=== PATIENT | male | born 1950 | race Caucasian/White ===

== ENCOUNTER → 2020-08-24 13:10 | Outpatient (BNVA) | payer MEDICARE, SELFPAY | PROVIDERS: PCP Internal Medicine; Visit Provider Urology | DX: N40.1 Benign prostatic hyperplasia with lower urinary tract symptoms (principal); R35.1 Nocturia; N13.8 Other obstructive and reflux uropathy | CPT/HCPCS: 51798; 81002; 99212 ==

== ENCOUNTER → 2021-02-22 10:41 | Outpatient (BNVA) | payer MEDICARE, SELFPAY | PROVIDERS: PCP Internal Medicine; Referring Provider Internal Medicine; Visit Provider Urology | DX: N40.1 Benign prostatic hyperplasia with lower urinary tract symptoms (principal); N13.8 Other obstructive and reflux uropathy | CPT/HCPCS: 51798; 99212 ==

== ENCOUNTER → 2021-08-23 09:28 | Outpatient (BNVA) | payer MEDICARE, SELFPAY | PROVIDERS: PCP Internal Medicine; Visit Provider Urology | DX: R35.1 Nocturia (principal); N40.1 Benign prostatic hyperplasia with lower urinary tract symptoms; N13.8 Other obstructive and reflux uropathy | CPT/HCPCS: 51798; 99212 ==

== ENCOUNTER → 2022-08-22 10:26 | Outpatient (BNVA) | payer MEDICARE, SELFPAY | PROVIDERS: PCP Internal Medicine; Visit Provider Urology | DX: N40.1 Benign prostatic hyperplasia with lower urinary tract symptoms (principal); N13.8 Other obstructive and reflux uropathy; R35.1 Nocturia | CPT/HCPCS: 51798; 99212 ==

== ENCOUNTER 2023-08-20 09:09 | Outpatient (AMB) | payer MEDICARE, SELFPAY ==
--- NOTE | 2023-08-20 09:40 | MHC.OFFVIS ---
Intake Intake Visit Reasons: 1Y pvr Intake Note: Patient is Present for Follow Up Urology Medication: Finasteride, Terazosin, Antibiotic Allergies: None Blood Thinners: Xarelto PVR: 257 Allergies No Known Allergies Allergy (Verified 08/20/23 09:41) HPI HPI Comments History of Present Illness Details Ken is a pleasant male. He is a patient of . Seen for the following urologic conditions - lower urinary tract symptoms PVR 250 Progressive weakness of stream Maximum medical therapy Recommend GreenLight laser prostatectomy Risks and benefits discussed Would like to proceed to late October early November Prior conversation about cycling in [place] through the [employer] Lower Urinary Tract Symptoms: Current visit is for further evaluation of, lower urinary tract symptoms, predominate obstructive symptoms. Current treatment includes 07/07 , alpha elaine, terazosin 10/08 , alpha elaine, terazosin, 5-AR, finasteride. Prostate Symptom Score Moderate (9-19), Bother 2. Symptoms include 06/07 , incomplete emptying, weak stream, nocturia (>2), and are progressing 10/08 , incomplete emptying 400cc, weak stream, and are stable. Results from testing include cystoscopy Trilobar hypertrophy 07/07 Prior Prostate Score moderate. PSA 10/08 5.8 01/06 5.1, 04/07 4.0, 06/09 2.1, 02/08 1.8, 08/11 1.9 Prostate volume 30-50gm. Testing at next visit will include bladder scan [facility] Medical History Pyuria H/O urinary retention Incomplete emptying of bladder Surgical History History of surgery Social History Patient Tobacco Use Status: Never used Tobacco Review of Systems Const Denies chills and Denies fever(s) Card Reports no additional complaints and Denies syncope Resp Denies cough GI Denies abdominal pain and Denies heartburn Reports as per HPI and Denies change in libido Neuro Denies syncope Psych Denies change in libido Endo Denies change in libido Physical Exam Const General: cooperative, healthy appearing, comfortable and no acute distress Orientation/consciousness: patient oriented x3 HEENT Face and sinus: Yes normal facial exam Mouth: moist mucous membranes Neck Neck: Yes normal visual inspection, Yes full ROM and Yes trachea midline Chest Chest palpation & inspection: normal inspection of the chest Resp Effort & Inspection: normal respiratory effort, able to speak in complete sentences and no respiratory distress GI Inspection: Yes normal to inspection Back/Spine/Pelvis Cervical Spine: normal cervical lordosis Thoracic/Lumbar Spine: thoracic and lumbar spine normal to inspection Skin General skin exam: no rashes or lesions noted Neuro General: patient oriented x3, gait normal, tone normal and moves all extremities Extrem General: Yes normal to inspection and Yes capillary refill normal Office Procedures Post Void Residual Post Residual Void Post Void Residual (PVR): 257 [id number] Void Residual by ultrasound Results AMB Urinalysis, Automated UA Leukoctes 500 Sai/uL Last Edit by Magnolia Cunningham [facility] on 08/20/23 09:51 UA Nitrite Negative Last Edit by Magnolia Cunningham [facility] on 08/20/23 09:51 UA Urobilinogen 0.2 mg/dL Last Edit by Magnolia Cunningham [facility] on 08/20/23 09:51 UA Protein 15 mg/dL Last Edit by Magnolia Cunningham [facility] on 08/20/23 09:51 UA pH 6.5 Last Edit by Magnolia Cunningham [facility] on 08/20/23 09:51 UA Blood 25 Kumar/uL Last Edit by Magnolia Cunningham [facility] on 08/20/23 09:51 UA Specific [place] 1.015 Last Edit by Magnolia Cunningham [facility] on 08/20/23 09:51 UA Ketone Negative Last Edit by Magnolia Cunningham [facility] on 08/20/23 09:51 UA Bilirubin 0 mg/dL Last Edit by Magnolia Cunningham [facility] on 08/20/23 09:51 UA Glucose 0 mg/dL Last Edit by Magnolia Cunningham [facility] on 08/20/23 09:51 Results Reviewed Results Reviewed: Laboratory Last Values Urine pH (Auto) 6.5 08/20/23 09:43 Specific [place] (Auto) 1.015 08/20/23 09:43 Urine Protein (Auto) 15 mg/dL 08/20/23 09:43 Glucose (UA)(Auto) 0 mg/dL 08/20/23 09:43 Urine Ketones (Auto) Negative 08/20/23 09:43 Urine Blood (Auto) 25 Kumar/uL 08/20/23 09:43 Urine Nitrite (Auto) Negative 08/20/23 09:43 Urine Bilirubin (Auto) 0 mg/dL 08/20/23 09:43 Urine Urobilinogen (Auto) 0.2 mg/dL 08/20/23 09:43 Leukocyte Esterase (Auto) 500 Sai/uL 08/20/23 09:43 Assessment & Plan Assessment & Plan (1) Nocturia more than twice per night: Code(s): R35.1 - Nocturia (2) BPH w urinary obs/LUTS: Code(s): N40.1 - Benign prostatic hyperplasia with lower urinary tract symptoms; N13.8 - Other obstructive and reflux uropathy Plan We discussed the nature of the decision and reasonable options for performing a prostate intervention. Interventions include TURP, GreenLight laser enucleation of the prostate, GreenLight laser ablation of the prostate, transurethral incision of the prostate, and I-Tend prostate procedure. Options such as medical therapy were discussed. The relative uncertainties and benefits related to each alternate procedure were adequately discussed. General surgical risks including, but not limited to, pain, bleeding, infection, myocardial infarction, pulmonary embolus, deep vein thrombosis and cerebrovascular accident which may result in further hospitalization were discussed. Full disclosure of the procedure as well as all major risks, benefits and complications were discussed including but not limited to damage to the urethra or bladder neck, recurrent BPH, retrograde ejaculation, bladder infection, urge, de goldy frequency, incomplete emptying, dysuria, remote chance of erectile dysfunction, epididymitis, and meatal stenosis. The success rate of the procedure was discussed. Success of the procedure in the short-term does not necessarily guarantee that long-term success will be maintained. Suitable follow up will need to be maintained. The patient showed understanding of discussion. An opportunity was provided for questions to be answered and wishes to proceed with the following procedure. - GreenLight laser prostatectomy Orders: Orders AMB Post Void Residual by ultrasound Today N13.8 - Other obstructive and reflux uropathy, N40.1 - Benign prostatic hyperplasia with lower urinary tract symptoms AMB Urinalysis Automated Today Z13.9 - Encounter for screening, unspecified Patient Instructions: Imaging studies, laboratory and physical exam results were discussed and reviewed in detail. No major barriers to patient understanding were identified. An opportunity to ask questions regarding the treatment plan was provided. All questions were answered. The patient expressed understanding and agreement with the above treatment plan. The patient is aware they should contact our office by phone for worsening of their current condition or the appearance of new urologic symptoms. Compliance is encouraged with any medications and followup testing that is ordered. It is a privilege to participate in the urologic care of your patient. If you have any questions or concerns regarding treatment for the above conditions, or other urologic issues, please do not hesitate to contact me. The office telephone contact is [phone]. This note is constructed using voice recognition software. While every effort has been made to ensure accuracy teletypist errors may have been included. Yours sincerely, Dr Neo Mcgraw MD, [facility] - Urology Providers of Expert, Compassionate Care for the Genitourinary System Coding Level of Care Code Est Pt Level 4 (65247) Diagnoses Nocturia more than twice per night R35.1 BPH w urinary obs/LUTS N40.1; N13.8 CPT Codes Post Residual Void - PVR CPT Code: 97374-Drfg Void Residual by ultrasound ([id number])
== END 2023-08-20 10:31 | disposition home or self-care (01) ==
PROVIDERS: Visit Provider Urology
DX: N40.1 Benign prostatic hyperplasia with lower urinary tract symptoms (principal); R35.1 Nocturia; N13.8 Other obstructive and reflux uropathy; Z13.9 Encounter for screening, unspecified
CPT/HCPCS: 99214

== ENCOUNTER → 2023-08-20 09:09 | Outpatient (BNVA) | payer MEDICARE, SELFPAY | PROVIDERS: Visit Provider Urology | DX: N40.1 Benign prostatic hyperplasia with lower urinary tract symptoms (principal); N13.8 Other obstructive and reflux uropathy; R35.1 Nocturia | CPT/HCPCS: 51798; 81003; 99212 ==

== ENCOUNTER 2023-11-19 09:03 | Outpatient (AMB) | payer MEDICARE, SELFPAY ==
--- NOTE | 2023-11-19 09:04 | A.OFFVIS_ITS ---
Intake Intake Visit Reasons: H&P Greenlight(Confirmed) Intake Note: Patient presents today for a telehealth follow-up Meds- Finasteride, Terazosin Allergies to Antibiotic- No Known Allergies Blood Thinner- None [employer] Required: No Allergies No Known Allergies Allergy (Verified 11/19/23 09:06) [facility] HPI Comments History of Present Illness Details Ken is a pleasant male. He is a patient of . Seen for the following urologic conditions - lower urinary tract symptoms Telemedicine Evaluation 15 min Consultation [employer] Video attempted Discussed procedure and periprocedure issues Questions answered Catheter will be removed on after same-day procedure on Thursday He is seeing cardiology next week they will give guidance regarding holding the anticoagulation PVR 250 Progressive weakness of stream Maximum medical therapy h Prior conversation about cycling in [place] through the [employer] Lower Urinary Tract Symptoms: Current visit is for further evaluation of, lower urinary tract symptoms, predominate obstructive symptoms. Current treatment includes 07/07 , alpha elaine, terazosin 10/08 , alpha elaine, terazosin, 5-AR, finasteride. Prostate Symptom Score Moderate (9-19), Bother 2. Symptoms include 06/07 , incomplete emptying, weak stream, nocturia (>2), and are progressing 10/08 , incomplete emptying 400cc, weak stream, and are stable. Results from testing include cystoscopy Trilobar hypertrophy 07/07 Prior Prostate Score moderate. PSA 10/08 5.8 01/06 5.1, 04/07 4.0, 06/09 2.1, 02/08 1.8, 08/11 1.9 Prostate volume 30-50gm. Testing at next visit will include bladder scan [facility] Medical History Pyuria H/O urinary retention Incomplete emptying of bladder Surgical History History of surgery Social History Patient Tobacco Use Status: Never used Tobacco Review of Systems Const All systems reviewed & are unremarkable except as noted in HPI and below Reports no additional complaints Resp Reports no additional complaints GI Reports no additional complaints Reports as per HPI Musc Reports no additional complaints Physical Exam Telemedicine evaluation Appropriate responses Regular breathing rate and rhythm HEENT Head: Yes normal to inspection Ears: hearing grossly normal bilaterally Eyes General: appearance normal, both eyes and all related structures Neck Neck: Yes normal visual inspection Chest Chest palpation & inspection: normal inspection of the chest Resp Effort & Inspection: normal respiratory effort and able to speak in complete sentences Assessment & Plan Assessment & Plan (1) Nocturia more than twice per night: Code(s): R35.1 - Nocturia (2) BPH w urinary obs/LUTS: Code(s): N40.1 - Benign prostatic hyperplasia with lower urinary tract symptoms; N13.8 - Other obstructive and reflux uropathy Plan We discussed the nature of the decision and reasonable options for performing a prostate intervention. Interventions include TURP, GreenLight laser enucleation of the prostate, GreenLight laser ablation of the prostate, transurethral incision of the prostate, and I-Tend prostate procedure. Options such as medical therapy were discussed. The relative uncertainties and benefits related to each alternate procedure were adequately discussed. General surgical risks including, but not limited to, pain, bleeding, infection, myocardial infarction, pulmonary embolus, deep vein thrombosis and cerebrovascular accident which may result in further hospitalization were discussed. Full disclosure of the procedure as well as all major risks, benefits and complications were discussed including but not limited to damage to the urethra or bladder neck, recurrent BPH, retrograde ejaculation, bladder infection, urge, de goldy frequency, incomplete emptying, dysuria, remote chance of erectile dysfunction, epididymitis, and meatal stenosis. The success rate of the procedure was discussed. Success of the procedure in the short-term does not necessarily guarantee that long-term success will be maintained. Suitable follow up will need to be maintained. The patient showed understanding of discussion. An opportunity was provided for questions to be answered and wishes to proceed with the following procedure. - GreenLight laser prostate Patient Instructions: Imaging studies, laboratory and physical exam results were discussed and reviewed in detail. No major barriers to patient understanding were identified. An opportunity to ask questions regarding the treatment plan was provided. All questions were answered. The patient expressed understanding and agreement with the above treatment plan. The patient is aware they should contact our office by phone for worsening of their current condition or the appearance of new urologic symptoms. Compliance is encouraged with any medications and followup testing that is ordered. It is a privilege to participate in the urologic care of your patient. If you have any questions or concerns regarding treatment for the above conditions, or other urologic issues, please do not hesitate to contact me. The office te natalia contact is [phone]. This note is constructed using voice recognition software. While every effort has been made to ensure accuracy silviculture professor errors may have been included. Yours sincerely, Dr Neo Mcgraw MD, [facility] - Urology Providers of Expert, Compassionate Care for the Genitourinary System Telehealth Telehealth Location of provider rendering services: practice address Location of patient: address on file Patient Identification confirmed using: Name, : Yes Telehealth method: video Patient verbally consented to treatment: Yes Patient verbally consented to billing insurance company: Yes Patient informed of any privacy concerns related to visit: Yes Coding Level of Care Code Tele Est Pt Level 3 (62076) Diagnoses Nocturia more than twice per night R35.1 BPH w urinary obs/LUTS N40.1; N13.8
== END 2023-11-19 11:29 | disposition home or self-care (01) ==
LOC: HO.HUSH 09:04
PROVIDERS: PCP Internal Medicine; Visit Provider Urology
DX: N40.1 Benign prostatic hyperplasia with lower urinary tract symptoms (principal); R35.1 Nocturia; N13.8 Other obstructive and reflux uropathy
CPT/HCPCS: 99213

== ENCOUNTER → 2023-11-19 09:03 | Outpatient (BNVA) | payer MEDICARE, SELFPAY | PROVIDERS: PCP Internal Medicine; Visit Provider Urology ==

== ENCOUNTER 2023-11-30 05:48 | Day surgery (SDC) | payer MEDICARE, SELFPAY ==
[2023-11-30] VITALS (7 sets, daily range): BP systolic 113–161; BP diastolic 72–88; PULSE 59–81; RESP 16; TEMP 36.3–36.6; O2SAT 97–99; BMI 26.1
[2023-11-30] MEDS: Lactated Ringers 1,000 ML 80 ML IVCONT (06:28)
--- NOTE | 2023-11-30 07:27 | HO.ANESPROP2 ---
HPI - Anesthesia Eval Consult details Narrative: for laser prostate PMFSH Active Problems Active Problems: All Active Problems (Updated 11/26/23 @ 11:11 by Lia Wilson RN) Nocturia more than twice per night (Acute) BPH w urinary obs/LUTS (Acute) Epididymitis (Acute) Past Medical History Medical History (Updated 11/26/23 @ 11:11 by Lia Wilson RN) Hyperlipidemia Palpitations Elevated PSA Adenomatous colon polyp Psoriasis Anemia Atrial fibrillation HTN (hypertension) Bradycardia Murmur Dilated cardiomyopathy Post-traumatic osteoarthritis of right knee Ascending aorta dilatation Hyponatremia Nonrheumatic tricuspid valve regurgitation NSVT (nonsustained ventricular tachycardia) Hx of cardiac pacemaker On anticoagulant therapy Secondary hypercoagulability disorder Mitral regurgitation Pyuria H/O urinary retention Incomplete emptying of bladder Narrative: echo: mild LVH. Nl LV size, low norm LV fxn, enlarged RV w norm fxn. Both atria dilated. mild MR, mild TR. Normal RVSP. PM 2 yrs ago. Family History Family history of problems with anesthesia: No Surgical History Surgical History (Updated 11/26/23 @ 11:12 by Lia Wilson RN) History of permanent cardiac pacemaker placement History of total left knee replacement History of surgery History of Problems with Anesthesia: No Social History Social History Patient Tobacco Use Status: Never used Tobacco Use of substances other than those prescribed or required for medical reasons: No Are you DNR?: No Advance Directives: No Advance Directives Information Provided: Yes Meds Allergies Allergy/AdvReac Type Severity Reaction Status Date / Time No Known Allergies Allergy Verified 11/19/23 09:06 Home Medications Medication Instructions Recorded Confirmed Last Taken Type atorvastatin 20 mg tablet 20 mg PO DAILY 08/24/20 11/30/23 11/30/23 History rivaroxaban 20 mg tablet 20 mg PO DAILY 08/24/20 11/30/23 11/26/23 History amlodipine 5 mg tablet 5 mg PO DAILY 11/26/23 11/30/23 11/30/23 History fluticasone furoate 50 mcg inhalation 11/26/23 11/26/23 Unknown History mcg/actuation blister powder for inhalation Exam Height,Weight and Vital Signs: Height 5 ft 10 in Weight 82.667 kg Last Vital Signs Temp 97.3 F 11/30/23 06:13 Pulse 81 11/30/23 06:13 Resp 16 11/30/23 06:13 BP 161/88 H 11/30/23 06:13 Pulse Ox 99 11/30/23 06:13 O2 Del Method Room Air 11/30/23 06:13 Airway Mallampati Class: I TM Dist: >3cm Neck ROM: Full Loose/Missing/Broken Teeth: No Heart: ok. see above Lungs: ok Assessment and Plan Assessment Anesthesia Assessment: Anesthesia Plan Discussed and Chart Reviewed Final Anesthetic Review Family History of Problems with Anesthesia: No History of Problems with Anesthesia: No NPO: Yes ASA Class: III Final Preanesthetic Review: No Changes in Pt Med Stat, Meds/Allgs Chart Reviewed, Consent Obtained/Reviewed, Anes Risks/Benef Reviewed and DNR Form (If Appl.) Patient Risk: Intermediate Procedure Risk: Low Anesthetic Plan Anesthetic Plan: GA and Agree w/ Assess. and Plan Disposition: Standard PACU
--- NOTE | 2023-11-30 07:28 | P.HPSUR_ITS ---
Pre-Procedural Eval Section A - 24 Hr Update-Section A only Date of Service: 11/30/23 The patient is an INPATIENT: No Changes since office visit: No Cold of Flu in the past 2 weeks, No New Medical Problems, No Changes in Medication and No Patient answered all questions The patient has been examined within 24 hours of the surgical procedure. The History & Physical has been completed within 30 days and I have reviewed it.: Yes Section B - Complete if H&P > 30 days Chief Complaint: Benign prostatic hyperplasia with lower urinary tr Allergies: Allergies Allergy/AdvReac Type Severity Reaction Status Date / Time No Known Allergies Allergy Verified 11/19/23 09:06 Review of Systems Sugical H&P ROS: Negative: Constitution, Cardiovascular, Respiratory, Neurological, Psychiatric, Hem-Onc, Allergic/Immunologic, Gastrointestinal, Genitourinary, Musculoskeletal, Integumentary, Endocrine and Eyes/Ears/Nose/Th roat Exam Surgical H&P Exam: Normal: HEENT, Normal: Heart, Normal: Lungs, Normal: Extremities, Normal: Abdomen, Normal: Skin and Normal: Neurological Plan Diagnosis/Plan: Unchanged (green light laser prostate) I have reviewed the history and physical and performed a pertinent physical examination on my patient. No changes have occurred unless specified. Time Spent With Patient Time: Total time managing care of this patient today ____ minutes.
--- NOTE | 2023-11-30 07:33 | PC.NURSE ---
awaiting anesthesia consent
--- NOTE | 2023-11-30 08:35 | P.OP_ITS ---
Operative Note Operative Note Date of Service: 11/30/23 Narrative: PreOperative Diagnosis: Bladder outlet obstruction Post Operative Diagnosis: Bladder outlet obstruction Procedure: GreenLight Laser Enucleation of the prostate CPT 88261 Surgeon: Dr Neo Mcgraw Anesthesia: General History of bladder outlet obstruction. Treated with alpha-elaine and other medications. Still with symptoms. On cystoscopy in office has tight bladder neck. Recommendation for prostate procedure with laser enucleation of prostate. Risks and benefits have been discussed. Focus was placed on development of retrograde ejaculation which is a normal part of this procedure. Procedure: After informed consent was verified the patient was brought to the operating room and placed in a supine position. Anesthesia was administered per protocol. Patient was placed in modified dorsal lithotomy position and prepped and draped in a sterile fashion. Safety pause time-out was confirmed. Antibiotics have been given. A Twenty-four Cook Islander laser cystoscope was inserted per urethra. No abnormalities were found of the anterior and bulbar urethra. The bladder was examined and both ureteric orifices were seen in their normal positions away from the area of interest. Using a GreenLight laser with settings of 80 w incisions were made at the 5 and 7 o'clock position. The incisions were taken down from the bladder neck down to the level of the veru. These were gradually deepened in order to define the lateral aspects of the median lobe area. Once clearly defined they will also extended in the lateral directions in order to create a deep groove. The median lobe was then ablated and enucleated tissue released into the bladder with the laser power increased to 100 W. The median lobe area was cleared. It was apparent he had a small prostate with high-riding bladder neck and relatively little lateral lobes. Given these findings the lateral lobe tissue that was removed was developed from the 5 and 7 o'clock position and elevated up each sidewall. A similar procedure was repeated on the patient's right-hand side. The only differences being the position of the lateral groove at he 7 'oclock positioin and the secondary groove at the 11 o'clock position, Otherwise the procedure was developed in a mirror fashion. When this was had been completed debris and pieces of prostate were removed from the bladder with irrigation. Both ureteric orifices were reviewed again in shown to be patent in away from any areas of energy damage. The apical area was reviewed in any stray ooze was controlled. A 22 [place] 30 cc balloon Hurt catheter was placed over a stylet into the bladder. Clear efflux was obtained upopn irrigation with a Emerson piston syringe. 30 cc was placed in the balloon and gentle traction was placed. A snap was used to hold tension on the catheter to control bleeding during patient moved and transported. A drainage bag was placed. Once transportation is complete to the PACU the snap will be removed. The patient tolerated the procedure well, he was extubated in the operating and transferred in a stable condition to the recovery area. Total Power 28 kW Lasing time 5:14 Pathology: Prostate tissue Drains: Hurt catheter
[2023-11-30] MEDS: Acetaminophen 325 MG TABLET 650 MG PO (09:06)
== END 2023-11-30 10:02 | disposition home or self-care (01) ==
PROVIDERS: PCP Internal Medicine; Visit Provider Urology
PROC: (CPT 52648; principal; 2023-11-30 07:30)
DX: N40.1 Benign prostatic hyperplasia with lower urinary tract symptoms (principal); R35.1 Nocturia; N13.8 Other obstructive and reflux uropathy; R33.8 Other retention of urine; R39.12 Poor urinary stream; R82.81 Pyuria; I10 Essential (primary) hypertension; I48.91 Unspecified atrial fibrillation; Z95.0 Presence of cardiac pacemaker; Z79.01 Long term (current) use of anticoagulants; Z79.899 Other long term (current) drug therapy; Z98.890 Other specified postprocedural states
CPT/HCPCS: 52649; 88305; J1956; J2704; J3010

== ENCOUNTER → 2023-11-30 05:48 | Outpatient (BNV) | payer MEDICARE, SELFPAY | PROVIDERS: PCP Internal Medicine; Visit Provider Urology | DX: N40.1 Benign prostatic hyperplasia with lower urinary tract symptoms (principal); N13.8 Other obstructive and reflux uropathy | CPT/HCPCS: 52649 ==

== ENCOUNTER → 2023-12-03 08:08 | Outpatient (BNVA) | payer MEDICARE, SELFPAY | PROVIDERS: PCP Internal Medicine; Visit Provider Urology | DX: N40.1 Benign prostatic hyperplasia with lower urinary tract symptoms (principal); N13.8 Other obstructive and reflux uropathy | CPT/HCPCS: 51700; 51798 ==

== ENCOUNTER 2024-01-05 15:11 | Outpatient (AMB) | payer MEDICARE, SELFPAY ==
--- NOTE | 2024-01-05 15:35 | A.OFFVIS_ITS ---
Intake Intake Visit Reasons: Greenlight follow up(Confirmed) Intake Note: Patient Is Present for Post Op Follow up Procedure Done: [facility] Urology Med: Finasteride, Terazosin Antibiotic Allergy:None Blood Thinner: Rivaraxaban PVR:16 Allergies No Known Allergies Allergy (Verified 01/05/24 15:37) HPI HPI Comments History of Present Illness Details Ken is a pleasant male. He is a patient of . Seen for the following urologic conditions - lower urinary tract symptoms Significant improvement in PVR Down to 20 cc Stop alpha elaine Six-month follow-up labs Prior PVR 250 - on maximum medical therapy Prior conversation about cycling in [place] through the [employer] Lower Urinary Tract Symptoms: Current visit is for further evaluation of, lower urinary tract symptoms, predominate obstructive symptoms. Current treatment includes 07/07 , alpha elaine, terazosin 10/08 , alpha elaine, terazosin, 5-AR, finasteride. Prostate Symptom Score Moderate (9-19), Bother 2. Symptoms include 06/07 , incomplete emptying, weak stream, nocturia (>2), and are progressing 10/08 , incomplete emptying 400cc, weak stream, and are stable. Results from testing include cystoscopy Trilobar hypertrophy 07/07 Prior Prostate Score moderate. PSA 10/08 5.8 01/06 5.1, 04/07 4.0, 06/09 2.1, 02/08 1.8, 08/11 1.9 Prostate volume 30-50gm. Testing at next visit will include bladder scan [facility] Medical History Hyperlipidemia Palpitations Elevated PSA Adenomatous colon polyp Psoriasis Anemia Atrial fibrillation HTN (hypertension) Bradycardia Murmur Dilated cardiomyopathy Post-traumatic osteoarthritis of right knee Ascending aorta dilatation Hyponatremia Nonrheumatic tricuspid valve regurgitation NSVT (nonsustained ventricular tachycardia) Hx of cardiac pacemaker On anticoagulant therapy Secondary hypercoagulability disorder Mitral regurgitation Pyuria H/O urinary retention Incomplete emptying of bladder Surgical History History of permanent cardiac pacemaker placement History of total left knee replacement History of surgery Social History Patient Tobacco Use Status: Never used Tobacco Review of Systems Const Denies chills and Denies fever(s) Card Reports no additional complaints and Denies syncope Resp Denies cough GI Denies abdominal pain and Denies heartburn Reports as per HPI and Denies change in libido Neuro Denies syncope Psych Denies change in libido Endo Denies change in libido Physical Exam Const General: cooperative, healthy appearing, comfortable and no acute distress Orientation/consciousness: patient oriented x3 HEENT Face and sinus: Yes normal facial exam Mouth: moist mucous membranes Neck Neck: Yes normal visual inspection, Yes full ROM and Yes trachea midline Chest Chest palpation & inspection: normal inspection of the chest Resp Effort & Inspection: normal respiratory effort, able to speak in complete sentences and no respiratory distress GI Inspection: Yes normal to inspection Back/Spine/Pelvis Cervical Spine: normal cervical lordosis Thoracic/Lumbar Spine: thoracic and lumbar spine normal to inspection Skin General skin exam: no rashes or lesions noted Neuro General: patient oriented x3, gait normal, tone normal and moves all extremities Extrem General: Yes normal to inspection and Yes capillary refill normal Office Procedures Post Void Residual Post Residual Void Post Void Residual (PVR): 16 [id number]-[id number] Void Residual by ultrasound Assessment & Plan Assessment & Plan (1) Nocturia more than twice per night: Code(s): R35.1 - Nocturia (2) BPH w urinary obs/LUTS: Code(s): N40.1 - Benign prostatic hyperplasia with lower urinary tract symptoms; N13.8 - Other obstructive and reflux uropathy Plan 6m f/u labs, pvr Orders: Orders AMB Post Void Residual by ultrasound Today N13.8 - Other obstructive and reflux uropathy, N40.1 - Benign prostatic hyperplasia with lower urinary tract symptoms Prostate Specific Antigen 6 Months N13.8 - Other obstructive and reflux uropathy, N40.1 - Benign prostatic hyperplasia with lower urinary tract symptoms Patient Instructions: Imaging studies, laboratory and physical exam results were discussed and reviewed in detail. No major barriers to patient understanding were identified. An opportunity to ask questions regarding the treatment plan was provided. All questions were answered. The patient expressed understanding and agreement with the above treatment plan. The patient is aware they should contact our office by phone for worsening of their current condition or the appearance of new urologic symptoms. Compliance is encouraged with any medications and followup testing that is ordered. It is a privilege to participate in the urologic care of your patient. If you have any questions or concerns regarding treatment for the above conditions, or other urologic issues, please do not hesitate to contact me. The office telephone contact is [phone]. This note is constructed using voice recognition software. While every effort has been made to ensure accuracy campaign associate errors may have been included. Yours sincerely, Dr Neo Mcgraw MD, [facility] - Urology Providers of Expert, Compassionate Care for the Genitourinary System Coding Level of Care Code Est Pt Level 3 (69017) Diagnoses Nocturia more than twice per night R35.1 BPH w urinary obs/LUTS N40.1; N13.8 CPT Codes Post Residual Void - PVR CPT Code: 52206-Tuam Void Residual by ultrasound ([id number])
== END 2024-01-05 16:00 | disposition home or self-care (01) ==
PROVIDERS: PCP Internal Medicine; Visit Provider Urology
DX: N40.1 Benign prostatic hyperplasia with lower urinary tract symptoms (principal); R35.1 Nocturia; N13.8 Other obstructive and reflux uropathy
CPT/HCPCS: 99024

== ENCOUNTER → 2024-01-05 15:11 | Outpatient (BNVA) | payer MEDICARE, SELFPAY | PROVIDERS: PCP Internal Medicine; Visit Provider Urology | DX: N40.1 Benign prostatic hyperplasia with lower urinary tract symptoms (principal); N13.8 Other obstructive and reflux uropathy; R35.1 Nocturia | CPT/HCPCS: 51798; 99212 ==

== ENCOUNTER 2024-07-26 10:08 | Outpatient (AMB) | payer MEDICARE, SELFPAY ==
--- NOTE | 2024-07-26 10:35 | MHC.OFFVIS ---
Intake Visit Reasons: 6M PSA/PVR(set)Elevated Intake Note: Patient is Present for PVR/PSA Urology Med: Terazosin, Finasteride Antibiotic Allergy: None Blood Thinner: Rivaroxaban(Xarelto) Last PVR: 16ml Todays PVR: 0 PSA- 07/20/2024 4.2(H) Patient states he would like to discuss Continuing Finasteride, he just finished Finasteride and stated that he was told at last visit that he should stop Finasteride once his prescription is finished. Vice President Digital Strategist Required: No Accompanied by: Self / Same As Patient Allergies No Known Allergies Allergy (Verified 07/26/24 10:37) HPI Comments Details: Ken is a pleasant male. He is a patient of . Seen for the following urologic conditions - lower urinary tract symptoms Here for six-month follow-up PVR 0 cc PSA remains high end of normal range Six-month follow-up PSA 12/12 GreenLight laser prostatectomy Prior conversation about cycling in [place] through the [employer] Lower Urinary Tract Symptoms: Current visit is for further evaluation of, lower urinary tract symptoms, predominate obstructive symptoms. Current treatment includes 07/07 , alpha elaine, terazosin 10/08 , alpha elaine, terazosin, 5-AR, finasteride. Prostate Symptom Score Moderate (9-19), Bother 2. Symptoms include 06/07 , incomplete emptying, weak stream, nocturia (>2), and are progressing 10/08 , incomplete emptying 400cc, weak stream, and are stable. Results from testing include cystoscopy Trilobar hypertrophy 07/07 Prior Prostate Score moderate. PSA 10/08 5.8 01/06 5.1, 04/07 4.0, 06/09 2.1, 02/08 1.8, 08/11 1.9, 07/14 4.2 Prostate volume 30-50gm. Testing at next visit will include bladder scan [facility] Medical History Hyperlipidemia Palpitations Elevated PSA Adenomatous colon polyp Psoriasis Anemia Atrial fibrillation HTN (hypertension) Bradycardia Murmur Dilated cardiomyopathy Post-traumatic osteoarthritis of right knee Ascending aorta dilatation Hyponatremia Nonrheumatic tricuspid valve regurgitation NSVT (nonsustained ventricular tachycardia) Hx of cardiac pacemaker On anticoagulant therapy Secondary hypercoagulability disorder Mitral regurgitation Pyuria H/O urinary retention Incomplete emptying of bladder Surgical History History of permanent cardiac pacemaker placement History of total left knee replacement History of surgery Social History Patient Tobacco Use Status: Never used Tobacco Review of Systems Const Denies chills and Denies fever(s) Card Reports no additional complaints and Denies syncope Resp Denies cough GI Denies abdominal pain and Denies heartburn Reports as per HPI and Denies change in libido Neuro Denies syncope Psych Denies change in libido Endo Denies change in libido Physical Exam Const General: cooperative, healthy appearing, comfortable and no acute distress Orientation/consciousness: patient oriented x3 HEENT Face and sinus: Yes normal facial exam Mouth: moist mucous membranes Neck Neck: Yes normal visual inspection, Yes full ROM and Yes trachea midline Chest Chest palpation & inspection: normal inspection of the chest Resp Effort & Inspection: normal respiratory effort, able to speak in complete sentences and no respiratory distress GI Inspection: Yes normal to inspection Back/Spine/Pelvis Cervical Spine: normal cervical lordosis Thoracic/Lumbar Spine: thoracic and lumbar spine normal to inspection Skin General skin exam: no rashes or lesions noted Neuro General: patient oriented x3, gait normal, tone normal and moves all extremities Extrem General: Yes normal to inspection and Yes capillary refill normal Office Procedures Post Void Residual Post Residual Void Post Void Residual (PVR): 0 [id number]-Rxea Void Residual by ultrasound Assessment & Plan Assessment & Plan (1) BPH w urinary obs/LUTS: Code(s): N40.1 - Benign prostatic hyperplasia with lower urinary tract symptoms; N13.8 - Other obstructive and reflux uropathy Category: Medical (2) Nocturia more than twice per night: Code(s): R35.1 - Nocturia Category: Medical Plan Six-month follow-up PSA Orders: Orders AMB Post Void Residual by ultrasound Today N13.8 - Other obstructive and reflux uropathy, N40.1 - Benign prostatic hyperplasia with lower urinary tract symptoms PSA,Total (Free>4and<10) 6 Months N13.8 - Other obstructive and reflux uropathy, N40.1 - Benign prostatic hyperplasia with lower urinary tract symptoms Patient Instructions: Imaging studies, laboratory and physical exam results were discussed and reviewed in detail. No major barriers to patient understanding were identified. An opportunity to ask questions regarding the treatment plan was provided. All questions were answered. The patient expressed understanding and agreement with the above treatment plan. The patient is aware they should contact our office by phone for worsening of their current condition or the appearance of new urologic symptoms. Compliance is encouraged with any medications and followup testing that is ordered. It is a privilege to participate in the urologic care of your patient. If you have any questions or concerns regarding treatment for the above conditions, or other urologic issues, please do not hesitate to contact me. The office telephone contact is [phone]. This note is constructed using voice recognition software. While every effort has been made to ensure accuracy full stack net developer errors may have been included. Yours sincerely, Dr Neo Mcgraw MD, [facility] - Urology Providers of Expert, Compassionate Care for the Genitourinary System Coding Level of Care Code Est Pt Level 3 (04306) Diagnoses BPH w urinary obs/LUTS N40.1; N13.8 Nocturia more than twice per night R35.1 CPT Codes Post Residual Void - PVR CPT Code: 61204-Cwfb Void Residual by ultrasound ([id number])
== END 2024-07-26 11:38 | disposition home or self-care (01) ==
LOC: HO.HUSH 10:08
PROVIDERS: PCP Internal Medicine; Visit Provider Urology
DX: N40.1 Benign prostatic hyperplasia with lower urinary tract symptoms (principal); N13.8 Other obstructive and reflux uropathy; R35.1 Nocturia
CPT/HCPCS: 99213

== ENCOUNTER → 2024-07-26 10:08 | Outpatient (BNVA) | payer MEDICARE, SELFPAY | PROVIDERS: PCP Internal Medicine; Visit Provider Urology | DX: N40.1 Benign prostatic hyperplasia with lower urinary tract symptoms (principal); N13.8 Other obstructive and reflux uropathy; R35.1 Nocturia | CPT/HCPCS: 51798; 99212 ==

== ENCOUNTER 2025-02-02 13:05 | Outpatient (AMB) | payer MEDICARE, SELFPAY ==
--- NOTE | 2025-02-02 13:05 | A.OFFVIS_ITS ---
Intake Visit Reasons: 6m/PSA Intake Note: Pt presents as a telehealth appt today for a 6 month follow up/PSA. Allergies No Known Allergies Allergy (Verified 02/02/25 13:05) HPI Comments Details: Ken is a pleasant male. He is a patient of . Seen for the following urologic conditions - lower urinary tract symptoms Telemedicine Evaluation 15 min Consultation [employer] PSA has drifted to 5.4 off finasteride Had been as high as 5.8 in September 201712/12 [facility]Light laser prostatectomy Prior conversation about cycling in [place] through the [employer] Lower Urinary Tract Symptoms: Current visit is for further evaluation of, lower urinary tract symptoms, predominate obstructive symptoms. Current treatment includes 07/07 , alpha elaine, terazosin 10/08 , alpha elaine, terazosin, 5-AR, finasteride. Prostate Symptom Score Moderate (9-19), Bother 2. Symptoms include 06/07 , incomplete emptying, weak stream, nocturia (>2), and are progressing 10/08 , incomplete emptying 400cc, weak stream, and are stable. Results from testing include cystoscopy Trilobar hypertrophy 07/07 Prior Prostate Score moderate. PSA 10/08 5.8 01/06 5.1, 04/07 4.0, 06/09 2.1, 02/08 1.8, 08/11 1.9, 07/14 4.2, 01/13 5.4 Prostate volume 30-50gm. Testing at next visit will include bladder scan [facility] Medical History Hyperlipidemia Palpitations Elevated PSA Adenomatous colon polyp Psoriasis Anemia Atrial fibrillation HTN (hypertension) Bradycardia Murmur Dilated cardiomyopathy Post-traumatic osteoarthritis of right knee Ascending aorta dilatation Hyponatremia Nonrheumatic tricuspid valve regurgitation NSVT (nonsustained ventricular tachycardia) Hx of cardiac pacemaker On anticoagulant therapy Secondary hypercoagulability disorder Mitral regurgitation Pyuria H/O urinary retention Incomplete emptying of bladder Surgical History History of permanent cardiac pacemaker placement History of total left knee replacement History of surgery Social History Patient Tobacco Use Status: Never used Tobacco Review of Systems Const All systems reviewed & are unremarkable except as noted in HPI and below Reports no additional complaints Resp Reports no additional complaints GI Reports no additional complaints Reports as per HPI Musc Reports no additional complaints Physical Exam Telemedicine evaluation Appropriate responses Regular breathing rate and rhythm HEENT Head: Yes normal to inspection Ears: hearing grossly normal bilaterally Eyes General: appearance normal, both eyes and all related structures Neck Neck: Yes normal visual inspection Chest Chest palpation & inspection: normal inspection of the chest Resp Effort & Inspection: normal respiratory effort and able to speak in complete sentences Telehealth Telehealth Telehealth Platform: Telephone Location of provider rendering services: practice address Location of patient: address on file Patient Identification confirmed using: Name, : Yes Telehealth method: voice only Patient verbally consented to treatment: Yes Patient verbally consented to billing insurance company: Yes Patient informed of any privacy concerns related to visit: Yes Assessment & Plan Assessment & Plan (1) Nocturia more than twice per night: Code(s): R35.1 - Nocturia Category: Medical (2) BPH w urinary obs/LUTS: Code(s): N40.1 - Benign prostatic hyperplasia with lower urinary tract symptoms; N13.8 - Other obstructive and reflux uropathy Category: Medical Plan 6m f/u PSA, PVR Orders: Orders PSA,Total (Free>4and<10) 6 Months N13.8 - Other obstructive and reflux uropathy, N40.1 - Benign prostatic hyperplasia with lower urinary tract symptoms Medications: Discontinued terazosin Discontinued Reason: Patient Completed Course 5 mg PO BEDTIME 90 days 90 caps 1RF finasteride Discontinued Reason: Patient Completed Course 5 mg PO DAILY 90 days 90 tabs 1RF Patient Instructions: This note is constructed using voice recognition software. While every effort has been made to ensure accuracy support team assoc errors may have been included. Imaging studies, laboratory and physical exam results were discussed and reviewed in detail. No major barriers to patient understanding were identified. An opportunity to ask questions regarding the treatment plan was provided. All questions were answered. The patient expressed understanding and agreement with the above treatment plan. The patient is aware they should contact our office by phone for worsening of their current condition or the appearance of new urologic symptoms. Compliance is encouraged with any medications and followup testing that is ordered. It is a privilege to participate in the urologic care of your patient. If you have any questions or concerns regarding treatment for the above conditions, or other urologic issues, please do not hesitate to contact me. The office telephone contact is [phone]. Sincerely, Dr Neo Mcgraw MD, [facility] - Urology Compassionate Specialist Care for the Genitourinary System Coding Level of Care Code Tele Est Pt Level 3 (95730) Diagnoses Nocturia more than twice per night R35.1 BPH w urinary obs/LUTS N40.1; N13.8
--- OUTSIDE RECORDS SUMMARY | 2025-02-02 13:39 | XMS_ITS | Clinical Summary ---
Author Organization [address] [place] [address] [place] [phone] Phone Care Team Providers Care Lock Tender Chief Operator Name Role Phone Anand Sanchez MD Primary Care Provider [phone] Allergies Active Allergy Reactions Criticality Noted Date Comments Jkskmhjwzpgqbta-Mm-Qhmvuo nesin 06/25/2015 Urinary retention with nasal sprays Medications ibuprofen (ADVIL,MOTRIN) 400 mg tablet Take 1 tablet (400 mg total) by mouth every 6 (six) hours if needed. Active terazosin (HYTRIN) 5 mg capsule Take 1 capsule (5 mg total) by mouth at bedtime. Active fluticasone propionate (FLONASE) 50 mcg/actuation nasal spray 2 sprays in each nostril once per day for 2 weeks. 8 Active clobetasoL (TEMOVATE) 0.05 % cream Apply topically 2 times daily. Active cycloSPORINE (Restasis MultiDose) 0.05 % drops 2 Active amLODIPine (NORVASC) 5 mg tablet Take 1 tablet (5 mg total) by mouth 1 (one) time each day. 90 tablet 1 4 Active atorvastatin (LIPITOR) 20 mg tablet Take 1 tablet (20 mg total) by mouth 1 (one) time each day. 90 tablet 1 4 Active rivaroxaban (Xarelto) 20 mg tablet Take 1 tablet (20 mg total) by mouth 1 (one) time each day. 90 tablet 1 5 Active polyethylene glycol (Golytely) 236-22.74-6.74 -5.86 gram solution Take 4L by mouth once for one dose. May substitue any PEG. Starting at 6PM the night before your procedure drink 1 8oz glasses at your own pace until you complete half of the gallon. Finish 2nd half of the gallon 5 hours before your procedure. 4000 mL 5 Active bisacodyL (DULCOLAX) 5 mg EC tablet Take 2 tablets by mouth right before beginning bowel prep. See instructions provided by the office 2 tablet 5 Active amoxicillin (AMOXIL) 500 mg capsuleIndicati ons:Status post total right knee replacement Take 4 capsules (2,000 mg total) by mouth 1 (one) time for 1 dose. TAKE 4 CAPSULES 1 HOUR PRIOR TO DENTAL APPOINTMENT 4 each 2 5 025 Active Problems Problem Noted Date Diagnosed Date Status post total right knee replacement 025 Nocturnal leg cramps 02/19/2024 Overview (07/18/2024): Last Assessment & Plan: Patient reports nocturnal leg cramps in his thighs and calves on days where he has been exercising, especially after long bike rides. He tries to remain well- hydrated but admits that he does not stretch. His potassium level is normal and there is no reason to suspect that this is due to restless legs that is not consistent and has a specific trigger. I suggested that he continue with adequate hydration, increase potassium intake, states that he has active, and stretch after activity. The patient verbalizes agreement with this; if these measures do not improve symptoms, he will return to care. Sick sinus syndrome (CMS/HCC V24, CMS/HCC V28) 0 02/19/2024 Assessment & Plan (10/18/2024 8:05 AM EST): Now status post pacemaker insertion in January 2023 significant irreversible bradycardia. Normal device function noted on most recent device check; continue with in office and remote device checks as per device clinic protocol. Mitral regurgitation 11/25/2023 Overview (07/18/2024): Last Assessment & Plan: Mild on most recent echocardiogram completed 02/12/2024; he offers no symptoms concerning for worsening valvular dysfunction. We will continue to monitor with serial imaging. Assessment & Plan (10/18/2024 8:05 AM EST): Previous echocardiogram from January 2024 showing mild mitral regurgitation as well as tricuspid regurgitation. No significant murmur noted on exam today and the patient offers no symptoms concerning for worsening valvular dysfunction. Will continue to monitor this on serial imaging. Cardiac pacemaker in situ 11/24/2023 Overview (07/18/2024): Last Assessment & Plan: Continue with in office and remote device checks as per device clinic protocol; the patient was scheduled for next in office device check on 02/22/2024. Fortunately, we were able to get him in for this check today after our visit. We will await results. NSVT (nonsustained ventricul ar tachycardia) ([facility] V24, [facility] V28) 11/24/2023 Overview (07/18/2024): Last Assessment & Plan: 6 beat run noted in September 2023; no new alerts received. Will continue to monitor device per device clinic protocol. Assessment & Plan (10/18/2024 8:05 AM EST): No recent episodes noted on most recent device check from 08/2024; we will continue to monitor his device for further episodes. Secondary hypercoagulability disorder ([facility] V 24) 11/24/2023 Nonrheumatic tricuspid valve regurgitation 09/30 Overview (07/18/2024): Last Assessment & Plan: Mild tricuspid regurgitation noted on most recent echocardiogram 02/12/2024; he offers no symptoms concerning for worsening valvular dysfunction. We will continue to monitor with serial imaging. Ascending aorta dilation ([facility] V24) Overview (07/18/2024): Last Assessment & Plan: Stable on recent echocardiogram 02/12/2024; we will continue to monitor with serial imaging. Assessment & Plan (10/18/2024 8:05 AM EST): Stable on most recent echocardiogram from January 2024; we will continue to monitor this on serial imaging. Blood pressure remains well-controlled. Hyponatremia 06/29/2023 Overview (07/18/2024): Last Assessment & Plan: Resolved felt to be 2/2 to thiazide diuretic. Continue to avoid diuretic therapy. Follows with nephrology- Dr. Caitlyn Campos- [facility] Post-traumatic osteoarthritis of right knee 04/21 Dilated cardiomyopathy (CMS/HCC V24, CMS/HCC V28 ) 10/31/2022 Overview (07/18/2024): Last Assessment & Plan: The patient offers no symptoms concerning for acute heart failure or ischemia; he appears euvolemic on exam today. He remains active without any exertional symptoms. Most recent echocardiogram completed 02/12/2024 shows no significant change from previous in March 2023, EF remains 50 to 55%. We will not make any changes to his medications today; continue amlodipine. Assessment & Plan (10/18/2024 8:05 AM EST): Patient offers no symptoms concerning for overt heart failure and appears euvolemic on exam today. He remains active without any exertional symptoms. His most recent echocardiogram completed 01/2024 showed no significant change from previous echo in March 2023, EF remained 50 to 55%. We will not make any changes to the plan today. Heart murmur 09/16/2022 Bradycardia 06/11/2021 Overview (07/18/2024): Medtronic Rajeev XT SR MRI compatible pacemaker implanted 01/23/[address] Newman Last Assessment & Plan: Longstanding history of bradycardia not on AV node elaine therapy with symptomatic bradycardia heart rates 20-30s and up to 4.7 sec pause requiring single chamber pacemaker January 2023. Continue to follow in our device clinic remotely with annual in office device follow up. Essential hypertension 11/04/2018 Overview (07/18/2024): Last Assessment & Plan: Blood pressure is well-controlled on current medical therapy; continue amlodipine. Assessment & Plan (10/18/2024 8:05 AM EST): Blood pressure is well-controlled on current medical therapy; continue amlodipine. Most recent metabolic panel stable. Atrial fibrillation (CMS/HCC V24, CMS/HCC V28) 0 04/01/2016 Overview (07/18/2024): Last Assessment & Plan: Pacemaker now in place due to significant irreversible bradycardia; rate remains well-controlled. The patient remains anticoagulated with Xarelto; we discussed the risks and benefits of continuing with this and the patient wishes to continue with the current medication as prescribed. He is on the appropriate dose of Xarelto at 20 mg daily. He is aware to seek emergent medical attention for any uncontrolled bleeding, signs or symptoms of GI or other internal bleeding, or for any head injury. Assessment & Plan (10/18/2024 8:05 AM EST): Rate remains well-controlled; not on any beta-blockade secondary to history of significant bradycardia requiring pacemaker implantation. We discussed the risks and benefits of continue with anticoagulation for cardioembolic prophylaxis and he wishes to continue with the current plan. He is on the appropriate dose of Xarelto 20 mg daily for his creatinine clearance of greater than 51. He is aware to seek emergent medical attention for any uncontrolled bleeding, signs or symptoms of GI or other internal bleeding, or for any head injury. Adenomatous colon polyp 06/25/2015 Overview (07/18/2024): 2001 Anemia 06/25/2015 Hyperlipidemia 06/25/2015 Overview (07/18/2024): Last Assessment & Plan: Most recent lipid panel completed 07/2023 revealing an LDL of 49; continue statin therapy without change. Assessment & Plan (10/18/2024 7:42 AM EST): Most recent lipid panel was completed 08/2024 revealing an LDL of 57; continue atorvastatin. Palpitations 06/25/2015 Psoriasis 06/25/2015 Overview (07/18/2024): UVB therapy [facility] 2015 / Humira in past Encounters Date Type Department Care Team Description 01/09/2025 Telephone Gastroenterology - [place] [address] [place] [address] Bernie King LPN Anticoagulation (Colonoscopy on 02/06/[address] Prasad) 12/23/2024 11:05 PM EDT Ancillary Procedure [facility] [address] [place] [phone] 11/21/2024 3:30 PM EST Ancillary Procedure [facility] [address] [place] [address] from Last 3 Months Immunizations Name Administration Dates Next Due Tdap Tetanus diptheria acell ular pertussis (Boostrix; Adacel) 7yo and older 03/17/2011 Surgical History Surgery Date Site/Laterality Comments APPENDECTOMY PROCEDURE: HISTORICAL APPENDECTOMY HERNIA REPAIR PROCEDURE: HISTORICAL HERNIA REPAIR/ING; COMMENT: inguinal KNEE SURGERY PROCEDURE: HISTORICAL KNEE SURGERY; COMMENT: 3 arthgroscopies-- 2 on right one on left TONSILLECTOMY PROCEDURE: HISTORICAL TONSILLECTOMY COLONOSCOPY 2000 PROCEDURE: HISTORICAL COLONOSCOPY; COMMENT: Pleet; single adenoma COLONOSCOPY 2004 PROCEDURE: HISTORICAL COLONOSCOPY; COMMENT: Pleet; no polyps COLONOSCOPY 02/02/2009 PROCEDURE: HISTORICAL COLONOSCOPY; COMMENT: Pleet; no polyps. COLONOSCOPY 10/13/2017 PROCEDURE: HISTORICAL COLONOSCOPY; COMMENT: 5 mm rectal polyp: hyperplastic. TOTAL KNEE ARTHROPLASTY 11/16/2018 Bilateral PROCEDURE: HISTORICAL TOTAL KNEE REPLACE Medical History Medical History Date Comments Atrial fibrillation (CMS/HCC V24, CMS/HCC V28) DX:Atrial fibrillation (HCC) Anemia 06/25/2015 DX:Anemia Psoriasis 06/25/2015 DX:Psoriasis Adenomatous colon polyp 06/25/2015 DX:Adeno matous colon polyp; COMMENT: 2000 History of elevated PSA 06/25/2015 DX:Histo ry of elevated PSA Palpitations 06/25/2015 DX:Palpitations Hyperlipidemia 06/25/2015 DX:Hyperlipidemi a Family History Medical History Relation Name Comments No Known Problems Daughter x Alzheimer's disease Father Colon cancer Father alzheimers / de ceased age 80/ diabetes/ CHF Diabetes Father Heart failure Father Arthritis Mother Relation Name Status Comments Daughter x Alive x2 Father (Age 80) Mother Social History Tobacco Use Types Packs/Day Years Used Date Smoking Tobacco: Never Smokeless Tobacco: Never Tobacco Cessation:Counseling Given: Not Answered Alcohol Use Standard Drinks/Week Comments Yes 0 (1 standard drink = 0.6 oz pur e alcohol) 1 pint per day Housing Instability Answer Date Recorde d Are you worried that in the next 2 months you may not have stable housing? No 08/26/2024 Food Access & Nutrition Answer Date Rec orded Do you have access to a vari ety of food including fruits and vegetables? No 08/26/2024 Access to Healthcare Answer Date Record ed Within the last 3 months, ho w many times did you visit the emergency department for your medical care? 0 08/19/2024 Health Literacy Answer Date Recorded How often do you need to hav e someone help you when you read instructions, pamphlets, or other written material from your doctor or pharmacy? Never 08/26/2024 Caregiver: How often do you need to have someone help you when you read instructions, pamphlets, or other written material from your doctor or pharmacy? Not on file 08/26/2024 Financial Risk Answer Date Recorded How hard is it for you to pa y for the very basics like food, housing, medical care, and air conditioning / heating? Patient declined 08/26/2024 Transportation Answer Date Recorded Has the lack of transportati on kept you from meetings, work, or from getting things needed for daily living? No Has the lack of transportati on kept you from medical appointments or from getting medications? No 08/26/2024 Social Isolation Answer Date Recorded How often do you feel lonely or isolated from th ose around you? Never 08/26/2024 Food Risk Answer Date Recorded Within the past 12 months we worried whether our food would run out before we got money to buy more. Never true 08/26/2024 Within the past 12 months th e food we bought just didn't last and we didn't have money to get more. Never true 08/26/2024 Dependent Care Answer Date Recorded Do you need help finding or paying for care for your loved ones. For example, child attendant or elderly care for an older adult? No 08/26/2024 Education Answer Date Recorded Do you think completing more education or training, like finishing a GED, going to college, or learning a trade, would be helpful for you? No 08/26/2024 Employment and Income Answer Date Recor ded During the last four weeks, have you been actively looking for work? No 08/26/2024 Living Situation Answer Date Recorded What is your living situation? 1 10/27/2023 Sex and Gender Information Value Date Recorded Sex Assigned at Male 07/26/2024 9:16 AM EST Legal Sex Male 6:38 AM EST Gender Identity Male 07/26/2024 9:16 AM EST Sexual Orientation Not on file Obstetrics History Last Filed Vital Signs Vital Sign Reading Time Taken Comments Blood Pressure 121/70 10/18/2024 7:36 AM EST Pulse 67 10/18/2024 7:36 AM EST Temperature - - Respiratory Rate - - Oxygen Saturation 99% 10/18/2024 7:36 AM EST Inhaled Oxygen Concentration - - Weight 60.8 kg (134 lb) 10/18/2024 7:36 AM EST Height 177.8 cm (5' 10 ) 10/18/2024 7:36 AM EST Body Mass Index 19.23 10/18/2024 7:36 AM EST Plan of Treatment Upcoming Encounters Date Type Department Care Team (Late st Contact Info) Description 02/06/2025 10:00 AM EDT Hospital Encounter [facility] [address] [place] [phone] Jose Armando Prasad MD [address] [facility] [address] [place] [address] Henry Bhandari, [facility] [address] [place] [address] 02/21/2025 9:00 AM EDT Ancillary Procedure [facility] [address] [facility] [address] [place] [phone] 03/23/2025 8:30 AM EDT Office Visit Orthopedic Surgery - [place] [address] [facility] [address] [place] [phone] Nicanor Arreaga MD 175 [facility] [address] [place] [address] 04/12/2025 8:50 AM EDT Office Visit [facility] [address] [facility] [address] [place] [phone] James Roque MD [address] [facility] [address] [place] [address] Health Maintenance Due Date Last Done Comments Pneumococcal Vaccine: 50+ Years (1 of 1 - PCV) 1999 Zoster Vaccines (1 of 2) 1999 DTaP,Tdap,and Td Vaccines (2 - Td or Tdap) 03/17/2021 03/17/2011 Hepatitis C Screening 08/30/2022 Colorectal Cancer Screening: CT Colonography 07/18/2024 RSV Immunization Adult Patients (1 - 1-dose 75+ series) 2024 COVID-19 Vaccine ( season) 2024 06/20/2024, 06/24/2023, 06/16/2022, Additional history exists Depression Screening 08/26/2025 08/26/2024 Falls Risk Assessment 08/26/2025 08/26/2024 Hypertension/CHF/CAD Annual BMP Blood Test 08/26/2025 08/26/2024, 05/25/2024, 05/25/2024, Additional history exists Medicare Annual Wellness Visit 08/26/2025 08/26/2024 Social Influencers of Health Screening 08/26/2025 08/26/2024 Colorectal Cancer Screening: FIT-DNA (Cologuard) 07/05/2027 07/05/2024, 07/05/2024 Cholesterol Screening (Lipid Panel) 08/26/2029 08/26/2024, 03/07/2024, 03/07/2024 Colorectal Cancer Screening: Colonoscopy Discontinued 10/13/2017, 10/13/2017 Influenza Vaccine Completed 06/20/2024, , 06/24/2023, Additional history exists HIB Vaccines Aged Out No longer eligi ble based on patient's age to complete this topic HPV Vaccines Aged Out No longer eligi ble based on patient's age to complete this topic Hepatitis A Vaccines Aged Out No long er eligible based on patient's age to complete this topic Hepatitis B Vaccines Aged Out No long er eligible based on patient's age to complete this topic IPV Vaccines Aged Out No longer eligi ble based on patient's age to complete this topic MMR Vaccines Aged Out No longer eligi ble based on patient's age to complete this topic Meningococcal ACWY Vaccine Aged Out N o longer eligible based on patient's age to complete this topic Meningococcal B Vaccine Aged Out No l onger eligible based on patient's age to complete this topic RSV Immunization Patients Under 20 months Aged Out No longer eligible based on patient's age to complete this topic Varicella Vaccines Aged Out No longer eligible based on patient's age to complete this topic Medical Devices Implanted Type Area Vice President Quality Assurance Device Identifier Shelf Expiration Date Model / Serial / Lot Medt-Card [place] Xt Sr Mri [id number] Implanted:01/2023 (Quantity not on file) Cardiac Pacemaker [employer] - CARDIAC RHYTH-CRDM [id number] XT SR MRI [id number] / [id number] / Procedures Procedure Name Priority Date/Time Associated Diagnosis Comments CARDIAC DEVICE CHECK- REMOTE- MURJ Routine 12/23/2024 11:00 PM EDT CARDIAC DEVICE CHECK- REMOTE- MURJ Routine 11/21/2024 3:25 PM EST BASIC METABOLIC PANEL Routine 08/26/2024 9:33 AM EST Pure hypercholesterolemia LIPID PANEL WITH REFLEX TO DIRECT LDL Routine 08/26/2024 9:33 AM EST Pure hypercholesterolemia HM COLONOSCOPY Routine 10/13/2017 from Last 3 Months or Most Recently Relevant to Health Maintenance Results * Cardiac device check - Remote- MURJ (12/23/2024 11:00 PM EDT) Only the most recent of2 resultswithin the time period is included. Date Time Interrogation Session [id number] CV DEVICE CHECK Type Interrogation Session Remote CV DEVICE CHECK Implantable Pulse Generator Vice President Quality Assurance MDT CV DEVICE CHECK Implantable Pulse Generator Type IPG CV DEVICE CHECK Implantable Pulse Generator Model Rajeev XT SR MRI [id number] CV DEVICE CHECK Implantable Pulse Generator Serial Number [id number] CV DEVICE CHECK Implantable Pulse Generator Implant Date 20230123 CV DEVICE CHECK Battery Remaining Longevity 133.0 CV DEVICE CHECK Battery Voltage 3.020 CV D EVICE CHECK Battery EXPLOSIVE OPERATOR SUPERVISOR Trigger 2.625 CV DEVICE CHECK Battery Status Middle of Service CV DEVICE CHECK Isaias Statistic RV Percent Paced 98.20 CV DEVICE CHECK Lead Channel Sensing Intrinsic Amplitude 19.500 CV DEVICE CHECK Lead Channel Setting Sensing Sensitivity 0.90 CV DEVICE CHECK Lead Channel Impedance Value 361 CV DEVICE CHECK Lead Channel Pacing Threshold Amplitude 0.750 CV DEVICE CHECK Lead Channel Pacing Threshold Pulse Width 0.4 CV DEVICE CHECK Lead Channel RV Pacing Threshold Date 2024-05-19 CV DEVICE CHECK Lead Channel Setting Pacing Amplitude 2.000 CV DEVICE CHECK Lead Channel Setting Pacing Pulse Width 0.4 CV DEVICE CHECK Isaias Setting Mode (NBG Code) VVIR CV DEVICE CHECK Isaias Setting Lower Rate Limit 60 CV DEVICE CHECK Isaias Setting Maximum Sensor Rate 130 CV DEVICE CHECK Zone Setting Type Category VT CV DEVICE CHECK Rate 167 CV DEVICE CHECK Zone Setting Status ENABLED CV DEVICE CHECK Zone ID 6 CV DEVICE CHECK Date of Service 2024-05-30 CV DEVICE CHECK Anatomical Region Laterality Modality Device Interroga tion 05/19/2024 10:3 4 PM EDT Impressions 05/20/2024 2:32 PM EDT Tachycardia: Permanent AF * Stored EGMs are consistent with or suggestive of Permanent Atrial Fibrillation *VT versus breakthrough AF RVR Normal Remote: No Events * Normal Device Function * Alerts or events: None * Battery: OK, 11.08 yrs * Sensing, impedance and thresholds reviewed * Programmed parameters reviewed * Presenting rhythm reviewed * Heart Rate Histograms reviewed * No significant changes noted Narrative Procedure Note Sangita Mckeon NP - 12/23/2024 IMPRESSION: Tachycardia: Permanent AF * Stored EGMs are consistent with or suggestive of Permanent AtrialFibrillation *VT versus breakthrough AF RVR Normal Remote: No Events * Normal Device Function * Alerts or events: None * Battery: OK, 11.08 yrs * Sensing, impedance and thresholds reviewed * Programmed parameters reviewed * Presenting rhythm reviewed * Heart Rate Histograms reviewed * No significant changes noted Sangita Mckeon NP CV IMPLANTABLE CARDIAC DEVIC E PROCEDURES Final Result * Lipid panel with reflex to direct LDL (08/26/2024 9:33 AM EST) Cholesterol 140 0 - 200 mg/dL LAB CHEMISTRY METHOD 08/26/2024 11:48 AM EST [facility] Triglycerides 22 0 - 150 mg/dL LAB CHEMISTRY METHOD 08/26/2024 11:48 AM EST [facility] HDL 79 >=40 mg/dL LAB CHEMISTRY METHOD 08/26/2024 11:48 AM [facility] LDL Calculated 57 0 - 100 mg/dL LAB CHEMISTRY METHOD 08/26/2024 11:48 AM [facility] VLDL Cholesterol Trev 4.4 mg/dL LAB CHEMISTRY METHOD 08/26/2024 11:48 AM [facility] Non HDL Chol. (LDL+VLDL) 61 <145 mg/dL LAB CHEMISTRY METHOD 08/26/2024 11:48 AM EST [facility] Chol/HDL Ratio 1.8 0.0 - 4.4 LAB CHEMISTRY METHOD 08/26/2024 11:48 AM [facility] Blood Venous blood specimen / Unknown Venipuncture / Unknown 08/26/2024 9:33 AM EST 08/26/2024 9:33 AM EST Anand Sanchez MD LAB BLOOD ORDERABLES Final Res ult [facility] [address] [place] [address], [place] [phone] * (ABNORMAL) Basic metabolic panel (08/26/2024 9:33 AM EST) Sodium 135 133 - 145 mmol/L LAB CHEMISTRY METHOD 08/26/2024 11:43 AM EST [facility] Potassium 4.4 3.5 - 5.5 mmol/L LAB CHEMISTRY METHOD 08/26/2024 11:43 AM [facility] Chloride 104 96 - 110 mmol/L LAB CHEMISTRY METHOD 08/26/2024 11:43 AM [facility] CO2 25 21 - 32 mmol/L LAB CHEMISTRY METHOD 08/26/2024 11:43 AM [facility] Anion Gap 6 3 - 11 LAB CHEMISTRY METHOD 08/26/2024 11:43 AM [facility] Glucose 88 70 - 100 mg/dL LAB CHEMISTRY METHOD 08/26/2024 11:43 AM [facility] BUN 29(H) 5 - 25 mg/dL LAB CHEMISTRY METHOD 08/26/2024 11:43 AM [facility] Creatinine 0.96 0.70 - 1.30 mg/dL LAB CHEMISTRY METHOD 08/26/2024 11:43 AM [facility] eGFR 83 >=60 mL/min/1. 73m2 LAB CHEMISTRY METHOD 08/26/2024 11:43 AM [facility] Comment:Calculation based on the??Chronic Kidney Disease Epidemiology Collaboration (CKD-EPI) equation refit??without adjustment for race. BUN/Creatinine Ratio 30.2 LAB CHEMISTRY METHOD 08/26/2024 11:43 AM [facility] Calcium 9.6 8.5 - 10.5 mg/dL LAB CHEMISTRY METHOD 08/26/2024 11:43 AM [facility] Blood Venous blood specimen / Unknown Venipuncture / Unknown 08/26/2024 9:33 AM EST 08/26/2024 9:33 AM EST us Anand Sanchez MD LAB BLOOD ORDERABLES Final Res ult [facility] [address] [place] [address], * Colonoscopy (10/13/2017) HM Colonoscopy abstracted,no interpretation Anatomical Region Laterality Modality Other us Historical Provider HEALTH MAINTENANCE Final Result from Last 3 Months or Most Recently Relevant to Health Maintenance Insurance [employer] - [place] MEDICARE ADVANTAGE Advance Directives Documents on File Type Date Recorded Patient Chemist Inorganic Expl anation Health Care Decision (hx) 04/08/2024 AD GRIMES DIRECTIVE Health Care Decision (hx) 04/08/2024 AD GRIMES DIRECTIVE Health Care Decision (hx) 11/16/2018 AD GRIMES DIRECTIVE Health Care Decision (hx) 11/16/2018 AD GRIMES DIRECTIVE Health Care Decision (hx) 11/16/2018 AD GRIMES DIRECTIVE Health Care Decision (hx) 11/16/2018 AD GRIMES DIRECTIVE Health Care Decision (hx) 11/16/2018 AD GRIMES DIRECTIVE Health Care Decision (hx) 11/16/2018 AD GRIMES DIRECTIVE Health Care Decision (hx) 11/16/2018 AD GRIMES DIRECTIVE Health Care Decision (hx) 11/16/2018 AD GRIMES DIRECTIVE Health Care Decision (hx) 11/16/2018 AD RGIMES DIRECTIVE Care Teams Lock Tender Chief Operator Relationship Specialty Start Date End Date Anand Sanchez MD [address] [place] [address] PCP - General Internal Medicine 06/05/15
--- OUTSIDE RECORDS SUMMARY | 2025-02-02 13:39 | XMS_ITS | Encounter Summary ---
Author Organization [facility] Address [address] [place] [address] Phone Care Team Providers Care Equipment Installer Name Role Phone Anand Sanchez MD Primary Care Provider Encounter Details Date Type Department Care Team (Late st Contact Info) Description 04/02/2023 Documentation Only [facility] [address] [place] [address] Anand Sanchez MD [address] [place] [address] Social History Tobacco Use Types Packs/Day Years Used Date Smoking Tobacco: Never Assessed Sex and Gender Information Value Date Recorded Sex Assigned at Not on file Legal Sex Male 10:04 AM EDT Gender Identity Not on file Sexual Orientation Not on file documented as of this encounter Plan of Treatment Upcoming Encounters Date Type Department Care Team (Late st Contact Info) Description 03/02/2025 1:30 PM EDT Office Visit [facility] [address] [place] [phone] Joellen Norton MD [address] [place] [address] [place] [phone] documented as of this encounter Visit Diagnoses Not on filedocumented in this encounter Care Teams Equipment Installer Relationship Specialty Start Date End [place] [address] PCP - General Internal Medicine 02/17/23 documented as of this encounter
--- OUTSIDE RECORDS SUMMARY | 2025-02-02 13:39 | XMS_ITS | Clinical Summary ---
Author Organization [facility] Address [address] [place] [address] Care Team Providers Care Netsuite Consultant Name Role Phone Anand Sanchez MD Primary Care Provider [phone] Allergies No known active allergies Medications Medication Sig Dispensed Refills Start Date End Date Status doxycycline (VIBRA-TABS) 100 MG tablet Take 1 tablet (100 mg total) by mouth 2 (two) times a day. 40 tablet 0 06/02/2018 Active rivaroxaban (Xarelto) 20 MG TABS tablet TAKE ONE TABLET BY MOUTH EVERY DAY 0 09/16/2022 Active atorvastatin (LIPITOR) tablet 20 mg TAKE ONE TABLET BY MOUTH EVERY DAY 0 09/16/2022 Active chlorthalidone (HYGROTON) 25 MG tablet 0 10/20/2022 Active finasteride (PROSCAR) 5 MG tablet Take 1 tablet (5 mg total) by mouth daily. 0 Active losartan (COZAAR) tablet 50 mg 0 10/31/2022 Active terazosin (HYTRIN) 5 MG capsule Take 1 capsule (5 mg total) by mouth. 0 Active Active Problems No known active problems Social History Tobacco Use Types Packs/Day Years Used Date Smoking Tobacco: Never Assessed Tobacco Cessation:Counseling Given: Not Answered Sex and Gender Information Value Date Recorded Sex Assigned at Not on file Gender Identity Not on file Sexual Orientation Not on file Job Start Date Occupation Industry Not on file Not on file Not on file Last Filed Vital Signs Vital Sign Reading Time Taken Comments Blood Pressure 158/50 11/08/2022 7:49 PM EST Pulse 51 11/08/2022 7:49 PM EST Temperature 36.7 ??C (98 ??F) 11/08/2022 7:49 PM EST Respiratory Rate 18 11/08/2022 7:49 PM EST Oxygen Saturation 100% 11/08/2022 7:49 PM EST Inhaled Oxygen Concentration - - Weight 77.1 kg (170 lb) 11/08/2022 7:49 PM EST Height 177.8 cm (5' 10 ) 11/08/2022 7:49 PM EST Body Mass Index 24.39 11/08/2022 7:49 PM EST Plan of Treatment Health Maintenance Due Date Last Done Comments Hepatitis C Screening 1949 Depression Screening 1961 Preventative Health Evaluation 1967 Colon Cancer Screening (Colonoscopy) 1994 Shingrix-Zoster Vaccine (1 o f 2) 1999 Fall Risk Assessment 2014 Pneumococcal Vaccine (1 of 1 - PCV) 2014 DTap / Tdap / Td (2 - Td or Tdap) 03/17/2021 03/17/2011 COVID-19 Vaccine (3 - 2023-2 5 season) 2024 11/29/2020, 11/07/2020 Influenza Vaccine (#1) 2024 RSV Adult > 60+ Yrs or (1 - 1-dose 75+ series) 2024 Hepatitis B Vaccines Aged Out No long er eligible based on patient's age to complete this topic RSV Ped < 20 months Aged Out No longe r eligible based on patient's age to complete this topic Care Teams Netsuite Consultant Relationship Specialty Start Date End Date Anand Sanchez MD PCP - General Internal Medicine 06/02/18
--- OUTSIDE RECORDS SUMMARY | 2025-02-02 13:39 | XMS_ITS | Encounter Summary ---
Author Organization [facility] Address [address] [place] [address] Phone Care Team Providers Care Director Search Marketing Strategies Name Role Phone Anand Sanchez MD Primary Care Provider [phone] Encounter Details Date Type Department Care Team (Late Contact Info) Description 02/26/2024 Documentation Only [facility] [address] [place] [address] Zora Machuca [address] [place] [phone] Social History Tobacco Use Types Packs/Day Years Used Date Smoking Tobacco: Never Smokeless Tobacco: Never Alcohol Use Standard Drinks/Week Comments Yes 10 (1 standard drink = 0.6 oz pu re alcohol) Sex and Gender Information Value Date Recorded Sex Assigned at Not on file Legal Sex Male 10:04 AM EDT Gender Identity Not on file Sexual Orientation Not on file documented as of this encounter Plan of Treatment Upcoming Encounters Date Type Department Care Team (Late st Contact Info) Description 03/02/2025 1:30 PM EDT Office Visit [facility] [address] [place] [address] Joellen Norton MD [address] [place] [address] [place] [phone] documented as of this encounter Visit Diagnoses Not on filedocumented in this encounter Care Teams Director Search Marketing Strategies Relationship Specialty Start Date End [place] [address] PCP - General Internal Medicine 02/17/23 documented as of this encounter
--- OUTSIDE RECORDS SUMMARY | 2025-02-02 13:39 | XMS_ITS | Encounter Summary ---
Author Organization [facility] Address [address] [place] [address] Phone Care Team Providers Care Corrections Specialist Name Role Phone Anand Sanchez MD Primary Care Provider [phone] Encounter Details Date Type Department Care Team (Late Contact Info) Description 02/26/2024 Documentation Only [facility] [address] [place] [address] Zora Machuca [address] [place] [phone] Social History Tobacco Use Types Packs/Day Years [...] Visit [facility] [address] [place] [address] Joellen Norton MD [address] [place] [address] [place] [phone] documented as of this encounter Visit Diagnoses Not on filedocumented in this encounter Care Teams Corrections Specialist Relationship Specialty Start Date End [place] [address] PCP - General Internal Medicine 02/17/23 documented as of this encounter
--- OUTSIDE RECORDS SUMMARY | 2025-02-02 13:39 | XMS_ITS | Clinical Summary ---
Author Organization [facility], Address [address] [place] [address] [place] [address] Phone Care Team Providers Care Integrated Logistics Programs Director Name Role Phone Anand Sanchez MD Primary Care Provider [phone] Allergies No known active allergies Medications amLODIPine (NORVASC) 5 MG tablet 03/16/2023 Active atorvastatin (LIPITOR) 20 MG tablet 03/15/2023 Active chlorthalidone 25 MG tablet 10/20/2022 Active finasteride (PROSCAR) 5 MG tablet 02/27/2023 Active Xarelto 20 MG tablet 03/15/2023 Active terazosin (HYTRIN) 5 MG capsule 03/06/2023 Active nitrofurantoin, macrocrystal-mo nohydrate, (Macrobid) 100 MG capsule Take 1 capsule (100 mg total) by mouth in the morning and 1 capsule (100 mg total) in the evening. 14 capsule 09/11/2023 Active Active Problems Problem Noted Date Diagnosed Date Atrial fibrillation 05/28/2023 Anemia 05/28/2023 Hyperlipidemia 05/28/2023 Hyponatremia Essential hypertension Immunizations Immunization Administration Dates Next Due Influenza, Unspecified 09/18/2023 Pfizer SARS-COV-2 11/29/2020,11/07/2020 Tdap 03/17/2011 Family History Medical History Relation Comments Alzheimer's disease Father Colon cancer Father Diabetes Father Heart failure Father Arthritis Mother Relation Status Comments Father Mother Social History Tobacco Use Types Packs/Day Years Used Date Smoking Tobacco: Never Smokeless Tobacco: Never Tobacco Cessation:Counseling Given: Not Answered Alcohol Use Standard Drinks/Week Comments Yes 10 (1 standard drink = 0.6 oz pu re alcohol) Sex and Gender Information Value Date Recorded Sex Assigned at Not on file Legal Sex Male 10:04 AM EDT Gender Identity Not on file Sexual Orientation Not on file Plan of Treatment Upcoming Encounters Date Type Department Care Team (Late st Contact Info) Description 03/02/2025 1:30 PM EDT Office Visit [facility] [place], [address] [place] [address] Joellen Norton MD [address] [place] [phone] Health Maintenance Due Date Last Done Comments Pneumococcal Vaccine: 50+ Ye ars (1 of 2 - PCV) 1968 Colorectal Cancer Screening: Annual FOBT 1998 Colorectal Cancer Screening: Colonoscopy 1998 Colorectal Cancer Screening: Sigmoidoscopy 1998 Influenza Vaccine (Season Ended) 2025 09/18/20 23 Hepatitis B Vaccine Aged Out No longe r eligible based on patient's age to complete this topic Insurance [facility] Kowalski([id number]) [facility] Care Teams Integrated Logistics Programs Director Relationship Specialty Start Date [place] [address] PCP - General Internal Medicine 02/17/23
--- OUTSIDE RECORDS SUMMARY | 2025-02-02 13:39 | XMS_ITS | Encounter Summary ---
Author Organization [facility] Address [address] [place] [address] Phone Care Team Providers Care Rn Orthopedic Name Role Phone Anand Sanchez MD Primary Care Provider [phone] Encounter Details Date Type Department Care Team (Late Contact Info) Description 02/26/2024 Documentation Only [facility] [address] [place] [address] Zora Machuca [address] [place] [phone] Social History Tobacco Use Types Packs/Day Years [...] Visit [facility] [address] [place] [address] Joellen Norton MD [address] [place] [address] [place] [phone] documented as of this encounter Visit Diagnoses Not on filedocumented in this encounter Care Teams Rn Orthopedic Relationship Specialty Start Date [place] [address] PCP - General Internal Medicine 02/17/23 documented as of this encounter
--- OUTSIDE RECORDS SUMMARY | 2025-02-02 13:39 | XMS_ITS | Encounter Summary ---
Author Organization [facility] Address [address] [place] [address] Phone Care Team Providers Care Copy Lathe Tender Name Role Phone Anand Sanchez MD Primary Care Provider [phone] Encounter Details Date Type Department Care Team (Late st Contact Info) Description 04/02/2023 Documentation Only [facility] [address] [place] [address] Anand Sanchez MD [address] [place] [address] Social History Tobacco Use Types Packs/Day Years [...] Visit [facility] [address] [place] [phone] Joellen Norton MD [address] [place] [address] [place] [phone] documented as of this encounter Visit Diagnoses Not on filedocumented in this encounter Care Teams Copy Lathe Tender Relationship Specialty Start Date [place] [address] PCP - General Internal Medicine 02/17/23 documented as of this encounter
--- OUTSIDE RECORDS SUMMARY | 2025-02-02 13:39 | XMS_ITS | Encounter Summary ---
Author Organization [facility] Address [address] [place] [address] Phone Care Team Providers Care Pipe And Tank Fabricator Name Role Phone Anand Sanchez MD Primary Care Provider [phone] Encounter Details Date Type Department Care Team (Late Contact Info) Description 02/26/2024 Documentation Only [facility] [address] [place] [address] Zora Machuca [address] [place] [phone] Social History Tobacco Use Types Packs/Day Years [...] [facility] [address] [place] [address] Joellen Norton MD [address] [place] [address] [place] [phone] documented as of this encounter Visit Diagnoses Not on filedocumented in this encounter Care Teams Pipe And Tank Fabricator Relationship Specialty Start Date End [place] [address] PCP - General Internal Medicine 02/17/23 documented as of this encounter
== END 2025-02-02 14:05 | disposition home or self-care (01) ==
LOC: HO.HUSH 13:05
PROVIDERS: PCP Internal Medicine; Visit Provider Urology
DX: N40.1 Benign prostatic hyperplasia with lower urinary tract symptoms (principal); R35.1 Nocturia; N13.8 Other obstructive and reflux uropathy
CPT/HCPCS: 99213

== ENCOUNTER → 2025-02-02 13:05 | Outpatient (BNVA) | payer MEDICARE, SELFPAY | PROVIDERS: PCP Internal Medicine; Visit Provider Urology ==

== ENCOUNTER 2025-08-02 09:24 | Outpatient (AMB) | payer MEDICARE, SELFPAY ==
--- OUTSIDE RECORDS SUMMARY | 2025-07-28 17:25 | XMS_ITS | Encounter Summary ---
Author Organization [facility] Address [address] [place] [address] Care Team Providers Care Family Member Caretaker Name Role Phone Anand Sanchez MD Primary Care Provider [phone] Encounter Details Date Type Department Care Team ([facility] st Contact Info) Description 07/28/2025 5:25 PM EST Ancillary Procedure [facility] [address] [facility] [address] [place] [address] Social History Tobacco Use Types Packs/Day Years Used Date Smoking Tobacco: Never Smokeless Tobacco: Never Alcohol Use Standard Drinks/Week Comments Yes 0 [...] for your loved ones. For example, child development instructor or elderly care for an older adult? [...] Date Recorded What is your living situation? Unrecognized valu e 08/26/2024 Interpersonal Safety Answer Date Record ed Physical Abuse Unrecognized value 02/06/2025 Verbal Abuse Unrecognized value 02/06/2025 Sex and Gender Information Value Date Recorded Sex Assigned at Male 07/26/2024 9:16 AM EST Legal Sex Male 6:38 AM EST Gender Identity Male 07/26/2024 9:16 AM EST Sexual Orientation Not on file documented as of this encounter Plan of Treatment Upcoming Encounters Date Type Department Care Team (Late st Contact Info) Description 09/04/2025 1:00 PM EST Office Visit [facility] Hematology Oncology [address] [place] [phone] Stacia Petersen, DO [address] [place] [address] documented as of this encounter Procedures Procedure Name Priority Date/Time Associated Diagnosis Comments CARDIAC DEVICE CHECK- REMOTE- MURJ Routine 07/28/2025 5:24 PM EST documented in this encounter Results * Cardiac device check - Remote- MURJ (07/28/2025 5:24 PM EST) Date Time Interrogation Session [id number] CV DEVICE CHECK Type Interrogation Session Remote CV DEVICE CHECK Implantable Pulse Generator Family Nurse MDT CV DEVICE CHECK Implantable Pulse Generator Type IPG CV DEVICE CHECK Implantable Pulse Generator Model [place] XT SR MRI [id number] CV DEVICE CHECK Implantable Pulse Generator Serial Number [id number] CV DEVICE CHECK Implantable Pulse Generator Implant Date 20230123 CV DEVICE CHECK Battery Remaining Longevity 120.0 CV DEVICE CHECK Battery Voltage 3.010 CV D EVICE CHECK Battery INVESTMENT BROKER Trigger 2.625 CV DEVICE CHECK Battery Status Middle of Service CV DEVICE CHECK Isaias Statistic RV Percent Paced 98.06 CV DEVICE CHECK Lead Channel Sensing Intrinsic Amplitude 21.000 CV DEVICE CHECK Lead Channel Setting Sensing Sensitivity 0.90 CV DEVICE CHECK Lead Channel Impedance Value 380 CV DEVICE CHECK Lead Channel Pacing Threshold Amplitude 0.750 CV DEVICE CHECK Lead Channel Pacing Threshold Pulse Width 0.4 CV DEVICE CHECK Lead Channel RV Pacing Threshold Date 2025-07-17 CV DEVICE CHECK Lead Channel Setting Pacing Amplitude 2.000 CV DEVICE CHECK Lead Channel Setting Pacing Pulse Width 0.4 CV DEVICE CHECK Isaias Setting Mode (NBG Code) VVIR CV DEVICE CHECK Isaias Setting Lower Rate Limit 60 CV DEVICE CHECK Isaias Setting Maximum Sensor Rate 130 CV DEVICE CHECK Zone Setting Type Category VT CV DEVICE CHECK Rate 150 CV DEVICE CHECK Zone Setting Status ENABLED CV DEVICE CHECK Zone ID 6 CV DEVICE CHECK Date of Service 2025-08-28 CV DEVICE CHECK Anatomical Region Laterality Modality Device Interroga tion 07/17/2025 10:1 4 PM EDT Impressions 07/28/2025 11:34 AM EST Normal Remote: No Events * Normal Device Function * Alerts or events: None * Battery: OK, 10.00 yrs * Sensing, impedance and thresholds reviewed * Programmed parameters reviewed * Presenting rhythm reviewed * Heart Rate Histograms reviewed * No significant changes noted Narrative Procedure Note Aleksander Newman MD - 07/28/2025 IMPRESSION: Normal Remote: No Events * Normal Device Function * Alerts or events: None * Battery: OK, 10.00 yrs * Sensing, impedance and thresholds reviewed * Programmed parameters reviewed * Presenting rhythm reviewed * Heart Rate Histograms reviewed * No significant changes noted Aleksander Newman MD CV IMPLANTABLE CARDIAC DEVICE PROCEDURES Final Result documented in this encounter Visit Diagnoses Not on filedocumented in this encounter Additional Health Concerns Assessment Noted Time PHQ-9 Depression Total Score: 0 04/18/20 25 3:22 PM EDT documented as of this encounter Care Teams Family Member Caretaker Relationship Specialty Start Date End Date Anand Sanchez MD [address] [place] [address] PCP - General Internal Medicine 06/05/15 documented as of this encounter
--- NOTE | 2025-08-02 09:31 | A.OFFVIS_ITS ---
Intake Visit Reasons: 6M PSA/PVR Intake Note: Patient Is Present for PSA/PVR Urology Med: None Antibiotic Allergy: None Blood Thinner: Rivaroxaban Last PVR: 0ML PVR: 50ml 07/19/2025- PSA- 11.6 FREE- 1.01 %FREE- 8.7 Software Clerk Required: No Accompanied by: Self / Same As Patient Allergies No Known Allergies Allergy (Verified 08/02/25 09:34) HPI Comments Details: Ken is a pleasant male. He is a patient of . Seen for the following urologic conditions - lower urinary tract symptoms Off finasteride PSA has jumped to 11.6 F 9% Had been as high as 5.8 in September 2017 Recommend prostate MRI Had increased his cycling volume to 70 miles a week 12/12 [employer] laser prostatectomy Prior conversation about cycling in [place] through the [employer] Lower Urinary Tract Symptoms: Current visit is for further evaluation of, lower urinary tract symptoms, predominate obstructive symptoms. Current treatment includes 07/07 , alpha elaine, terazosin 10/08 , alpha elaine, terazosin, 5-AR, finasteride. Prostate Symptom Score Moderate (9-19), Bother 2. Symptoms include 06/07 , incomplete emptying, weak stream, nocturia (>2), and are progressing 10/08 , incomplete emptying 400cc, weak stream, and are stable. Results from testing include cystoscopy Trilobar hypertrophy 07/07 Prior Prostate Score moderate. PSA 10/08 5.8 01/06 5.1, 04/07 4.0, 06/09 2.1, 02/08 1.8, 08/11 1.9, 07/14 4.2, 01/13 5.4 Prostate volume 30-50gm. Testing at next visit will include bladder scan [facility] Medical History (Updated 08/02/25 @ 10:08 by Neo Mcgraw MD) Hyperlipidemia Palpitations Elevated PSA Adenomatous colon polyp Psoriasis Anemia Atrial fibrillation HTN (hypertension) Bradycardia Murmur Dilated cardiomyopathy Post-traumatic osteoarthritis of right knee Ascending aorta dilatation Hyponatremia Nonrheumatic tricuspid valve regurgitation NSVT (nonsustained ventricular tachycardia) Hx of cardiac pacemaker On anticoagulant therapy Secondary hypercoagulability disorder Mitral regurgitation Pyuria H/O urinary retention Incomplete emptying of bladder Surgical History History of permanent cardiac pacemaker placement History of total left knee replacement History of surgery Social History Patient Tobacco Use Status: Never used Tobacco Review of Systems Const Denies chills and Denies fever(s) Card Reports no additional complaints and Denies syncope Resp Denies cough GI Denies abdominal pain and Denies heartburn Reports as per HPI and Denies change in libido Neuro Denies syncope Psych Denies change in libido Endo Denies change in libido Physical Exam Const General: cooperative, healthy appearing, comfortable and no acute distress Orientation/consciousness: patient oriented x3 HEENT Face and sinus: Yes normal facial exam Mouth: moist mucous membranes Neck Neck: Yes normal visual inspection, Yes full ROM and Yes trachea midline Chest Chest palpation & inspection: normal inspection of the chest Resp Effort & Inspection: normal respiratory effort, able to speak in complete sentences and no respiratory distress GI Inspection: Yes normal to inspection Back/Spine/Pelvis Cervical Spine: normal cervical lordosis Thoracic/Lumbar Spine: thoracic and lumbar spine normal to inspection Skin General skin exam: no rashes or lesions noted Neuro General: patient oriented x3, gait normal, tone normal and moves all extremities Extrem General: Yes normal to inspection and Yes capillary refill normal Office Procedures Post Void Residual Post Residual Void Post Void Residual (PVR): 50 [id number] Void Residual by ultrasound Assessment & Plan Assessment & Plan (1) Elevated PSA: Code(s): R97.20 - Elevated prostate specific antigen [PSA] Category: Medical Plan Prostate MRI Four week follow-up Orders: Orders MR Prostate wo/w con Today R97.20 - Elevated prostate specific antigen [PSA] AMB Post Void Residual by ultrasound Today N13.8 - Other obstructive and reflux uropathy, N40.1 - Benign prostatic hyperplasia with lower urinary tract symptoms Patient Instructions: This note is constructed using voice recognition software. While every effort has been made to ensure accuracy precision lens technician errors may have been included. Imaging studies, laboratory and physical exam results were discussed and reviewed in detail. No major barriers to patient understanding were identified. An opportunity to ask questions regarding the treatment plan was provided. All questions were answered. The patient expressed understanding and agreement with the above treatment plan. The patient is aware they should contact our office by phone for worsening of their current condition or the appearance of new urologic symptoms. Compliance is encouraged with any medications and followup testing that is ordered. It is a privilege to participate in the urologic care of your patient. If you have any questions or concerns regarding treatment for the above conditions, or other urologic issues, please do not hesitate to contact me. The office telephone contact is [phone]. Sincerely, Dr Neo Mcgraw MD, [facility] - Urology Compassionate Specialist Care for the Genitourinary System Coding Level of Care Code Est Pt Level 3 (11533) Complex EM visit Add On G2211 Diagnoses Elevated PSA R97.20 CPT Codes Post Residual Void - PVR CPT Code: 76602-Brht Void Residual by ultrasound ([id number])
--- OUTSIDE RECORDS SUMMARY | 2025-08-02 10:21 | XMS_ITS | Clinical Summary ---
Author Organization [facility] Address [address] [place] [address] Care Team Providers Care Lead Based Paint Technician Name Role Phone Anand Sanchez MD Primary Care Provider [phone] Allergies No known active allergies Medications Medication [...] 51 11/08/2022 7:49 PM EST Temperature 36.7 C (98 F) 11/08/2022 7:49 PM EST Respiratory Rate 18 [...] (2 - Td or Tdap) 03/17/2021 03/17/2011 RSV Adult > 60+ Yrs or (1 - 1-dose 75+ series) 2024 COVID-19 Vaccine (3 - 2024-2 6 season) 2025 11/29/2020, 11/07/2020 Influenza Vaccine (#1) 2025 Hepatitis B Vaccines Aged Out No long er eligible based on patient's age to complete this topic RSV Ped < 20 months Aged Out No longe r eligible based on patient's age to complete this topic Care Teams Lead Based Paint Technician Relationship Specialty Start Date End Date Anand Sanchez MD PCP - General Internal Medicine 06/02/18
--- OUTSIDE RECORDS SUMMARY | 2025-08-02 10:21 | XMS_ITS | Encounter Summary ---
Author Organization [facility], Address [address] [place] [address] Phone Care Team Providers Care Local Company Hazmat Driver Name Role Phone Anand Sanchez MD Primary Care Provider [phone] Encounter Details Date Type Department Care Team (Late st Contact Info) Description 02/26/2024 Documentation Only [facility], [address] [place] [address] Zora Machuca [address] [place] [phone] Social History Tobacco Use Types Packs/Day Years [...] as of this encounter Plan of Treatment Not on file documented as of this encounter Visit Diagnoses Not on filedocumented in this encounter Care Teams Local Company Hazmat Driver Relationship Specialty Start Date End [place] [address] PCP - General Internal Medicine 02/17/23 documented as of this encounter
--- OUTSIDE RECORDS SUMMARY | 2025-08-02 10:21 | XMS_ITS | Encounter Summary ---
Author Organization [facility], Address [address] [place] [address] Phone Care Team Providers Care Business Asst Name Role Phone Anand Sanchez MD Primary Care Provider [phone] Encounter Details Date Type Department Care Team (Late st Contact Info) Description 02/26/2024 Documentation Only [facility], [address] [place] [address] Zora Machuca [address] [place] [phone] Social History Tobacco Use Types Packs/Day Years [...] on filedocumented in this encounter Care Teams Business Asst Relationship Specialty Start Date [place] [address] PCP - General Internal Medicine 02/17/23 documented as of this encounter
--- OUTSIDE RECORDS SUMMARY | 2025-08-02 10:21 | XMS_ITS | Encounter Summary ---
Author Organization [facility], Address [address] [place] [address] Phone Care Team Providers Care Chicken Sexer Name Role Phone Anand Sanchez MD Primary Care Provider [phone] Encounter Details Date Type Department Care Team (Late st Contact Info) Description 02/26/2024 Documentation Only [facility], [address] [place] [address] Zora Machuca [address] [place] [phone] Social History Tobacco Use Types Packs/Day Years [...] on filedocumented in this encounter Care Teams Chicken Sexer Relationship Specialty Start Date [place] [address] PCP - General Internal Medicine 02/17/23 documented as of this encounter
--- OUTSIDE RECORDS SUMMARY | 2025-08-02 10:21 | XMS_ITS | Encounter Summary ---
Author Organization [facility], Address [address] [place] [address] Phone Care Team Providers Care Graphics Artist Name Role Phone Anand Sanchez MD Primary Care Provider [phone] Encounter Details Date Type Department Care Team (Late st Contact Info) Description 04/02/2023 Documentation Only [facility], [address] [place] [address] Anand Sanchez MD [address] [place] [address] Social History Tobacco Use Types Packs/Day Years [...] on filedocumented in this encounter Care Teams Graphics Artist Relationship Specialty Start Date [place] [address] PCP - General Internal Medicine 02/17/23 documented as of this encounter
--- OUTSIDE RECORDS SUMMARY | 2025-08-02 10:21 | XMS_ITS | Encounter Summary ---
Author Organization [facility] [place], Address [address] [place] [address] Phone Care Team Providers Care Tool And Die Maker Name Role Phone Anand Sanchez MD Primary Care Provider [phone] Encounter Details Date Type Department Care Team (Late st Contact Info) Description 04/02/2023 Documentation Only [facility], [address] [place] [address] Anand Sanchez MD [address] [place] [address] Social History Tobacco Use Types Packs/Day Years [...] on filedocumented in this encounter Care Teams Tool And Die Maker Relationship Specialty Start Date [place] [address] PCP - General Internal Medicine 02/17/23 documented as of this encounter
--- OUTSIDE RECORDS SUMMARY | 2025-08-02 10:21 | XMS_ITS | Encounter Summary ---
Author Organization [facility], Address [address] [place] [address] Phone Care Team Providers Care Filling Operator Name Role Phone Anand Sanchez MD Primary Care Provider [phone] Encounter Details Date Type Department Care Team (Late st Contact Info) Description 02/26/2024 Documentation Only [facility], [address] [place] [place] [address] Zora Machuca [address] [place] [phone] Social History Tobacco Use Types Packs/Day Years [...] on filedocumented in this encounter Care Teams Filling Operator Relationship Specialty Start Date End [place] [address] PCP - General Internal Medicine 02/17/23 documented as of this encounter
--- OUTSIDE RECORDS SUMMARY | 2025-08-02 10:21 | XMS_ITS | Clinical Summary ---
Author Organization [address] [place] [address] [place] [address] Phone Care Team Providers Care Organizational Development Specialist Name Role Phone Anand Sanchez MD Primary Care Provider [phone] Allergies Active Allergy Reactions Criticality Noted Date Comments Pczunancgyyqhds-Su-Hjmmcq nesin 06/25/2015 Urinary retention with nasal sprays Medications ibuprofen (ADVIL,MOTRIN) 400 mg tablet Take 1 tablet (400 mg total) by mouth every 6 (six) hours if needed. Active fluticasone propionate (FLONASE) 50 mcg/actuation nasal spray 8 Active clobetasoL (TEMOVATE) 0.05 % cream Apply topically 2 times daily. Active cycloSPORINE (Restasis MultiDose) 0.05 % drops 2 Active ketoconazole (NIZORAL) 2 % cream 5 Active Xarelto 20 mg tablet TAKE 1 TABLET BY MOUTH ONCE A DAY 90 tablet 1 5 Active finasteride (PROSCAR) 5 mg tablet Take 1 tablet (5 mg total) by mouth 1 (one) time each day. Do not crush, chew, or split. Active atorvastatin (LIPITOR) 20 mg tablet TAKE ONE TABLET BY MOUTH EVERY DAY 90 tablet 1 5 Active amLODIPine (NORVASC) 5 mg tablet TAKE ONE TABLET BY MOUTH ONE TIME EACH DAY. 90 tablet 1 5 Active Active Problems Problem Noted Date Diagnosed Date Status post total bilateral knee replacement 11/2024 Lumbar spondylosis 03/23/2025 Scoliosis of lumbar region d ue to degenerative disease of spine in adult 03/23/2025 Nocturnal leg cramps 02/19/2024 Overview (07/18/2024): Last [...] after our visit. We will await results. SHAQVT (nonsustained ventricul ar tachycardia) ([facility] V24, [facility] V28) 11/24/2023 Overview (07/18/2024): Last Assessment & Plan: 6 beat run noted in September 2023; no new alerts received. Will continue to monitor device per device clinic protocol. Assessment & Plan (10/18/2024 8:05 AM EST): No recent episodes noted on most recent device check from 08/2024; we will continue to monitor his device for further episodes. Secondary hypercoagulability disorder ([facility] V 24) 11/24/2023 Nonrheumatic tricuspid valve regurgitation 09/30 Overview (07/18/2024): Last Assessment & Plan: Mild tricuspid regurgitation noted on most recent echocardiogram 02/12/2024; he offers no symptoms concerning for worsening valvular dysfunction. We will continue to monitor with serial imaging. Ascending aorta dilation ([facility] V24) Overview (07/18/2024): Last Assessment & Plan: [...] Caitlyn Campos[facility] Dilated cardiomyopathy ([facility] V24, [facility] V28 ) 10/31/2022 Overview (07/18/2024): Last Assessment [...] 06/25/2015 Psoriasis 06/25/2015 Overview (07/18/2024): UVB therapy [facility] 2014 / Humira in past Resolved Problems Problem Noted Date Diagnosed Date Resolved Date Post-traumatic osteoarthritis of right knee 05/07/2023 03/23/2025 Encounters Date Type Department Care Team Description 07/28/2025 5:25 PM EST Ancillary Procedure [facility] Card[facility] [address] [facility] [address] [place] [address] 07/13/2025 Results Follow-Up Internal [facility] - [facility] [address] [place] [address] Lizet Hurtado [place] 06/27/2025 2:15 PM EDT Ancillary Procedure [facility] [address] [facility] [address] [place] [address] 05/29/2025 10:05 AM EDT Ancillary Procedure [facility] - [facility] [address] [facility] [address] [place] [address] from Last 3 Months Immunizations Immunization Administration Dates Next Due Tdap Tetanus diptheria [...] Palpitations 06/25/2015 DX:Palpitations Hyperlipidemia 06/25/2015 DX:Hyperlipidemi a Pacemaker Family History Medical History Relation Name Comments [...] care for your loved ones. For example, early childhood specialist or elderly care for an older adult? [...] Sign Reading Time Taken Comments Blood Pressure 130/64 04/25/2025 7:55 AM EDT Pulse 64 04/25/2025 7:55 AM EDT Temperature 36.4 C (97.6 F) 02/06/2025 11:19 AM EDT Respiratory Rate 16 02/06/2025 11:39 AM EDT Oxygen Saturation 99% 04/12/2025 8:40 AM EDT Inhaled Oxygen Concentration - - Weight 80.3 kg (177 lb) 04/25/2025 7:55 AM EDT Height 177.8 cm (5' 10 ) 04/25/2025 7:55 AM EDT Body Mass Index 25.4 04/25/2025 7:55 AM EDT Plan of Treatment Upcoming Encounters Date Type Department Care Team (Late st Contact Info) Description 09/04/2025 1:00 PM EST Office Visit [facility] [address] [place] [address] Stacia Petersen, DO [address] [place] [address] Health Maintenance Due Date Last Done Comments Pneumococcal Vaccine: 50+ Years (1 of 1 - PCV) 1999 Zoster Vaccines (1 of 2) 1999 DTaP,Tdap,and Td Vaccines (2 - Td or Tdap) 03/17/2021 03/17/2011 Hepatitis C Screening 08/30/2022 Colorectal Cancer Screening: CT Colonography 07/18/2024 RSV Immunization Adult Patients (1 - 1-dose 75+ series) 2024 Medicare Annual Wellness Visit 08/26/2025 08/26/2024 Social Influencers of Health Screening 08/26/2025 08/26/2024 COVID-19 Vaccine ( season) 2026 07/18/2025, 06/20/2024, 06/24/2023, Additional history exists Falls Risk Assessment 02/06/2026 02/06/2025 Hypertension/CHF/CAD Annual BMP Blood Test 04/26/2026 04/26/2025, 08/26/2024, 05/25/2024, Additional history exists Cholesterol Screening (Lipid Panel) 08/26/2029 08/26/2024, 03/07/2024, 03/07/2024 Colorectal Cancer Screening: Colonoscopy 02/06/2030 02/06/2025, 10/13/2017, 10/13/2017 Colorectal Cancer Screening: FIT-DNA (Cologuard) Discontinued 07/05/2024, 07/05/2024 Depression Screening Completed 04/18/2025 Influenza Vaccine Completed 07/18/2025, , 09/18/2023, Additional history exists HIB Vaccines Aged Out [...] this topic Medical Devices Implanted Type Area Sweat Band Separator Device Identifier Shelf Expiration Date Model / Serial / Lot Medt-Card Rajeev Xt Sr Mri [id number] Implanted:01/2023 (Quantity not on file) Cardiac Pacemaker [employer] - CARDIAC RHYTH-CRDM RAJEEV XT SR MRI [id number] / [id number] / Medt-Card Grove Xt Sr Mri [id number] Implanted:01/2023 (Quantity not on file) Cardiac Pacemaker [employer] - CARDIAC RHYTH-CRDM RAJEEV XT SR MRI / [id number] / Procedures Procedure Name Priority Date/Time Associated Diagnosis Comments CARDIAC DEVICE CHECK- REMOTE- MURJ Routine 07/28/2025 5:24 PM EST CARDIAC DEVICE CHECK- REMOTE- MURJ Routine 06/27/2025 2:11 PM EDT CARDIAC DEVICE CHECK- REMOTE- MURJ Routine 05/29/2025 10:01 AM EDT BASIC METABOLIC PANEL Routine 04/26/2025 2:57 PM EDT COLONOSCOPY Routine 02/06/2025 11:18 AM EDT Hx of colonic polyp LIPID PANEL WITH REFLEX TO DIRECT LDL Routine 08/26/2024 9:33 AM EST Pure hypercholesterolemia from Last 3 Months or Most Recently Relevant to Health Maintenance Results * Cardiac device check - Remote- MURJ (07/28/2025 5:24 PM EST) Only the most recent of3 resultswithin the time period is included. Date Time Interrogation Session [id number] CV DEVICE CHECK Type Interrogation Session Remote CV DEVICE CHECK Implantable Pulse Generator Sweat Band Separator MDT CV DEVICE CHECK Implantable Pulse Generator Type IPG CV DEVICE CHECK Implantable Pulse Generator Model Grove XT SR MRI [id number] CV DEVICE CHECK Implantable Pulse Generator Serial Number [id number] CV DEVICE CHECK Implantable Pulse Generator Implant Date 20230123 CV DEVICE CHECK Battery Remaining Longevity 120.0 CV DEVICE CHECK Battery Voltage 3.010 CV D EVICE CHECK Battery FOOD PRODUCT INSPECTOR Trigger 2.625 CV DEVICE CHECK Battery Status [...] Histograms reviewed * No significant changes noted us Aleksander Newman MD CV IMPLANTABLE CARDIAC DEVICE PROCEDURES Final Result * Basic metabolic panel (04/26/2025 2:57 PM EDT) Blood Venous blood specimen / Unknown us Anand Sanchez MD LAB BLOOD ORDERABLES Final Res ult * COLONOSCOPY Anesthesia - MAC; [facility] ENDOSCOPY (02/06/2025 11:18 AM EDT) Anatomical Region Laterality Modality Endoscopy 02/06/2025 10:5 6 AM EDT Impressions 02/06/2025 11:19 AM EDT - Diverticulosis in the left colon. - The examination was otherwise normal on direct and retroflexion views. - No specimens collected. Recommendation: - Patient has a contact number available for emergencies. The signs and symptoms of potential delayed complications were discussed with the patient. Return to normal activities tomorrow. Written discharge instructions were provided to the patient. - Resume previous diet. - Continue present medications. Narrative 02/06/2025 11:19 AM EDT [facility] Patient Name: Ken Brothers Procedure Date: 02/06/2025 10:56 AM Date of : 1950 Age: 74 Room: ROOM 17 Gender: Male Note Status: Finalized Attending MD: Jose Armando Prasad MD, Procedure Date No Time: 02/06/2025 Procedure: Colonoscopy Indications: Screening for colorectal malignant neoplasm Providers: Jose Armando Prasad MD Referring MD: Aishwarya Nuñez MD Medicines: Monitored Anesthesia Care Complications: No immediate complications. Estimated Blood Loss: Estimated blood loss: none. Procedure: After I obtained informed consent, the scope was passed under direct vision. Throughout the procedure, the patient's blood pressure, pulse, and oxygen saturations were monitored continuously. The Olympus Pediatric Colonoscope was introduced through the anus and advanced to the cecum, identified by appendiceal orifice and ileocecal valve. The colonoscopy was performed without difficulty. The patient tolerated the procedure well. The quality of the bowel preparation was adequate. Findings: A few medium-mouthed diverticula were found in the left colon. The exam was otherwise without abnormality on direct and retroflexion views. Procedure Code(s): --- Professional --- G0121, Colorectal cancer screening; colonoscopy on individual not meeting criteria for high risk Diagnosis Code(s): --- Professional --- K57.30, Diverticulosis of large intestine without perforation or abscess without bleeding Z12.11, Encounter for screening for malignant neoplasm of colon CPT copyright 2020 [employer] [place] [employer]. All rights reserved. The codes documented in this report are preliminary and upon planisher review may be revised to meet current compliance requirements. MD Jose Armando Trejo MD 02/06/2025 11:19:43 AM This report has been signed electronically.Jose Armando Prasad MD Number of Addenda: 0 Note Initiated On: 02/06/2025 10:56 AM Scope In: Scope Out: Endoscopy Department at [facility] - [address] [place] [phone] Procedure Note Jose Armando Prasad MD - 02/06/2025 [facility] Patient Name: Ken Brothers Procedure Date: 02/06/2025 10:56 AM Date of : 1950 Age: 74 Room: ROOM 17 Gender: Male Note Status: Finalized Attending MD: Jose Armando Prasad MD, Procedure Date No Time: 02/06/2025 Procedure: Colonoscopy Indications: Screening for colorectal malignant neoplasm Providers: Jose Armando Prasad MD Referring MD: Aishwarya Nuñez MD Medicines: Monitored Anesthesia Care Complications: No immediate complications. Estimated Blood Loss: Estimated blood loss: none. Procedure: After I obtained informed consent, the scope was passed under direct vision. Throughout theprocedure, the patient's blood pressure, pulse, and oxygen saturations were monitored continuously. TheOlympus Pediatric Colonoscope was introduced through theanus and advanced to the cecum, identified byappendiceal orifice and ileocecal valve. The colonoscopy was performed without difficulty. The patient tolerated the procedure well. The quality of the bowel preparation was adequate. Findings: A few medium-mouthed diverticula were found in the left colon. The exam was otherwise without abnormality ondirect and retroflexion views. Procedure Code(s): --- Professional --- G0121, Colorectal cancer screening; colonoscopy on individual not meeting criteria for high risk Diagnosis Code(s): --- Professional --- K57.30, Diverticulosis of large intestine without perforation or abscess without bleeding Z12.11, Encounter for screening for malignantneoplasm of colon CPT copyright 2020 [employer] [place] [employer]. All rights reserved. The codes documented in this report are preliminary and upon planisher reviewmay be revised to meet current compliance requirements. MD Jose Armando Trejo MD 02/06/2025 11:19:43 AM This report has been signed electronically.Jose Armando Prasad MD Number of Addenda: 0 Note Initiated On: 02/06/2025 10:56 AM Scope In: Scope Out: Endoscopy Department at [facility] - [address] [place] [phone] IMPRESSION: - Diverticulosis in the left colon. - The examination was otherwise normal on directand retroflexion views. - No specimens collected. Recommendation: - Patient has a contact number available for emergencies. The signs and symptoms of potential delayed complications were discussed with thepatient. Return to normal activities tomorrow. Written discharge instructions were provided to thepatient. - Resume previous diet. - Continue present medications. us Aishwarya Nuñez MD GI~PROCEDURE ORDERABLES Fin al Result * Lipid panel with reflex to direct LDL (08/26/2024 9:33 AM EST) Cholesterol 140 0 - 200 mg/dL LAB CHEMISTRY METHOD 08/26/2024 11:48 AM EST [facility] Triglycerides 22 0 - 150 mg/dL LAB CHEMISTRY METHOD 08/26/2024 11:48 AM EST [facility] HDL 79 >=40 mg/dL LAB CHEMISTRY METHOD 08/26/2024 11:48 AM EST [facility] LDL Calculated 57 0 - 100 mg/dL LAB CHEMISTRY METHOD 08/26/2024 11:48 AM [facility] VLDL Cholesterol Trev 4.4 mg/dL LAB CHEMISTRY METHOD 08/26/2024 11:48 AM [facility] Non HDL Chol. (LDL+VLDL) 61 <145 mg/dL LAB CHEMISTRY METHOD 08/26/2024 11:48 AM EST [facility] Chol/HDL Ratio 1.8 0.0 - 4.4 LAB CHEMISTRY METHOD 08/26/2024 11:48 AM [facility] Blood Venous blood specimen / Unknown Venipuncture / Unknown 08/26/2024 9:33 AM EST 08/26/2024 9:33 AM EST us Anand Sanchez MD LAB BLOOD ORDERABLES Final Res ult [facility] [address] [place] [address], [place] [phone] from Last 3 Months or Most Recently Relevant to [place] [phone] [employer] - [place] MEDICARE AD[place]ANTAGE Advance Directives Documents on File Type Date Recorded Patient Pound Attendant Expl anation Advance Directives and Living Will 02/08/2025 2:40 PM DNR Health Care Decision (hx) 04/08/2024 AD GRIMES [...] Care Decision (hx) 11/16/2018 AD GRIMES DIRECTIVE Care Teams Organizational Development Specialist Relationship Specialty Start Date End Date Anand Sanchez MD [address] [place] [id number] PCP - General Internal Medicine 06/05/15
--- OUTSIDE RECORDS SUMMARY | 2025-08-02 10:21 | XMS_ITS | Encounter Summary ---
Author Organization [facility] Address [address] [place] [address] Care Team Providers Care Bid Writer Name Role Phone Anand Sanchez MD Primary Care Provider [phone] Encounter Details Date Type Department Care Team (Late st Contact Info) Description 07/13/2025 Results Follow-Up [facility] - [facility] [address] [place] [id number] Lizet Hurtado MA Social History Tobacco Use Types Packs/Day Years [...] care for your loved ones. For example, teacher early childhood development or elderly care for an older adult? [...] 1:00 PM EST Office Visit [facility] [address] [place] [phone] Stacia Petersen, DO [address] [place] [address] documented as of this encounter Visit Diagnoses Not on filedocumented in this encounter Additional Health Concerns Assessment Noted Time PHQ-9 Depression Total Score: 0 04/18/20 25 3:22 PM EDT documented as of this encounter Care Teams Bid Writer Relationship Specialty Start Date End Date Anand Sanchez MD [address] [place] [address] PCP - General Internal Medicine 06/05/15 documented as of this encounter
--- OUTSIDE RECORDS SUMMARY | 2025-08-02 10:22 | XMS_ITS | Clinical Summary ---
Author Organization [facility], Address [address] [place] [address] [place] [address] Phone Care Team Providers Care Project Management Instructor Name Role Phone Anand Sanchez MD Primary Care Provider [phone] Allergies No known active allergies Medications amLODIPine [...] Orientation Not on file Plan of Treatment Health Maintenance Due Date Last Done Comments Pneumococcal Vaccine: 50+ Ye ars (1 of 2 - PCV) 1968 Colorectal Cancer Screening: Annual FOBT 1998 Colorectal Cancer Screening: Colonoscopy 1998 Colorectal Cancer Screening: Sigmoidoscopy 1998 Influenza Vaccine (#1) 2025 09/18/2023 Hepatitis B Vaccine Aged Out No longe r eligible based on patient's age to complete this topic Insurance [facility] PPO Blue([id number]) [facility] Care Teams Project Management Instructor Relationship Specialty Start Date End [place] [address] PCP - General Internal Medicine 02/17/23
== END 2025-08-02 10:13 | disposition home or self-care (01) ==
LOC: HO.HUSH 09:25
PROVIDERS: PCP Internal Medicine; Visit Provider Urology
DX: R97.20 Elevated prostate specific antigen [PSA] (principal)
CPT/HCPCS: 99213; G2211

== ENCOUNTER → 2025-08-02 09:24 | Outpatient (BNVA) | payer MEDICARE, SELFPAY | PROVIDERS: PCP Internal Medicine; Visit Provider Urology | DX: R97.20 Elevated prostate specific antigen [PSA] (principal); N40.1 Benign prostatic hyperplasia with lower urinary tract symptoms; N13.8 Other obstructive and reflux uropathy | CPT/HCPCS: 51798; 99212 ==

== ENCOUNTER → 2025-08-24 08:34 | Outpatient (BNV) | payer MEDICARE, SELFPAY | PROVIDERS: PCP Internal Medicine; Visit Provider Radiology Diagnostic Radiology | DX: R97.20 Elevated prostate specific antigen [PSA] (principal) | CPT/HCPCS: 72197; 76377 ==

== ENCOUNTER 2025-08-24 09:00 | Outpatient (REF) | payer MEDICARE, SELFPAY ==
--- NOTE | ~2025-08-24 | MR_ITS ---
EXAMINATION: MR PROSTATE WITHOUT THEN WITH IV CONTRAST, MR EXAM UNLISTED HISTORY: R97.20 - Elevated prostate specific antigen [PSA] TECHNIQUE: 1.5T body coil survey of the pelvis was performed. Phase array coil imaging of the prostate was performed in multiplanar high resolution axial, coronal, sagittal fast spin echo T2 and axial T1 weighted imaging sequences. Axial diffusion imaging at intermediate and high field performed with ADC mapping. Next, 8 mL Gadavist was given by intravenous infusion, and dynamic axial imaging performed. 3-D reconstructions and post-processing were performed on an independent workstation by the radiologist for biopsy planning using image fusion. COMPARISON: There are no prior studies available for comparison. CLINICAL DATA: Most recent PSA: 10.6 ng/mL on 08/14/2025. PSA Density: 0.40 ng/mL squared Prostate Biopsy: None reported FINDINGS: Prostate size: 4.3 x 4.2 x 2.8 cm. Calculated prostate volume is 26.3 mL. Hemorrhage: None. Transitional Zone: The patient is status post TURP. There is mild heterogeneous nodular hypertrophy of the transitional zone. Peripheral Zone: There is an area of interest in the peripheral zone as described below: Area of interest #1: Location: Posterior peripheral zone bilaterally, although greater on the left extending from the base to the apex measuring at least 2.5 x 1.2 cm. DWI PI-RADS v2.1 score: 5 T2 PI-RADS v2.1 score: 5 DCE PI-RADS v2.1 score: + Overall PI-RADS v2.1 score: 5 Capsular contact: yes Extracapsular extension: There is spiculation of the posterior capsule with lack of a fat plane between the lesion and the rectum, highly suspicious for extracapsular extension. Seminal vesicle invasion: None Neurovascular bundle involvement: No definite Seminal Vesicles/Ejaculatory Ducts: Symmetric and normal in signal and caliber. Pelvic Lymph Nodes: No obturator or internal iliac lymph nodes meeting size criteria for adenopathy. Marrow Signal: There is a subcentimeter hypointense focus in the left inferior pubic ramus which could represent a metastatic deposit (series 4, image 34). MR/MR Prostate wo/w con IMPRESSION: Lesion in the posterior peripheral zone bilaterally, highly suspicious for clinically significant prostate carcinoma. There is spiculation of the posterior capsule, suspicious for extracapsular extension. There is a possible metastatic deposit in the left inferior pubic ramus. PI-RADS 5: Very high (clinically significant cancer is highly likely to be present) PI-RADS Assessment Categories PI-RADS 1: Very low (clinically significant cancer is highly unlikely to be present) PI-RADS 2: Low (clinically significant cancer is unlikely to be present) PI-RADS 3: Intermediate (the presence of clinically significant cancer is equivocal) PI-RADS 4: High (clinically significant cancer is likely to be present) PI-RADS 5: Very high (clinically significant cancer is highly likely to be present) [employer]. MR Prostate Imaging Reporting and Data System version 2.1. [email or web address]/Quality-[email or web address]/ Electronically signed by: Bret Washington MD 08/24/2025 10:51 AM [facility] BARNES
--- NOTE | ~2025-08-24 | MR_ITS ---
EXAMINATION: MR PROSTATE WITHOUT THEN WITH IV CONTRAST, MR EXAM UNLISTED HISTORY: R97.20 - Elevated prostate specific antigen [PSA] TECHNIQUE: 1.5T body coil survey of the pelvis was performed. Phase array coil imaging of the prostate was performed in multiplanar high resolution axial, coronal, sagittal fast spin echo T2 and axial T1 weighted imaging sequences. Axial diffusion imaging at intermediate and high field performed with ADC mapping. Next, 8 mL Gadavist was given by intravenous infusion, and dynamic axial imaging performed. 3-D reconstructions and post-processing were performed on an independent workstation by the radiologist for biopsy planning using image fusion. COMPARISON: There are no prior studies available for comparison. CLINICAL DATA: Most recent PSA: 10.6 ng/mL on 08/14/2025. PSA Density: 0.40 ng/mL squared Prostate Biopsy: None reported FINDINGS: Prostate size: 4.3 x 4.2 x 2.8 cm. Calculated prostate volume is 26.3 mL. Hemorrhage: None. Transitional Zone: The patient is status post TURP. There is mild heterogeneous nodular hypertrophy of the transitional zone. Peripheral Zone: There is an area of interest in the peripheral zone as described below: Area of interest #1: Location: Posterior peripheral zone bilaterally, although greater on the left extending from the base to the apex measuring at least 2.5 x 1.2 cm. DWI PI-RADS v2.1 score: 5 T2 PI-RADS v2.1 score: 5 DCE PI-RADS v2.1 score: + Overall PI-RADS v2.1 score: 5 Capsular contact: yes Extracapsular extension: There is spiculation of the posterior capsule with lack of a fat plane between the lesion and the rectum, highly suspicious for extracapsular extension. Seminal vesicle invasion: None Neurovascular bundle involvement: No definite Seminal Vesicles/Ejaculatory Ducts: Symmetric and normal in signal and caliber. Pelvic Lymph Nodes: No obturator or internal iliac lymph nodes meeting size criteria for adenopathy. Marrow Signal: There is a subcentimeter hypointense focus in the left inferior pubic ramus which could represent a metastatic deposit (series 4, image 34). MR/MR CAD IMPRESSION: Lesion in the posterior peripheral zone bilaterally, highly suspicious for clinically significant prostate carcinoma. There is spiculation of the posterior capsule, suspicious for extracapsular extension. There is a possible metastatic deposit in the left inferior pubic ramus. PI-RADS 5: Very high (clinically significant cancer is highly likely to be present) PI-RADS Assessment Categories PI-RADS 1: Very low (clinically significant cancer is highly unlikely to be present) PI-RADS 2: Low (clinically significant cancer is unlikely to be present) PI-RADS 3: Intermediate (the presence of clinically significant cancer is equivocal) PI-RADS 4: High (clinically significant cancer is likely to be present) PI-RADS 5: Very high (clinically significant cancer is highly likely to be present) [employer]. MR Prostate Imaging Reporting and Data System version 2.1. [email or web address]/Quality-[email or web address]/ Electronically signed by: Bret Washington MD 08/24/2025 10:51 AM DUDLEY
--- OUTSIDE RECORDS SUMMARY | 2025-08-24 09:46 | XMS_ITS | Clinical Summary ---
Author Organization [address] [place] [address] [place] [phone] Phone Care Team Providers Care International Editorial Producer Name Role Phone Anand Sanchez MD Primary Care Provider [phone] Allergies Active Allergy Reactions Criticality Noted Date Comments Jcwoukwqcgqbmch-At-Gdnjel nesin 06/25/2015 Urinary retention with nasal sprays [...] await results. SHAQVT (nonsustained ventricul ar tachycardia) ([facility] V24, [facility] V28) 11/24/2023 Overview (07/18/2024): Last Assessment & Plan: 6 beat run noted in September 2023; no new alerts received. Will continue to monitor device per device clinic protocol. Assessment & Plan (10/18/2024 8:05 AM EST): No recent episodes noted on most recent device check from 08/2024; we will continue to monitor his device for further episodes. Secondary hypercoagulability disorder ([facility] V 24) 11/24/2023 Nonrheumatic tricuspid valve regurgitation 09/30 Overview (07/18/2024): Last Assessment & Plan: Mild tricuspid regurgitation noted on most recent echocardiogram 02/12/2024; he offers no symptoms concerning for worsening valvular dysfunction. We will continue to monitor with serial imaging. Ascending aorta dilation ([facility] V24) Overview (07/18/2024): Last Assessment [...] [facility] Dilated cardiomyopathy ([facility] V24, [facility] V28 ) 10/31/2022 Overview (07/18/2024): [...] 06/25/2015 Psoriasis 06/25/2015 Overview (07/18/2024): UVB therapy [facility] 2014 / Humira in past Resolved Problems Problem Noted Date Diagnosed Date Resolved Date Post-traumatic osteoarthritis of right knee 05/07/2023 03/23/2025 Encounters Date Type Department Care Team Description 07/28/2025 5:25 PM EST Ancillary Procedure [facility] Cardiology [facility] - [facility] [address] [facility] [address] [place] [address] 07/13/2025 Results Follow-Up Internal [facility] - [facility] [address] [place] [address] Lizet Hurtado MA 06/27/2025 2:15 PM EDT Ancillary Procedure [facility] - [facility] [address] [facility] [address] [place] [address] 05/29/2025 10:05 AM EDT Ancillary Procedure [facility] [address] [facility] [address] [place] [address] from Last 3 Months Immunizations [...] Description 09/04/2025 1:00 PM EST Office Visit [facility] Hematology Oncology [address] [place] [address] Stacia Petersen, DO [address] [place] [address] Health Maintenance Due Date Last Done Comments [...] this topic Medical Devices Implanted Type Area Rn Imcu Device Identifier Shelf Expiration Date Model / Serial / Lot Medt-Card [place] Xt Sr Mri [id number] Implanted:01/2023 (Quantity not on file) Cardiac Pacemaker [employer] - CARDIAC RHYTH-CRDM RAJEEV XT SR MRI [id number] / [id number] / Medt-Card Rajeev Xt Sr Mri [id number] Implanted:01/2023 (Quantity not on file) Cardiac Pacemaker [employer] - CARDIAC RHYTH-CRDM RAJEEV XT SR MRI / [id number] / Procedures Procedure Name Priority Date/Time Associated [...] period is included. Date Time Interrogation Session [id number] CV DEVICE CHECK Type Interrogation Session Remote CV DEVICE CHECK Implantable Pulse Generator Rn Imcu MDT CV DEVICE CHECK Implantable Pulse Generator Type IPG CV DEVICE CHECK Implantable Pulse Generator Model Rajeev XT SR MRI [id number] CV DEVICE CHECK Implantable Pulse Generator Serial Number [id number] CV DEVICE CHECK Implantable Pulse Generator Implant Date 20230123 CV DEVICE CHECK Battery Remaining Longevity 120.0 CV DEVICE CHECK Battery Voltage 3.010 CV D EVICE CHECK Battery ANNOUNCER Trigger 2.625 CV DEVICE CHECK Battery Status [...] Res ult * COLONOSCOPY Anesthesia - MAC; [facility] ENDOSCOPY (02/06/2025 11:18 AM EDT) Anatomical Region [...] present medications. Narrative 02/06/2025 11:19 AM EDT [facility] GI Patient Name: Ken Brothers Procedure Date: [...] malignant neoplasm of colon CPT copyright 2020 [employer]. All rights reserved. The codes documented in this report are preliminary and upon explosives worker review may be revised to meet current compliance requirements. MD Jose Armando Trejo MD 02/06/2025 11:19:43 AM This report has been signed electronically.Jose Armando Prasad MD Number of Addenda: 0 Note Initiated On: 02/06/2025 10:56 AM Scope In: Scope Out: Endoscopy Department at [facility] - [address] [place] [phone] Procedure Note Jose Armando Prasad MD - 02/06/2025 [facility] GI Patient Name: Ken Brothers Procedure Date: [...] for malignantneoplasm of colon CPT copyright 2020 [employer]. All rights reserved. The codes documented in this report are preliminary and upon explosives worker reviewmay be revised to meet current compliance requirements. MD Jose Armando Trejo MD 02/06/2025 11:19:43 AM This report has been signed electronically.Jose Armando Prasad MD Number of Addenda: 0 Note Initiated On: 02/06/2025 10:56 AM Scope In: Scope Out: Endoscopy Department at [facility] - [address] [place] [phone] IMPRESSION: - Diverticulosis in the left colon. [...] mg/dL LAB CHEMISTRY METHOD 08/26/2024 11:48 AM [facility] VLDL Cholesterol Trev 4.4 mg/dL LAB CHEMISTRY METHOD 08/26/2024 11:48 AM [facility] Non HDL Chol. (LDL+VLDL) 61 <145 mg/dL LAB CHEMISTRY METHOD 08/26/2024 11:48 AM EST [facility] Chol/HDL Ratio 1.8 0.0 - 4.4 LAB CHEMISTRY METHOD 08/26/2024 11:48 AM [facility] Blood Venous blood specimen / Unknown Venipuncture / Unknown 08/26/2024 9:33 AM EST 08/26/2024 9:33 AM EST us Anand Sanchez MD LAB BLOOD ORDERABLES Final Res ult [facility] [address] [place] [address], [place] [phone] from Last 3 Months or Most Recently Relevant to [place] [phone] [employer] [place] MEDICARE ADVANTAGE Advance Directives Documents on File Type Date Recorded Patient Rheumatology Nurse Expl anation Advance Directives and Living Will [...] (hx) 11/16/2018 AD GRIMES DIRECTIVE Care Teams International Editorial Producer Relationship Specialty Start Date End Date Anand Sanchez MD [address] [place] [phone] PCP - General Internal Medicine 06/05/15
--- OUTSIDE RECORDS SUMMARY | 2025-08-24 09:46 | XMS_ITS | Clinical Summary ---
Author Organization [facility] Prior to 02/18/[address] [place] [address] Care Team Providers Care Corn Detasseler Machine Operator Name Role Phone Anand Sanchez MD Primary Care Provider [phone] Allergies No known active allergies Medications Medication [...] age to complete this topic Care Teams Corn Detasseler Machine Operator Relationship Specialty Start Date End Date Anand Sanchez MD PCP - General Internal Medicine 06/02/18
--- OUTSIDE RECORDS SUMMARY | 2025-08-24 09:47 | XMS_ITS ---
Author Name [facility] Organization Unknown Care Team Organization Name Specialty Phone Email Start Date End Maxi Ohara [facility] 11/0811/08/2022
--- OUTSIDE RECORDS SUMMARY | 2025-08-24 09:47 | XMS_ITS | Encounter Summary ---
Author Organization [facility] Address [address] [place] [address] Care Team Providers Care Stone Carriage Operator Name Role Phone Anand Sanchez MD Primary Care Provider [phone] Encounter Details Date Type Department Care Team (Late st Contact Info) Description 07/13/2025 Results Follow-Up Internal Medicine - [facility] [address] [facility] [place] [phone] Lizet Hurtado MA Social History Tobacco Use [...] care for your loved ones. For example, childcare director or elderly care for an older adult? [...] Description 09/04/2025 1:00 PM EST Office Visit [facility] Hematology Oncology [address] [place] [phone] Stacia Petersen, DO [address] [place] [address] documented as of this encounter Visit Diagnoses Not on filedocumented in this encounter Additional Health Concerns Assessment Noted Time PHQ-9 Depression Total Score: 0 04/18/20 25 3:22 PM EDT documented as of this encounter Care Teams Stone Carriage Operator Relationship Specialty Start Date End Date Anand Sanchez MD [address] [place] [address] PCP - General Internal Medicine 06/05/15 documented as of this encounter
== END 2025-08-24 09:01 | disposition home or self-care (01) ==
LOC: HO.MRI 09:00
PROVIDERS: PCP Internal Medicine; Visit Provider Urology
DX: R97.20 Elevated prostate specific antigen [PSA] (principal)
CPT/HCPCS: 72197; 76377; A9585

== ENCOUNTER 2025-08-31 08:18 | Outpatient (AMB) | payer MEDICARE, SELFPAY ==
--- NOTE | 2025-08-31 08:20 | A.OFFVIS_ITS ---
Intake Visit Reasons: 4w/MRI/SET NO UA Intake Note: Patient Is Present for 4 wk follow up Urology Med: None Antibiotic Allergy: None Blood Thinner: Rivaroxaban Last PVR:50ML Labs done : 08/14/25 PSA 10.6 Imaging : Prostate MRI 08/24/25 Accident Investigator Required: No Accompanied by: Self / Same As Patient Allergies No Known Allergies Allergy (Verified 08/31/25 08:21) HPI Comments Details: Ken is a pleasant male. He is a patient of . Seen for the following urologic conditions - lower urinary tract symptoms Discussed MRI PI-RADS 5 lesion Plan prostate biopsy Off finasteride PSA has jumped to 11.6 F 9% Had been as high as 5.8 in September 2017 MRI 30gm Posterior peripheral zone bilaterally, although greater on the left extending from the base to the apex measuring at least 2.5 x 1.2 cm. Recommend prostate MRI Had increased his cycling volume to 70 miles a week 12/12 GreenLight laser prostatectomy Prior conversation about cycling in [place] through the [employer] Lower Urinary Tract Symptoms: Current visit is for further evaluation of, lower urinary tract symptoms, predominate obstructive symptoms. Current treatment includes 07/07 , alpha elaine, terazosin 10/08 , alpha elaine, terazosin, 5-AR, finasteride. Prostate Symptom Score Moderate (9-19), Bother 2. Symptoms include 06/07 , incomplete emptying, weak stream, nocturia (>2), and are progressing 10/08 , incomplete emptying 400cc, weak stream, and are stable. Results from testing include cystoscopy Trilobar hypertrophy 07/07 Prior Prostate Score moderate. PSA 10/08 5.8 01/06 5.1, 04/07 4.0, 06/09 2.1, 02/08 1.8, 08/11 1.9, 07/14 4.2, 01/13 5.4 Prostate volume 30-50gm. Testing at next visit will include bladder scan [facility] Medical History (Updated 08/02/25 @ 10:08 by Neo Mcgraw MD) Hyperlipidemia Palpitations Elevated PSA Adenomatous colon polyp Psoriasis Anemia Atrial fibrillation HTN (hypertension) Bradycardia Murmur Dilated cardiomyopathy Post-traumatic osteoarthritis of right knee Ascending aorta dilatation Hyponatremia Nonrheumatic tricuspid valve regurgitation NSVT (nonsustained ventricular tachycardia) Hx of cardiac pacemaker On anticoagulant therapy Secondary hypercoagulability disorder Mitral regurgitation Pyuria H/O urinary retention Incomplete emptying of bladder Surgical History History of permanent cardiac pacemaker placement History of total left knee replacement History of surgery Social History Patient Tobacco Use Status: Never used Tobacco Review of Systems Const Denies chills and Denies fever(s) Card Reports no additional complaints and Denies syncope Resp Denies cough GI Denies abdominal pain and Denies heartburn Reports as per HPI and Denies change in libido Neuro Denies syncope Psych Denies change in libido Endo Denies change in libido Physical Exam Const General: cooperative, healthy appearing, comfortable and no acute distress Orientation/consciousness: patient oriented x3 HEENT Face and sinus: Yes normal facial exam Mouth: moist mucous membranes Neck Neck: Yes normal visual inspection, Yes full ROM and Yes trachea midline Chest Chest palpation & inspection: normal inspection of the chest Resp Effort & Inspection: normal respiratory effort, able to speak in complete sentences and no respiratory distress GI Inspection: Yes normal to inspection Back/Spine/Pelvis Cervical Spine: normal cervical lordosis Thoracic/Lumbar Spine: thoracic and lumbar spine normal to inspection Skin General skin exam: no rashes or lesions noted Neuro General: patient oriented x3, gait normal, tone normal and moves all extremities Extrem General: Yes normal to inspection and Yes capillary refill normal Assessment & Plan Assessment & Plan (1) Nocturia more than twice per night: Code(s): R35.1 - Nocturia Category: Medical (2) BPH w urinary obs/LUTS: Code(s): N40.1 - Benign prostatic hyperplasia with lower urinary tract symptoms; N13.8 - Other obstructive and reflux uropathy Category: Medical Plan Risks and benefits regarding trans rectal ultrasound with prostate biopsy were discussed. Options of continued surveillance, no treatment and biopsy were offered. The risks include but are not limited to, urinary tract infection, sepsis, difficulty urinating, bleeding into the rectum or bladder that requires intervention and transfusion,and failure to diagnose prostate cancer. The patient understands the options and the risks involved. They wish to proceed. Printed information was provided to ensure he remains off anticoagulation for the appropriate length of time. He may require cardiology or PCP clearance. An antibiotic will be administered prior to, and following the procedure Medications: New levofloxacin take 1 tablet day before procedure, 1 tablet day of procedure and 1 tablet day after procedure 500 mg PO DAILY 3 tabs 0RF 3 days R97.20 - Elevated prostate specific antigen [PSA] Patient Instructions: This note is constructed using voice recognition software. While every effort has been made to ensure accuracy school curriculum developer errors may have been included. Imaging studies, laboratory and physical exam results were discussed and reviewed in detail. No major barriers to patient understanding were identified. An opportunity to ask questions regarding the treatment plan was provided. All questions were answered. The patient expressed understanding and agreement with the above treatment plan. The patient is aware they should contact our office by phone for worsening of their current condition or the appearance of new urologic symptoms. Compliance is encouraged with any medications and followup testing that is ordered. It is a privilege to participate in the urologic care of your patient. If you have any questions or concerns regarding treatment for the above conditions, or other urologic issues, please do not hesitate to contact me. The office telephone contact is [phone]. Sincerely, Dr Neo Mcgraw MD, [facility] - Urology Compassionate Specialist Care for the Genitourinary System Coding Level of Care Code Est Pt Level 4 (72881) Add On Problem Visit Only Diagnoses Nocturia more than twice per night R35.1 BPH w urinary obs/LUTS N40.1; N13.8
== END 2025-08-31 09:07 | disposition home or self-care (01) ==
LOC: HO.HUSH 08:19
PROVIDERS: PCP Internal Medicine; Visit Provider Urology
DX: R35.1 Nocturia (principal); N40.1 Benign prostatic hyperplasia with lower urinary tract symptoms; N13.8 Other obstructive and reflux uropathy
CPT/HCPCS: 99214; G2211

== ENCOUNTER → 2025-08-31 08:18 | Outpatient (BNVA) | payer MEDICARE, SELFPAY | PROVIDERS: PCP Internal Medicine; Visit Provider Urology | DX: R35.1 Nocturia (principal); N40.1 Benign prostatic hyperplasia with lower urinary tract symptoms | CPT/HCPCS: 99212 ==

== ENCOUNTER 2025-09-12 07:25 | Outpatient (REF) | payer MEDICARE, SELFPAY ==
--- OUTSIDE RECORDS SUMMARY | 2025-09-12 07:28 | XMS_ITS | Encounter Summary ---
Author Organization [facility] Address [address] [place] [address] Care Team Providers Care Responder Name Role Phone Anand Sanchez MD Primary Care Provider [phone] Encounter Details Date Type Department Care Team (Late st Contact Info) Description 07/13/2025 Results Follow-Up Internal Medicine - [facility] [address] [facility] [place] [id number] Lizet Hurtado MA Social History Tobacco Use [...] your loved ones. For example, early childhood assistant or elderly care for an older adult? [...] Care Team (Late st Contact Info) Description 10/03/2025 9:45 AM EST Office Visit [facility] Hematology Oncology [address] [place] [phone] Stacia Petersen, DO [address] [place] [address] documented as of this encounter Visit Diagnoses Not on filedocumented in this encounter Additional Health Concerns Assessment Noted Time PHQ-9 Depression Total Score: 0 04/18/20 25 3:22 PM EDT documented as of this encounter Care Teams Responder Relationship Specialty Start Date End Date Anand Sanchez MD [address] [place] [address] PCP - General Internal Medicine 06/05/15 documented as of this encounter
--- OUTSIDE RECORDS SUMMARY | 2025-09-12 07:28 | XMS_ITS ---
Author Name Anand You Address Unknown Organization [facility] Team Providers Care Banker Mason Name Role Phone Unavailable Primary Care Physician Unavailab le History Of Present Illness No Data Medications Medication Generic Name RxNorm Strength Strength Unit Route Dose Dose Form Frequency Date Started Date Ended Status Indication Sig Restasis cyclospo rine 0.05 % Ophtha lmic (eye) dropp erett e active alclometaso ne alclomet asone 664297 0.05 % Topica l cream 09/04/20 22 active Appl y spar ingl y to psor chris on thin skin once or twic e a day as need ed. calcipotrie ne calcipot riene 503053 0.005 % Topica l cream 03/28/20 21 suspend ed Appl y to psor iasi s twic e amber y. May use with clob etas ol. clobetasol clobetas ol 801741 0.05 % Topica l cream prn 10/03/19 20 active Appl y topi call y twic e a day to psor iasi s on trun k and extr emit ies for 1 to 2 week s as need ed ketoconazol e ketocona zole 446706 2 % Topica l cream 03/09/20 25 active Appl y to the red rash on the face twic e a day. amlodipine besylate (bulk) amlodipi ne besylate (bulk) 100 mg Miscel laneou s 1 tab qd active Atorvastati n Calcium atorvast atin NULL mg oral 1 tab qd 12/21/19 19 active finasteride finaster rica 434062 5 mg Oral 1 table t qd 09/28/19 18 active losartan losartan 25 mg Oral 1 table t qd active terazosin terazosi n 223970 5 mg Oral 1 capsu le qd 09/28/19 18 active Xarelto rivaroxa ban NULL mg oral 1 tab qd 07/07/20 16 active clobetasol clobetas ol 424004 0.05 % Scalp solut ion prn 11/14/19 22 active Appl y to scal p twic e a day as need ed for itch ing and scal ing. Humira Pen Psor-Uveits -Adol HS adalimum ab 40 mg/0.8 mL Subcut aneous pen injec tor kit 10/29/[address] two syri nges (80m g) week 0, then inje ct one syri nge (40m g) week [address], [address] one syri nge (40m g) once ever y 2 week s ther eaft er. Rojelio d PA till 10/22 11/10 25. Fluticasone Propionate fluticas one propiona te NULL 1 spray pen 12/29/19 18 active Problems Problem Code Type Status Date of Diagnosis Date of Resolution History of clinical finding in subject (situation) 654510519( SNOMED) Problem active Senile hyperkeratosis (disorder) 794807083( SNOMED) Diagnosis active 12/28/2017 Inflamed seborrheic keratosis (disorder) 024081485( SNOMED) Diagnosis active 06/01/2017 Senile hyperkeratosis (disorder) 726400325( SNOMED) Diagnosis active 07/07/2016 Psoriasis vulgaris (disorder) 474278125( SNOMED) Diagnosis active 02/25/2016 Psoriasis vulgaris (disorder) 721187922( SNOMED) Diagnosis active 09/10/2015 Psoriasis vulgaris (disorder) 328831558( SNOMED) Diagnosis active 07/23/2015 Psoriasis (disorder) 0460363(SN OMED) Problem active Psoriasis (disorder) 2728778(SN OMED) Diagnosis active 03/12/2015 Psoriasis (disorder) 6394453(SN OMED) Diagnosis active 01/16/2015 Disorder of skin pigmentation (disorder) 96671152(S NOMED) Diagnosis active 07/11/2014 Psoriasis vulgaris L40.0(ICD- 10) Diagnosis active 07/05/2019 Psoriasis vulgaris L40.0(ICD- 10) Diagnosis active 07/18/2019 Psoriasis vulgaris L40.0(ICD- 10) Diagnosis active 07/25/2019 Inflamed seborrheic keratosis L82.0(ICD- 10) Diagnosis active 07/25/2019 Other seborrheic keratosis L82.1(ICD- 10) Diagnosis active 07/25/2019 Other melanin hyperpigmentation L81.4(ICD- 10) Diagnosis active 07/25/2019 Arthritis (disorder) 8522182(SN OMED) Problem active Atrial fibrillation (disorder) 19851275(S NOMED) Problem active Psoriasis vulgaris L40.0(ICD- 10) Diagnosis active 08/01/2019 Psoriasis vulgaris L40.0(ICD- 10) Diagnosis active 08/15/2019 Psoriasis vulgaris L40.0(ICD- 10) Diagnosis active 08/29/2019 Psoriasis vulgaris L40.0(ICD- 10) Diagnosis active 09/12/2019 Psoriasis vulgaris L40.0(ICD- 10) Diagnosis active 09/26/2019 Psoriasis vulgaris L40.0(ICD- 10) Diagnosis active 10/10/2019 Psoriasis vulgaris L40.0(ICD- 10) Diagnosis active 10/24/2019 Psoriasis vulgaris L40.0(ICD- 10) Diagnosis active 11/08/2019 Psoriasis vulgaris L40.0(ICD- 10) Diagnosis active 11/15/2019 Psoriasis vulgaris L40.0(ICD- 10) Diagnosis active 11/21/2019 Psoriasis vulgaris L40.0(ICD- 10) Diagnosis active 11/28/2019 Psoriasis vulgaris L40.0(ICD- 10) Diagnosis active 12/12/2019 Psoriasis vulgaris L40.0(ICD- 10) Diagnosis active 04/03/2020 Other seborrheic keratosis L82.1(ICD- 10) Diagnosis active 04/03/2020 Psoriasis vulgaris L40.0(ICD- 10) Diagnosis active 06/12/2020 Other melanin hyperpigmentation L81.4(ICD- 10) Diagnosis active 06/12/2020 Psoriasis vulgaris L40.0(ICD- 10) Diagnosis active 06/25/2020 Psoriasis vulgaris L40.0(ICD- 10) Diagnosis active 07/03/2020 Psoriasis vulgaris L40.0(ICD- 10) Diagnosis active 07/09/2020 Psoriasis vulgaris L40.0(ICD- 10) Diagnosis active 07/16/2020 Psoriasis vulgaris L40.0(ICD- 10) Diagnosis active 07/23/2020 Psoriasis vulgaris L40.0(ICD- 10) Diagnosis active 07/30/2020 Psoriasis vulgaris L40.0(ICD- 10) Diagnosis active 08/06/2020 Psoriasis vulgaris L40.0(ICD- 10) Diagnosis active 08/13/2020 Psoriasis vulgaris L40.0(ICD- 10) Diagnosis active 08/20/2020 Psoriasis vulgaris L40.0(ICD- 10) Diagnosis active 08/27/2020 Psoriasis vulgaris L40.0(ICD- 10) Diagnosis active 08/28/2020 Other specified counseling Z71.89(ICD -10) Diagnosis active 08/28/2020 Psoriasis vulgaris L40.0(ICD- 10) Diagnosis active 09/03/2020 Psoriasis vulgaris L40.0(ICD- 10) Diagnosis active 09/10/2020 Psoriasis vulgaris L40.0(ICD- 10) Diagnosis active 09/17/2020 Psoriasis vulgaris L40.0(ICD- 10) Diagnosis active 09/24/2020 Psoriasis vulgaris L40.0(ICD- 10) Diagnosis active 10/01/2020 Psoriasis vulgaris L40.0(ICD- 10) Diagnosis active 10/08/2020 Psoriasis vulgaris L40.0(ICD- 10) Diagnosis active 10/15/2020 Psoriasis vulgaris L40.0(ICD- 10) Diagnosis active 10/24/2020 Psoriasis vulgaris L40.0(ICD- 10) Diagnosis active 10/29/2020 Psoriasis vulgaris L40.0(ICD- 10) Diagnosis active 11/06/2020 Psoriasis vulgaris L40.0(ICD- 10) Diagnosis active 11/12/2020 Psoriasis vulgaris L40.0(ICD- 10) Diagnosis active 11/19/2020 Psoriasis vulgaris L40.0(ICD- 10) Diagnosis active 11/26/2020 Psoriasis vulgaris L40.0(ICD- 10) Diagnosis active 11/27/2020 Psoriasis vulgaris L40.0(ICD- 10) Diagnosis active 12/03/2020 Psoriasis vulgaris (disorder) ( SNOMED) Diagnosis active 12/10/2020 Psoriasis vulgaris (disorder) ( SNOMED) Diagnosis active 12/17/2020 Psoriasis vulgaris (disorder) 551276049( SNOMED) Diagnosis active 12/24/2020 Psoriasis vulgaris (disorder) ( SNOMED) Diagnosis active 01/07/2021 Psoriasis vulgaris (disorder) ( SNOMED) Diagnosis active 01/21/2021 Psoriasis vulgaris (disorder) ( SNOMED) Diagnosis active 02/04/2021 Psoriasis vulgaris (disorder) ( SNOMED) Diagnosis active 03/04/2021 Psoriasis vulgaris (disorder) 606261399( SNOMED) Diagnosis active 03/28/2021 Seborrheic keratosis (disorder) 770667965( SNOMED) Diagnosis active 03/28/2021 Psoriasis vulgaris (disorder) 418330589( SNOMED) Diagnosis active 04/01/2021 Psoriasis vulgaris (disorder) 382837848( SNOMED) Diagnosis active 04/29/2021 Psoriasis vulgaris (disorder) 933313074( SNOMED) Diagnosis active 05/28/2021 Psoriasis vulgaris (disorder) 225235081( SNOMED) Diagnosis active 06/24/2021 Psoriasis vulgaris (disorder) 332201909( SNOMED) Diagnosis active 07/02/2021 Actinic keratosis (disorder) 685915470( SNOMED) Diagnosis active 07/02/2021 Psoriasis vulgaris (disorder) 614719829( SNOMED) Diagnosis active 07/22/2021 Psoriasis vulgaris (disorder) 962388148( SNOMED) Diagnosis active 08/19/2021 Psoriasis vulgaris (disorder) 258906439( SNOMED) Diagnosis active 09/02/2021 Psoriasis vulgaris (disorder) 464228299( SNOMED) Diagnosis active 09/16/2021 Psoriasis vulgaris (disorder) 806796760( SNOMED) Diagnosis active 09/30/2021 Psoriasis vulgaris (disorder) 776242931( SNOMED) Diagnosis active 10/14/2021 Psoriasis vulgaris (disorder) 261302232( SNOMED) Diagnosis active 10/28/2021 Psoriasis vulgaris (disorder) 229119306( SNOMED) Diagnosis active 11/12/2021 Psoriasis vulgaris (disorder) 144432079( SNOMED) Diagnosis active 11/14/2021 Seborrheic keratosis (disorder) 687647267( SNOMED) Diagnosis active 11/14/2021 Psoriasis vulgaris (disorder) 843744793( SNOMED) Diagnosis active 11/25/2021 Psoriasis vulgaris (disorder) 038095287( SNOMED) Diagnosis active 12/09/2021 Psoriasis vulgaris (disorder) 302716115( SNOMED) Diagnosis active 12/23/2021 Psoriasis vulgaris (disorder) 177485698( SNOMED) Diagnosis active 01/06/2022 Psoriasis vulgaris (disorder) 839511729( SNOMED) Diagnosis active 01/20/2022 Psoriasis vulgaris (disorder) 470758738( SNOMED) Diagnosis active 02/04/2022 Psoriasis vulgaris (disorder) ( SNOMED) Diagnosis active 02/10/2022 Psoriasis vulgaris (disorder) ( SNOMED) Diagnosis active 02/24/2022 Psoriasis vulgaris (disorder) ( SNOMED) Diagnosis active 03/25/2022 Psoriasis vulgaris (disorder) ( SNOMED) Diagnosis active 04/28/2022 Psoriasis vulgaris (disorder) ( SNOMED) Diagnosis active 05/27/2022 Psoriasis vulgaris (disorder) ( SNOMED) Diagnosis active 05/27/2022 Seborrheic keratosis (disorder) 240476300( SNOMED) Diagnosis active 05/27/2022 Hypercholesterolemia (disorder) 49148002(S NOMED) Problem active Psoriasis vulgaris (disorder) 616935525( SNOMED) Diagnosis active 06/23/2022 Psoriasis vulgaris (disorder) ( SNOMED) Diagnosis active 07/21/2022 Psoriasis vulgaris (disorder) 238477413( SNOMED) Diagnosis active 08/04/2022 Psoriasis vulgaris (disorder) 625356551( SNOMED) Diagnosis active 08/18/2022 Psoriasis vulgaris (disorder) ( SNOMED) Diagnosis active 09/04/2022 Seborrheic keratosis (disorder) 905961006( SNOMED) Diagnosis active 09/04/2022 Disorder of pigmentation (disorder) 915275818( SNOMED) Diagnosis active 09/04/2022 Psoriasis vulgaris (disorder) ( SNOMED) Diagnosis active 09/04/2022 Psoriasis vulgaris (disorder) ( SNOMED) Diagnosis active 09/16/2022 Psoriasis vulgaris (disorder) 758461934( SNOMED) Diagnosis active 09/29/2022 Psoriasis vulgaris (disorder) ( SNOMED) Diagnosis active 10/13/2022 Psoriasis vulgaris (disorder) ( SNOMED) Diagnosis active 10/27/2022 Psoriasis vulgaris (disorder) 683779582( SNOMED) Diagnosis active 11/11/2022 Psoriasis vulgaris (disorder) 957984520( SNOMED) Diagnosis active 11/24/2022 Psoriasis vulgaris (disorder) 909935589( SNOMED) Diagnosis active 12/08/2022 Psoriasis vulgaris (disorder) 490268784( SNOMED) Diagnosis active 12/16/2022 Seborrheic keratosis (disorder) 089492939( SNOMED) Diagnosis active 12/16/2022 Psoriasis vulgaris (disorder) ( SNOMED) Diagnosis active 12/22/2022 Psoriasis vulgaris (disorder) 304251628( SNOMED) Diagnosis active 12/29/2022 Psoriasis vulgaris (disorder) 482576738( SNOMED) Diagnosis active 01/05/2023 Psoriasis vulgaris (disorder) ( SNOMED) Diagnosis active 01/12/2023 Psoriasis vulgaris (disorder) ( SNOMED) Diagnosis active 01/19/2023 Psoriasis vulgaris (disorder) 936576157( SNOMED) Diagnosis active 01/26/2023 Psoriasis vulgaris (disorder) 696907467( SNOMED) Diagnosis active 02/02/2023 Psoriasis vulgaris (disorder) 107796566( SNOMED) Diagnosis active 02/09/2023 Psoriasis vulgaris (disorder) 512576313( SNOMED) Diagnosis active 02/17/2023 Psoriasis vulgaris (disorder) 478126324( SNOMED) Diagnosis active 02/24/2023 Psoriasis vulgaris (disorder) 269879115( SNOMED) Diagnosis active 03/09/2023 Psoriasis vulgaris (disorder) 190536948( SNOMED) Diagnosis active 03/25/2023 Psoriasis vulgaris (disorder) 142767539( SNOMED) Diagnosis active 04/06/2023 Psoriasis vulgaris (disorder) 626700476( SNOMED) Diagnosis active 04/20/2023 Psoriasis vulgaris (disorder) 148080083( SNOMED) Diagnosis active 05/04/2023 Psoriasis vulgaris (disorder) 067884276( SNOMED) Diagnosis active 05/18/2023 Psoriasis vulgaris (disorder) 369684809( SNOMED) Diagnosis active 06/08/2023 Psoriasis vulgaris (disorder) 952450105( SNOMED) Diagnosis active 06/22/2023 Psoriasis vulgaris (disorder) 218925737( SNOMED) Diagnosis active 06/29/2023 Psoriasis vulgaris (disorder) 241007105( SNOMED) Diagnosis active 07/06/2023 Psoriasis vulgaris (disorder) 216547756( SNOMED) Diagnosis active 07/13/2023 Psoriasis vulgaris (disorder) 334645200( SNOMED) Diagnosis active 07/20/2023 Psoriasis vulgaris (disorder) 591533630( SNOMED) Diagnosis active 07/27/2023 Psoriasis vulgaris (disorder) 438980392( SNOMED) Diagnosis active 07/28/2023 Seborrheic keratosis (disorder) 525737360( SNOMED) Diagnosis active 07/28/2023 Psoriasis vulgaris (disorder) 537246555( SNOMED) Diagnosis active 08/03/2023 Psoriasis vulgaris (disorder) 629081908( SNOMED) Diagnosis active 08/10/2023 Psoriasis vulgaris (disorder) 298657359( SNOMED) Diagnosis active 08/17/2023 Psoriasis vulgaris (disorder) 354715721( SNOMED) Diagnosis active 08/24/2023 Psoriasis vulgaris (disorder) 642122729( SNOMED) Diagnosis active 08/31/2023 Psoriasis vulgaris (disorder) 716266496( SNOMED) Diagnosis active 09/07/2023 Psoriasis vulgaris (disorder) 931249749( SNOMED) Diagnosis active 09/15/2023 Psoriasis vulgaris (disorder) 035730713( SNOMED) Diagnosis active 09/22/2023 Psoriasis vulgaris (disorder) 592105799( SNOMED) Diagnosis active 09/28/2023 Psoriasis vulgaris (disorder) 604652648( SNOMED) Diagnosis active 10/05/2023 Psoriasis vulgaris (disorder) 295796695( SNOMED) Diagnosis active 10/12/2023 Psoriasis vulgaris (disorder) 118953922( SNOMED) Diagnosis active 10/19/2023 Psoriasis vulgaris (disorder) 019399447( SNOMED) Diagnosis active 10/29/2023 Psoriasis vulgaris (disorder) 090137785( SNOMED) Diagnosis active 11/02/2023 Psoriasis vulgaris (disorder) 029091634( SNOMED) Diagnosis active 11/10/2023 Psoriasis vulgaris (disorder) 200974360( SNOMED) Diagnosis active 11/16/2023 Psoriasis vulgaris (disorder) 343721478( SNOMED) Diagnosis active 11/23/2023 Psoriasis vulgaris (disorder) 534105727( SNOMED) Diagnosis active 11/27/2023 Psoriasis vulgaris (disorder) 384373572( SNOMED) Diagnosis active 10/26/2023 Psoriasis vulgaris (disorder) 541687802( SNOMED) Diagnosis active 12/07/2023 Psoriasis vulgaris (disorder) 374470397( SNOMED) Diagnosis active 12/14/2023 Psoriasis vulgaris (disorder) 719670564( SNOMED) Diagnosis active 12/21/2023 Psoriasis vulgaris (disorder) 179023216( SNOMED) Diagnosis active 12/28/2023 Psoriasis vulgaris (disorder) 183056720( SNOMED) Diagnosis active 01/04/2024 Psoriasis vulgaris (disorder) 232134774( SNOMED) Diagnosis active 01/11/2024 Psoriasis vulgaris (disorder) 315389718( SNOMED) Diagnosis active 01/19/2024 Psoriasis vulgaris (disorder) 285934504( SNOMED) Diagnosis active 01/25/2024 Psoriasis vulgaris (disorder) 173025354( SNOMED) Diagnosis active 02/01/2024 Psoriasis vulgaris (disorder) 569129616( SNOMED) Diagnosis active 02/08/2024 Psoriasis vulgaris (disorder) 823879932( SNOMED) Diagnosis active 02/16/2024 Psoriasis vulgaris (disorder) 241521777( SNOMED) Diagnosis active 02/18/2024 Patient encounter status (finding) 627504144( SNOMED) Diagnosis active 02/18/2024 Psoriasis vulgaris (disorder) 946435371( SNOMED) Diagnosis active 02/22/2024 Psoriasis vulgaris (disorder) 542205226( SNOMED) Diagnosis active 02/29/2024 Psoriasis vulgaris (disorder) 679200106( SNOMED) Diagnosis active 03/07/2024 Psoriasis vulgaris (disorder) 978128470( SNOMED) Diagnosis active 03/14/2024 Psoriasis vulgaris (disorder) 218430814( SNOMED) Diagnosis active 03/21/2024 Psoriasis vulgaris (disorder) 685964892( SNOMED) Diagnosis active 03/28/2024 Psoriasis vulgaris (disorder) 619702833( SNOMED) Diagnosis active 04/25/2024 Psoriasis vulgaris (disorder) 132937719( SNOMED) Diagnosis active 05/02/2024 Psoriasis vulgaris (disorder) 520628969( SNOMED) Diagnosis active 05/09/2024 Psoriasis vulgaris (disorder) 340854072( SNOMED) Diagnosis active 05/17/2024 Psoriasis vulgaris (disorder) 043549678( SNOMED) Diagnosis active 05/24/2024 Psoriasis vulgaris (disorder) 370207338( SNOMED) Diagnosis active 05/30/2024 Psoriasis vulgaris (disorder) 204430153( SNOMED) Diagnosis active 06/06/2024 Actinic keratosis (disorder) 376339157( SNOMED) Diagnosis active 06/09/2024 Neoplasm of uncertain behavior of skin (disorder) 43966638(S NOMED) Diagnosis active 06/09/2024 Psoriasis vulgaris (disorder) 381530914( SNOMED) Diagnosis active 06/09/2024 Patient encounter status (finding) 170216468( SNOMED) Diagnosis active 06/09/2024 Hearing loss (disorder) 24551205(S NOMED) Problem active Psoriasis vulgaris (disorder) ( SNOMED) Diagnosis active 06/13/2024 Psoriasis vulgaris (disorder) ( SNOMED) Diagnosis active 06/20/2024 Psoriasis vulgaris (disorder) ( SNOMED) Diagnosis active 06/27/2024 Psoriasis vulgaris (disorder) ( SNOMED) Diagnosis active 07/04/2024 Psoriasis vulgaris (disorder) ( SNOMED) Diagnosis active 07/11/2024 Psoriasis vulgaris (disorder) ( SNOMED) Diagnosis active 07/18/2024 Psoriasis vulgaris (disorder) ( SNOMED) Diagnosis active 07/25/2024 Psoriasis vulgaris (disorder) ( SNOMED) Diagnosis active 08/02/2024 Psoriasis vulgaris (disorder) ( SNOMED) Diagnosis active 08/08/2024 Psoriasis vulgaris (disorder) ( SNOMED) Diagnosis active 08/15/2024 Psoriasis vulgaris (disorder) ( SNOMED) Diagnosis active 08/22/2024 Psoriasis vulgaris (disorder) ( SNOMED) Diagnosis active 08/29/2024 Psoriasis vulgaris (disorder) ( SNOMED) Diagnosis active 09/05/2024 Psoriasis vulgaris (disorder) ( SNOMED) Diagnosis active 09/08/2024 Seborrheic dermatitis (disorder) 06572435(S NOMED) Diagnosis active 09/08/2024 Seborrheic keratosis (disorder) 675817798( SNOMED) Diagnosis active 09/08/2024 Psoriasis vulgaris (disorder) ( SNOMED) Diagnosis active 09/12/2024 Psoriasis vulgaris (disorder) ( SNOMED) Diagnosis active 09/19/2024 Psoriasis vulgaris (disorder) ( SNOMED) Diagnosis active 09/26/2024 Psoriasis vulgaris (disorder) 446237838( SNOMED) Diagnosis active 10/03/2024 Psoriasis vulgaris (disorder) 747632749( SNOMED) Diagnosis active 10/11/2024 Psoriasis vulgaris (disorder) 238556917( SNOMED) Diagnosis active 10/17/2024 Psoriasis vulgaris (disorder) 118320315( SNOMED) Diagnosis active 10/24/2024 Psoriasis vulgaris (disorder) 617732303( SNOMED) Diagnosis active 10/31/2024 Psoriasis vulgaris (disorder) 212698034( SNOMED) Diagnosis active 11/08/2024 Psoriasis vulgaris (disorder) 885147699( SNOMED) Diagnosis active 11/14/2024 Psoriasis vulgaris (disorder) 685229286( SNOMED) Diagnosis active 11/21/2024 Psoriasis vulgaris (disorder) ( SNOMED) Diagnosis active 11/28/2024 Psoriasis vulgaris (disorder) 286805110( SNOMED) Diagnosis active 12/05/2024 Psoriasis vulgaris (disorder) 115800510( SNOMED) Diagnosis active 12/12/2024 Psoriasis vulgaris (disorder) 714522595( SNOMED) Diagnosis active 12/19/2024 Psoriasis vulgaris (disorder) 097317661( SNOMED) Diagnosis active 12/26/2024 Psoriasis vulgaris (disorder) 453001790( SNOMED) Diagnosis active 01/02/2025 Psoriasis vulgaris (disorder) 419782173( SNOMED) Diagnosis active 01/09/2025 Psoriasis vulgaris (disorder) 402659970( SNOMED) Diagnosis active 01/16/2025 Psoriasis vulgaris (disorder) 287827407( SNOMED) Diagnosis active 01/23/2025 Psoriasis vulgaris (disorder) 215121302( SNOMED) Diagnosis active 01/30/2025 Psoriasis vulgaris (disorder) 850625171( SNOMED) Diagnosis active 02/07/2025 Psoriasis vulgaris (disorder) 088103233( SNOMED) Diagnosis active 02/14/2025 Psoriasis vulgaris (disorder) 468852673( SNOMED) Diagnosis active 02/27/2025 Psoriasis vulgaris (disorder) 746382519( SNOMED) Diagnosis active 03/06/2025 Psoriasis vulgaris (disorder) 573614217( SNOMED) Diagnosis active 03/09/2025 Psoriasis vulgaris (disorder) 627926769( SNOMED) Diagnosis active 03/13/2025 Psoriasis vulgaris (disorder) 632527973( SNOMED) Diagnosis active 03/27/2025 Psoriasis vulgaris (disorder) 398060273( SNOMED) Diagnosis active 04/10/2025 Psoriasis vulgaris (disorder) 500724670( SNOMED) Diagnosis active 04/24/2025 Psoriasis vulgaris (disorder) 286782561( SNOMED) Diagnosis active 05/08/2025 Psoriasis vulgaris (disorder) 394041926( SNOMED) Diagnosis active 05/23/2025 Psoriasis vulgaris (disorder) 811204383( SNOMED) Diagnosis active 06/05/2025 Psoriasis vulgaris (disorder) 628449652( SNOMED) Diagnosis active 06/19/2025 Psoriasis vulgaris (disorder) 838298880( SNOMED) Diagnosis active 07/04/2025 Psoriasis vulgaris (disorder) ( SNOMED) Diagnosis active 07/17/2025 Psoriasis vulgaris (disorder) 422581403( SNOMED) Diagnosis active 07/31/2025 Psoriasis vulgaris (disorder) 080245950( SNOMED) Diagnosis active 08/14/2025 Psoriasis vulgaris (disorder) 422715742( SNOMED) Diagnosis active 08/28/2025 Psoriasis vulgaris (disorder) ( SNOMED) Diagnosis active 09/05/2025 Inflamed seborrheic keratosis (disorder) 700590623( SNOMED) Diagnosis active 09/05/2025 Psoriasis vulgaris (disorder) 530289931( SNOMED) Diagnosis active 09/11/2025 Results No data Encounters Service provided at [address], [facility], [place], [place] [id number]. Office phonenumber is [phone]. Office fax number is [phone]. Encounter Diagnosis Location Date / Time Type Disc harge Status Psoriasis (L40.0) [facility] 09/11/2025 13:45:00 UTC NI Reason For Referral No data Procedures Procedure Date Phototherapy of skin (procedure) 025 12:00 am UTC Phototherapy of skin (procedure) 025 12:00 am UTC Phototherapy of skin (procedure) 025 12:00 am UTC Phototherapy of skin (procedure) 025 12:00 am UTC Phototherapy of skin (procedure) 025 12:00 am UTC Phototherapy of skin (procedure) 025 12:00 am UTC Phototherapy of skin (procedure) 025 12:00 am UTC Phototherapy of skin (procedure) 025 12:00 am UTC Phototherapy of skin (procedure) 025 12:00 am UTC Phototherapy of skin (procedure) 025 12:00 am UTC Phototherapy of skin (procedure) 025 12:00 am UTC Phototherapy of skin (procedure) 025 12:00 am UTC Phototherapy of skin (procedure) 025 12:00 am UTC Phototherapy of skin (procedure) 025 12:00 am UTC Phototherapy of skin (procedure) 025 12:00 am UTC Phototherapy of skin (procedure) 025 12:00 am UTC Phototherapy of skin (procedure) 025 12:00 am UTC Phototherapy of skin (procedure) 025 12:00 am UTC Phototherapy of skin (procedure) 025 12:00 am UTC Phototherapy of skin (procedure) 025 12:00 am UTC Phototherapy of skin (procedure) 025 12:00 am UTC Phototherapy of skin (procedure) 025 12:00 am UTC Phototherapy of skin (procedure) 025 12:00 am UTC Phototherapy of skin (procedure) 025 12:00 am UTC Phototherapy of skin (procedure) 025 12:00 am UTC Phototherapy of skin (procedure) 025 12:00 am UTC Phototherapy of skin (procedure) 025 12:00 am UTC Phototherapy of skin (procedure) 025 12:00 am UTC Phototherapy of skin (procedure) 025 12:00 am UTC Phototherapy of skin (procedure) 025 12:00 am UTC Phototherapy of skin (procedure) 025 12:00 am UTC Phototherapy of skin (procedure) 025 12:00 am UTC Phototherapy of skin (procedure) 025 12:00 am UTC Phototherapy of skin (procedure) 025 12:00 am UTC Phototherapy of skin (procedure) 025 12:00 am UTC Phototherapy of skin (procedure) 025 12:00 am UTC Phototherapy of skin (procedure) 025 12:00 am UTC Phototherapy of skin (procedure) 024 12:00 am UTC Phototherapy of skin (procedure) 024 12:00 am UTC Phototherapy of skin (procedure) 024 12:00 am UTC Phototherapy of skin (procedure) 024 12:00 am UTC Phototherapy of skin (procedure) 024 12:00 am UTC Phototherapy of skin (procedure) 024 12:00 am UTC Phototherapy of skin (procedure) 024 12:00 am UTC Phototherapy of skin (procedure) 024 12:00 am UTC Phototherapy of skin (procedure) 024 12:00 am UTC Phototherapy of skin (procedure) 024 12:00 am UTC Phototherapy of skin (procedure) 024 12:00 am UTC Phototherapy of skin (procedure) 024 12:00 am UTC Phototherapy of skin (procedure) 024 12:00 am UTC Phototherapy of skin (procedure) 024 12:00 am UTC Phototherapy of skin (procedure) 024 12:00 am UTC Cryotherapy of skin lesion with liquid n itrogen (procedure) 06/09/2024 12:00 am UTC Destruction of premalignant skin lesion (procedure) 06/09/2024 12:00 am UTC Phototherapy of skin (procedure) 024 12:00 am UTC Phototherapy of skin (procedure) 024 12:00 am UTC Phototherapy of skin (procedure) 024 12:00 am UTC Phototherapy of skin (procedure) 024 12:00 am UTC Phototherapy of skin (procedure) 024 12:00 am UTC Phototherapy of skin (procedure) 024 12:00 am UTC Phototherapy of skin (procedure) 024 12:00 am UTC Phototherapy of skin (procedure) 024 12:00 am UTC Phototherapy of skin (procedure) 024 12:00 am UTC Phototherapy of skin (procedure) 024 12:00 am UTC Phototherapy of skin (procedure) 024 12:00 am UTC Phototherapy of skin (procedure) 024 12:00 am UTC Phototherapy of skin (procedure) 024 12:00 am UTC Phototherapy of skin (procedure) 024 12:00 am UTC Phototherapy of skin (procedure) 024 12:00 am UTC Phototherapy of skin (procedure) 024 12:00 am UTC Phototherapy of skin (procedure) 024 12:00 am UTC Phototherapy of skin (procedure) 024 12:00 am UTC Phototherapy of skin (procedure) 024 12:00 am UTC Phototherapy of skin (procedure) 024 12:00 am UTC Phototherapy of skin (procedure) 024 12:00 am UTC Phototherapy of skin (procedure) 024 12:00 am UTC Phototherapy of skin (procedure) 024 12:00 am UTC Phototherapy of skin (procedure) 024 12:00 am UTC Phototherapy of skin (procedure) 024 12:00 am UTC Phototherapy of skin (procedure) 024 12:00 am UTC Phototherapy of skin (procedure) 024 12:00 am UTC Phototherapy of skin (procedure) 024 12:00 am UTC Phototherapy of skin (procedure) 024 12:00 am UTC Phototherapy of skin (procedure) 024 12:00 am UTC Phototherapy of skin (procedure) 024 12:00 am UTC Phototherapy of skin (procedure) 024 12:00 am UTC Phototherapy of skin (procedure) 024 12:00 am UTC Phototherapy of skin (procedure) 024 12:00 am UTC Phototherapy of skin (procedure) 024 12:00 am UTC Phototherapy of skin (procedure) 023 12:00 am UTC Phototherapy of skin (procedure) 023 12:00 am [facility] Cryotherapy of skin lesion with liquid n itrogen (procedure) 05/27/2022 12:00 am [facility] Cryotherapy of skin lesion with liquid n itrogen (procedure) 07/02/2021 12:00 am [facility] Documentation of past medical history (p rocedure) Documentation of past medical history (p rocedure) Documentation of past medical history (p rocedure) Documentation of past medical history (p rocedure) Documentation of past medical history (p rocedure) Documentation of past medical history (p rocedure) Documentation of past medical history (p rocedure) Documentation of past medical history (p rocedure) Documentation of past medical history (p rocedure) Documentation of past medical history (p rocedure) Documentation of past medical history (p rocedure) Documentation of past medical history (p rocedure) Documentation of past medical history (p rocedure) Documentation of past medical history (p rocedure) Documentation of past medical history (p rocedure) Documentation of past medical history (p rocedure) Documentation of past medical history (p rocedure) Documentation of past medical history (p rocedure) Documentation of past medical history (p rocedure) Documentation of past medical history (p rocedure) Documentation of past medical history (p rocedure) Documentation of past medical history (p rocedure) Documentation of past medical history (p rocedure) Documentation of past medical history (p rocedure) Documentation of past medical history (p rocedure) Documentation of past medical history (p rocedure) Documentation of past medical history (p rocedure) Documentation of past medical history (p rocedure) Documentation of past medical history (p rocedure) Documentation of past medical history (p rocedure) Documentation of past medical history (p rocedure) Documentation of past medical history (p rocedure) Documentation of past medical history (p rocedure) Documentation of past medical history (p rocedure) Documentation of past medical history (p rocedure) Documentation of past medical history (p rocedure) Documentation of past medical history (p rocedure) Documentation of past medical history (p rocedure) Documentation of past medical history (p rocedure) Documentation of past medical history (p rocedure) Documentation of past medical history (p rocedure) Documentation of past medical history (p rocedure) Documentation of past medical history (p rocedure) Documentation of past medical history (p rocedure) Documentation of past medical history (p rocedure) Documentation of past medical history (p rocedure) Documentation of past medical history (p rocedure) Documentation of past medical history (p rocedure) Documentation of past medical history (p rocedure) Documentation of past medical history (p rocedure) Documentation of past medical history (p rocedure) Documentation of past medical history (p rocedure) Documentation of past medical history (p rocedure) Documentation of past medical history (p rocedure) Documentation of past medical history (p rocedure) Documentation of past medical history (p rocedure) Documentation of past medical history (p rocedure) Documentation of past medical history (p rocedure) Documentation of past medical history (p rocedure) Documentation of past medical history (p rocedure) Documentation of past medical history (p rocedure) Documentation of past medical history (p rocedure) Documentation of past medical history (p rocedure) Documentation of past medical history (p rocedure) Documentation of past medical history (p rocedure) Documentation of past medical history (p rocedure) Documentation of past medical history (p rocedure) Documentation of past medical history (p rocedure) Documentation of past medical history (p rocedure) Documentation of past medical history (p rocedure) Total replacement of left knee joint (pr ocedure) Total replacement of left knee joint (pr ocedure) Total replacement of left knee joint (pr ocedure) Total replacement of left knee joint (pr ocedure) Total replacement of left knee joint (pr ocedure) Total replacement of left knee joint (pr ocedure) Total replacement of left knee joint (pr ocedure) Total replacement of left knee joint (pr ocedure) Total replacement of left knee joint (pr ocedure) Total replacement of left knee joint (pr ocedure) Total replacement of left knee joint (pr ocedure) Total replacement of left knee joint (pr ocedure) Total replacement of left knee joint (pr ocedure) Total replacement of left knee joint (pr ocedure) Total replacement of left knee joint (pr ocedure) Total replacement of left knee joint (pr ocedure) Total replacement of left knee joint (pr ocedure) Total replacement of left knee joint (pr ocedure) Total replacement of left knee joint (pr ocedure) Total replacement of left knee joint (pr ocedure) Total replacement of left knee joint (pr ocedure) Total replacement of left knee joint (pr ocedure) Total replacement of left knee joint (pr ocedure) Total replacement of left knee joint (pr ocedure) Total replacement of left knee joint (pr ocedure) Total replacement of left knee joint (pr ocedure) Total replacement of left knee joint (pr ocedure) Total replacement of left knee joint (pr ocedure) Total replacement of left knee joint (pr ocedure) Total replacement of left knee joint (pr ocedure) Total replacement of left knee joint (pr ocedure) Total replacement of left knee joint (pr ocedure) Total replacement of left knee joint (pr ocedure) Total replacement of left knee joint (pr ocedure) Total replacement of left knee joint (pr ocedure) Total replacement of left knee joint (pr ocedure) Total replacement of left knee joint (pr ocedure) Total replacement of left knee joint (pr ocedure) Total replacement of left knee joint (pr ocedure) Total replacement of left knee joint (pr ocedure) Total replacement of left knee joint (pr ocedure) Total replacement of left knee joint (pr ocedure) Total replacement of left knee joint (pr ocedure) Total replacement of left knee joint (pr ocedure) Total replacement of left knee joint (pr ocedure) Total replacement of left knee joint (pr ocedure) Total replacement of left knee joint (pr ocedure) Total replacement of left knee joint (pr ocedure) Total replacement of left knee joint (pr ocedure) Total replacement of left knee joint (pr ocedure) Total replacement of left knee joint (pr ocedure) Total replacement of left knee joint (pr ocedure) Total replacement of left knee joint (pr ocedure) Total replacement of left knee joint (pr ocedure) Total replacement of left knee joint (pr ocedure) Total replacement of left knee joint (pr ocedure) Total replacement of left knee joint (pr ocedure) Total replacement of left knee joint (pr ocedure) Total replacement of left knee joint (pr ocedure) Total replacement of left knee joint (pr ocedure) Total replacement of left knee joint (pr ocedure) Total replacement of left knee joint (pr ocedure) Total replacement of left knee joint (pr ocedure) Total replacement of left knee joint (pr ocedure) Total replacement of left knee joint (pr ocedure) Total replacement of left knee joint (pr ocedure) Total replacement of left knee joint (pr ocedure) Total replacement of left knee joint (pr ocedure) Total replacement of left knee joint (pr ocedure) Total replacement of left knee joint (pr ocedure) Total replacement of left knee joint (pr ocedure) Total replacement of left knee joint (pr ocedure) Total replacement of left knee joint (pr ocedure) Total replacement of left knee joint (pr ocedure) Total replacement of left knee joint (pr ocedure) Total replacement of left knee joint (pr ocedure) Total replacement of left knee joint (pr ocedure) Total replacement of left knee joint (pr ocedure) Total replacement of left knee joint (pr ocedure) Total replacement of left knee joint (pr ocedure) Total replacement of left knee joint (pr ocedure) Total replacement of left knee joint (pr ocedure) Total replacement of left knee joint (pr ocedure) Total replacement of left knee joint (pr ocedure) Total replacement of left knee joint (pr ocedure) Total replacement of left knee joint (pr ocedure) Total replacement of left knee joint (pr ocedure) Total replacement of left knee joint (pr ocedure) Total replacement of left knee joint (pr ocedure) Total replacement of left knee joint (pr ocedure) Total replacement of right knee joint (p rocedure) Total replacement of left knee joint (pr ocedure) Total replacement of right knee joint (p rocedure) Total replacement of left knee joint (pr ocedure) Total replacement of right knee joint (p rocedure) Total replacement of left knee joint (pr ocedure) Total replacement of right knee joint (p rocedure) Total replacement of left knee joint (pr ocedure) Total replacement of right knee joint (p rocedure) Total replacement of right knee joint (p rocedure) Total replacement of left knee joint (pr ocedure) Total replacement of left knee joint (pr ocedure) Total replacement of right knee joint (p rocedure) Total replacement of left knee joint (pr ocedure) Total replacement of right knee joint (p rocedure) Total replacement of left knee joint (pr ocedure) Total replacement of right knee joint (p rocedure) Total replacement of left knee joint (pr ocedure) Total replacement of right knee joint (p rocedure) Total replacement of right knee joint (p rocedure) Total replacement of left knee joint (pr ocedure) Total replacement of left knee joint (pr ocedure) Total replacement of right knee joint (p rocedure) Total replacement of right knee joint (p rocedure) Total replacement of left knee joint (pr ocedure) Total replacement of left knee joint (pr ocedure) Total replacement of right knee joint (p rocedure) Total replacement of right knee joint (p rocedure) Total replacement of left knee joint (pr ocedure) Total replacement of left knee joint (pr ocedure) Total replacement of right knee joint (p rocedure) Total replacement of left knee joint (pr ocedure) Total replacement of right knee joint (p rocedure) Total replacement of left knee joint (pr ocedure) Total replacement of right knee joint (p rocedure) Total replacement of right knee joint (p rocedure) Total replacement of left knee joint (pr ocedure) Total replacement of left knee joint (pr ocedure) Total replacement of right knee joint (p rocedure) Total replacement of right knee joint (p rocedure) Total replacement of left knee joint (pr ocedure) Total replacement of left knee joint (pr ocedure) Total replacement of right knee joint (p rocedure) Total replacement of left knee joint (pr ocedure) Total replacement of right knee joint (p rocedure) Total replacement of left knee joint (pr ocedure) Total replacement of right knee joint (p rocedure) Total replacement of left knee joint (pr ocedure) Total replacement of right knee joint (p rocedure) Total replacement of right knee joint (p rocedure) Total replacement of left knee joint (pr ocedure) Total replacement of right knee joint (p rocedure) Total replacement of left knee joint (pr ocedure) Total replacement of left knee joint (pr ocedure) Total replacement of right knee joint (p rocedure) Total replacement of left knee joint (pr ocedure) Total replacement of right knee joint (p rocedure) Total replacement of right knee joint (p rocedure) Total replacement of left knee joint (pr ocedure) Total replacement of left knee joint (pr ocedure) Total replacement of right knee joint (p rocedure) Total replacement of left knee joint (pr ocedure) Total replacement of right knee joint (p rocedure) Total replacement of right knee joint (p rocedure) Total replacement of left knee joint (pr ocedure) Total replacement of left knee joint (pr ocedure) Total replacement of right knee joint (p rocedure) Total replacement of left knee joint (pr ocedure) Total replacement of right knee joint (p rocedure) Total replacement of left knee joint (pr ocedure) Total replacement of right knee joint (p rocedure) Total replacement of left knee joint (pr ocedure) Total replacement of right knee joint (p rocedure) Total replacement of right knee joint (p rocedure) Total replacement of left knee joint (pr ocedure) Total replacement of left knee joint (pr ocedure) Total replacement of right knee joint (p rocedure) Total replacement of left knee joint (pr ocedure) Total replacement of right knee joint (p rocedure) Total replacement of right knee joint (p rocedure) Total replacement of left knee joint (pr ocedure) Total replacement of left knee joint (pr ocedure) Total replacement of right knee joint (p rocedure) Total replacement of left knee joint (pr ocedure) Total replacement of right knee joint (p rocedure) Total replacement of right knee joint (p rocedure) Total replacement of left knee joint (pr ocedure) Total replacement of left knee joint (pr ocedure) Total replacement of right knee joint (p rocedure) Total replacement of left knee joint (pr ocedure) Total replacement of right knee joint (p rocedure) Total replacement of left knee joint (pr ocedure) Total replacement of right knee joint (p rocedure) Total replacement of left knee joint (pr ocedure) Total replacement of right knee joint (p rocedure) Total replacement of left knee joint (pr ocedure) Total replacement of right knee joint (p rocedure) Total replacement of left knee joint (pr ocedure) Total replacement of right knee joint (p rocedure) Total replacement of right knee joint (p rocedure) Total replacement of left knee joint (pr ocedure) Total replacement of left knee joint (pr ocedure) Total replacement of right knee joint (p rocedure) Total replacement of right knee joint (p rocedure) Total replacement of left knee joint (pr ocedure) Total replacement of left knee joint (pr ocedure) Total replacement of right knee joint (p rocedure) Total replacement of left knee joint (pr ocedure) Total replacement of right knee joint (p rocedure) Total replacement of right knee joint (p rocedure) Total replacement of left knee joint (pr ocedure) Total replacement of left knee joint (pr ocedure) 2019 Total replacement of right knee joint (p rocedure) 2023 Review Of Systems No Data Assessment 1.PsoriasisPhototherapy Treatment: Location (Body Touches will Override) - full body; Protocol - Photochemotherapy: Mineral Oil and NBUVB; Total Treatment Time - 3:24 min; Total Body Time - 3:24 min;Comments on Previous Treatment - Room 2; Render Post-care in the Note - yes; Total Body Energy - 1000 mj; Changes in Treatment Protocol - Increase when pt requests by 40 mj pt comes IN 2 X MONTHLY; Skin Type - II; Treatment Number - 198. Plan of Care Code Detail Instructions 448791 clobetasol 0.05 % topical cream Apply to psoriasis (extremities) twice a day for 1 to 2 weeks, then take a one week break. Repeat as needed. 610808 clobetasol 0.05 % topical cream Apply to psoriasis on trunk and extremities twice a day for 1 to 2 weeks as needed. [id number] ketoconazole 2 % topical cream A pply to the red rash on the face twice a day. [id number] clobetasol 0.05 % topical cream Apply to psoriasis on trunk and extremities twice a day for 1 to 2 weeks as needed. [id number] Humira Pen Psoriasis -Uveitis-Adol Hid Sup Start 40 mg/0.8 mL subcut kt Inject two syringes (80mg) week 0, then inject one syringe (40mg) week 1, then inject one syringe (40mg) once every 2 weeks thereafter. Valid PA till 11/02/2024. [id number] Humira 40 mg/0.8 mL subcutaneous syringe kit Inject two syringes (80mg) at week 0, then decrease to one injection (40mg) at week 1. Repeat maintanence dosing at one syringe (40mg) once every 2 weeks thereafter. 074666 clobetasol 0.05 % topical cream Apply topically twice a day to psoriasis on trunk and extremities for 1 to 2 weeks as needed [id number] clobetasol 0.05 % topical cream Apply topically twice a day to psoriasis on trunk and extremities for 1 to 2 weeks as needed, avoiding thin skin 616097 clobetasol 0.05 % topical cream Apply topically twice a day to psoriasis on trunk and extremities for 1 to 2 weeks as needed, avoiding thin skin 358617 alclometasone 0.05 % topical cre am Apply sparingly to psorisis on thin skin once or twice a day as needed. 665573 clobetasol 0.05 % topical cream Apply topically twice a day to psoriasis on trunk and extremities for 1 to 2 weeks as needed 937832 calcipotriene 0.005 % topical cr eam Apply to psoriasis twice daily. May use with clobetasol. 149442 clobetasol 0.05 % scalp solution Apply to scalp twice a day as needed for itching and scaling. 067726 calcipotriene 0.005 % topical cr eam Apply to psoriasis twice daily. May use with clobetasol. 864711 calcipotriene 0.005 % topical cr eam Apply to psoriasis twice daily. May use with clobetasol. 748379 clobetasol 0.05 % topical cream Apply topically twice a day to psoriasis on trunk and extremities for 1 to 2 weeks as needed 560139 betamethasone, augme nted 0.05 % topical cream Apply sparingly to psoriasis sites twice a day as needed 416593 clobetasol 0.05 % topical cream Apply topically twice a day to psoriasis on trunk and extremities for 1 to 2 weeks as needed Instructions No Data Social History Code Activity Start Date End Date [id number] (SNOMED) Never smoker Sex Male Sexual orientation Unspecified Gender identity Unspecified Vital Signs No data Insurances Coverage Status Coverage Type Relationship to Subscriber Member Identifier Subscriber Identifier Group Identifier Payer Identifier Inactive 1 Self [id number] Active Self [id number] Inactive 2 Self [id number]
--- OUTSIDE RECORDS SUMMARY | 2025-09-12 07:28 | XMS_ITS | Clinical Summary ---
Author Organization [facility], Address [address] [place] [address] [place] [address] Phone Care Team Providers Care Design Painter Name Role Phone Anand Sanchez MD Primary Care Provider [phone] Allergies No known active allergies Medications amLODIPine [...] patient's age to complete this topic Insurance [facility] PPO Blue([id number]) [facility] Care Teams Design Painter Relationship Specialty Start Date End [place] [id number] PCP - General Internal Medicine 02/17/23
--- OUTSIDE RECORDS SUMMARY | 2025-09-12 07:28 | XMS_ITS | Clinical Summary ---
Author Organization [address] [place] [address] [place] [phone] Phone Care Team Providers Care Dx Board Operator Name Role Phone Anand Sanchez MD Primary Care Provider [phone] Allergies Active Allergy Reactions Criticality Noted Date Comments Ioosfzauifsfehi-Ae-Dovraz nesin 06/25/2015 Urinary retention with nasal sprays Medications clobetasoL (TEMOVATE) 0.05 % cream Apply topically 2 times daily. Active cycloSPORINE (Restasis MultiDose) 0.05 % drops 12/05/19 22 Active Xarelto 20 mg tablet TAKE 1 TABLET BY MOUTH ONCE A DAY 90 tablet 1 03/27/20 25 Active atorvastatin (LIPITOR) 20 mg tablet TAKE ONE TABLET BY MOUTH EVERY DAY 90 tablet 1 05/15/20 25 Active amLODIPine (NORVASC) 5 mg tablet TAKE ONE TABLET BY MOUTH ONE TIME EACH DAY. 90 tablet 1 05/29/20 25 Active ibuprofen (ADVIL,MOTRIN) 400 mg tablet Take 1 tablet (400 mg total) by mouth every 6 (six) hours if needed. 025 Discontinued fluticasone propionate (FLONASE) 50 mcg/actuation nasal spray 10/03/19 18 025 Discontinued ketoconazole (NIZORAL) 2 % cream 03/09/20 25 025 Discontinued finasteride (PROSCAR) 5 mg tablet Take 1 tablet (5 mg total) by mouth 1 (one) time each day. Do not crush, chew, or split. 025 Discontinued Active Problems Problem Noted Date Diagnosed Date [...] will return to care. Sick sinus syndrome 02/19/2024 Assessment & Plan (10/18/2024 8:05 AM [...] visit. We will await results. NSVT (nonsustained ventricular tachycardia) 01/2024 Overview (07/18/2024): Last Assessment & Plan: 6 beat run noted in September 2023; no new alerts received. Will continue to monitor device per device clinic protocol. Assessment & Plan (10/18/2024 8:05 AM EST): No recent episodes noted on most recent device check from 08/2024; we will continue to monitor his device for further episodes. Secondary hypercoagulability disorder 11/24/2023 Nonrheumatic tricuspid valve regurgitation 09/30 Overview (07/18/2024): Last Assessment & Plan: Mild tricuspid regurgitation noted on most recent echocardiogram 02/12/2024; he offers no symptoms concerning for worsening valvular dysfunction. We will continue to monitor with serial imaging. Ascending aorta dilation 06/29/2023 Overview (07/18/2024): Last Assessment & Plan: Stable [...] [facility] Dilated cardiomyopathy 10/31/2022 Overview (07/18/2024): Last Assessment & Plan: [...] murmur 09/16/2022 Bradycardia 06/11/2021 Overview (07/18/2024): Medtronic Putney XT SR MRI compatible pacemaker implanted 01/23/2023 [...] Most recent metabolic panel stable. Atrial fibrillation 04/01/2016 Overview (07/18/2024): Last Assessment & Plan: [...] 06/25/2015 Psoriasis 06/25/2015 Overview (07/18/2024): UVB therapy [facility] 2015 / Humira in past Resolved Problems Problem Noted Date Diagnosed Date Resolved Date Post-traumatic osteoarthritis of right knee 05/07/2023 03/23/2025 Encounters Date Type Department Care Team Description 09/04/2025 1:40 PM EST Lab Draw Station - [address] [phone] Anemia, unspecified type 09/04/2025 1:00 PM EST Office Visit [facility] Hematology Oncology [address] [place] [phone] Stacia Petersen DO Anemia, unspecified type (Primary Dx) 09/04/2025 8:30 AM EST Telemedicine [facility] [address] [place] [phone] Encounter for subsequent annual wellness visit (AWV) in Medicare patient (Primary Dx) 08/31/2025 Telephone Internal Medicine - [facility] [address] [place], [place] [address] [place] [phone] Stephanie Galaviz MA 08/24/2025 8:25 PM EST Ancillary Procedure [facility] Cardiology [facility] [address] [place] [address] 07/28/2025 5:25 PM EST Ancillary Procedure [facility] [address] [place] [address] 07/13/2025 Results Follow-Up Internal Medicine - [facility] [address] [place] [address] Lizet Hurtado MA 06/27/2025 2:15 PM EDT Ancillary Procedure [facility] Cardiology [facility] [address] [place] [address] from Last 3 Months Immunizations Immunization Administration [...] 0 (1 standard drink = 0.6 oz pure alcohol) 2 pint per day of beer pt reports Housing Instability Answer Date Recorde d Are you worried that in the next 2 months you may not have stable housing? No 09/04/2025 Food Access & Nutrition Answer Date Rec orded Do you have access to a vari ety of food including fruits and vegetables? Yes 09/04/2025 Access to Healthcare Answer Date Record ed Within the last 3 months, ho w many times did you visit the emergency department for your medical care? 0 09/01/2025 Health Literacy Answer Date Recorded How often do you need to hav e someone help you when you read instructions, pamphlets, or other written material from your doctor or pharmacy? Never 09/04/2025 Caregiver: How often do you need to have someone help you when you read instructions, pamphlets, or other written material from your doctor or pharmacy? Not on file 09/04/2025 Financial Risk Answer Date Recorded How hard is it for you to pa y for the very basics like food, housing, medical care, and air conditioning / heating? Not very hard 09/04/2025 Transportation Answer Date Recorded Has the lack of transportati on kept you from meetings, work, or from getting things needed for daily living? No Has the lack of transportati on kept you from medical appointments or from getting medications? No 09/04/2025 Social Isolation Answer Date Recorded How often do you feel lonely or isolated from th ose around you? Never 09/04/2025 Food Risk Answer Date Recorded Within the past 12 months we worried whether our food would run out before we got money to buy more. Never true 09/04/2025 Within the past 12 months th e food we bought just didn't last and we didn't have money to get more. Never true 09/04/2025 Dependent Care Answer Date Recorded Do you need help finding or paying for care for your loved ones. For example, child and family therapist or elderly care for an older adult? No 09/04/2025 Education Answer Date Recorded Do you think completing more education or training, like finishing a GED, going to college, or learning a trade, would be helpful for you? No 09/04/2025 Employment and Income Answer Date Recor ded During the last four weeks, have you been actively looking for work? No 09/04/2025 Living Situation Answer Date Recorded What is your living situation? Unrecognized valu e 09/04/2025 Interpersonal Safety Answer Date Record ed Physical Abuse Unrecognized value 02/06/2025 Verbal Abuse Unrecognized value 02/06/2025 Sex and Gender Information Value Date Recorded Sex Assigned at Male 07/26/2024 9:16 AM EST Legal Sex Male 6:38 AM EST Gender Identity Male 07/26/2024 9:16 AM EST Sexual Orientation Not on file Last Filed Vital Signs Vital Sign Reading Time Taken Comments Blood Pressure 146/85 09/04/2025 1:04 PM EST Pulse 70 09/04/2025 1:04 PM EST Temperature 36.3 C (97.4 F) 09/04/2025 1:04 PM EST Respiratory Rate 16 02/06/2025 11:39 AM EDT Oxygen Saturation 100% 09/04/2025 1:04 PM EST Inhaled Oxygen Concentration - - Weight 77.1 kg (170 lb) 09/04/2025 1:04 PM EST Height 177.8 cm (5' 10 ) 09/04/2025 1:04 PM EST Body Mass Index 24.39 09/04/2025 1:04 PM EST Plan of Treatment Upcoming Encounters Date Type Department Care Team (Late st Contact Info) Description 10/03/2025 9:45 AM EST Office Visit [facility] Hematology Oncology [address] [place] [phone] Stacia Petersen, [address] [place] [address] Health Maintenance Due Date Last Done Comments Pneumococcal Vaccine: 50+ Years (1 of 1 - PCV) 1999 Zoster Vaccines (1 of 2) 1999 DTaP,Tdap,and Td Vaccines (2 - Td or Tdap) 03/17/2021 03/17/2011 Hepatitis C Screening 08/30/2022 Colorectal Cancer Screening: CT Colonography 07/18/2024 RSV Immunization Adult Patients (1 - 1-dose 75+ series) 2024 COVID-19 Vaccine ( season) 2026 07/18/2025, 06/20/2024, 06/24/2023, Additional history exists Falls Risk Assessment 02/06/2026 02/06/2025 Hypertension/CHF/CAD Annual BMP Blood Test 04/26/2026 04/26/2025, 08/26/2024, 05/25/2024, Additional history exists Medicare Annual Wellness Visit 09/04/2026 09/04/2025 Social Influencers of Health Screening 09/04/2026 09/04/2025 Cholesterol Screening (Lipid Panel) 08/26/2029 08/26/2024, 03/07/2024, 03/07/2024 Colorectal Cancer Screening: Colonoscopy 02/06/2030 02/06/2025, 10/13/2017, 10/13/2017 Colorectal Cancer Screening: FIT-DNA (Cologuard) Discontinued 07/05/2024, 07/05/2024 Influenza Vaccine Completed 07/18/2025, , 09/18/2023, Additional history exists Depression Screening Completed 09/04/2025 HIB Vaccines Aged Out No longer eligi [...] this topic Medical Devices Implanted Type Area Pipeline Dispatch Operator Device Identifier Shelf Expiration Date Model / Serial / Lot Medt-Card Putney Xt Sr Mri [id number] Implanted:01/2023 (Quantity not on file) Cardiac Pacemaker MEDTRONIC - CARDIAC RHYTH-CRDM [id number] XT SR MRI [id number] / [id number] / Medt-Card Putney Xt Sr Mri [id number] Implanted:01/2023 (Quantity not on file) Cardiac Pacemaker MEDTRONIC - CARDIAC RHYTH-CRDM RAJEEV XT SR MRI / [id number] / Procedures Procedure Name Priority Date/Time Associated Diagnosis Comments CBC WITH AUTO DIFFERENTIAL Routine 09/04/2025 1:37 PM EST Anemia, unspecified type HEMOGLOBIN ELECTROPHORESIS Routine 09/04/2025 1:37 PM EST Anemia, unspecified type VITAMIN B12 AND FOLATE Routine 09/04/2025 1:37 PM EST Anemia, unspecified type HAPTOGLOBIN Routine 09/04/2025 1:37 PM EST Anemia, unspecified type LACTATE DEHYDROGENASE Routine 09/04/2025 1:37 PM EST Anemia, unspecified type FERRITIN Routine 09/04/2025 1:37 PM EST Anemia, unspecified type IRON AND TIBC Routine 09/04/2025 1:37 PM EST Anemia, unspecified type CBC AND DIFFERENTIAL Routine 09/04/2025 1:37 PM EST Anemia, unspecified type CARDIAC DEVICE CHECK- REMOTE- MURJ Routine 08/24/2025 8:24 PM EST EXTERNAL MRI REPORT 08/24/2025 EXTERNAL MRI REPORT 08/24/2025 EXTERNAL MRI REPORT 08/24/2025 CARDIAC DEVICE CHECK- REMOTE- MURJ Routine 07/28/2025 5:24 PM EST CARDIAC DEVICE CHECK- REMOTE- MURJ Routine 06/27/2025 2:11 PM EDT BASIC METABOLIC PANEL Routine 04/26/2025 2:57 PM EDT COLONOSCOPY Routine 02/06/2025 11:18 AM EDT Hx of colonic polyp LIPID PANEL WITH REFLEX TO DIRECT LDL Routine 08/26/2024 9:33 AM EST Pure hypercholesterolemia from Last 3 Months or Most Recently Relevant to Health Maintenance Results * Vitamin B12 and folate (09/04/2025 1:37 PM EST) Pathologist [facility] Vitamin B-12 893 211 - 911 pcg/mL 09/04/2025 5:16 PM EST [facility] Folate >24.0 >=5.4 ng/ml 09/04/2025 5:16 PM EST [facility] Comment:Over the counter sup plements containing high doses of biotin may interfere with this assay. If interference is suspected, patients shoud be retested after refraining from biotin supplements for 72 hours. Blood Venous blood specimen / Unknown Venipuncture / Unknown 09/04/2025 1:37 PM EST 09/04/2025 4:48 PM EST us Stacia Petersen DO LAB BLOOD ORDERABLES Final Result [facility] [address] [place] [address], * (ABNORMAL) CBC auto differential (09/04/2025 1:37 PM EST) Pathologist [facility] WBC 6.1 4.8 - 10.8 K/mcL LAB HEMETOLOGY METHOD 09/04/2025 4:57 PM EST [facility] RBC 4.30(L) 4.50 - 5.50 M/mcL LAB HEMETOLOGY METHOD 09/04/2025 4:57 PM EST [facility] Hemoglobin 14.3 13.5 - 17.5 g/dL LAB HEMETOLOGY METHOD 09/04/2025 4:57 PM [facility] Hematocrit 40.5(L) 42.0 - 54.0 % LAB HEMETOLOGY METHOD 09/04/2025 4:57 PM [facility] MCV 95.3 79.0 - 98.0 FL LAB HEMETOLOGY METHOD 09/04/2025 4:57 PM [facility] MCH 33.6(H) 27.0 - 32.0 pcg LAB HEMETOLOGY METHOD 09/04/2025 4:57 PM [facility] MCHC 35.3 32.0 - 37.0 g/dL LAB HEMETOLOGY METHOD 09/04/2025 4:57 PM [facility] RDW 12.1 11.0 - 15.0 % LAB HEMETOLOGY METHOD 09/04/2025 4:57 PM [facility] Platelets 251 130 - 400 K/mcL LAB HEMETOLOGY METHOD 09/04/2025 4:57 PM [facility] MPV 9.7 7.0 - 11.0 FL LAB HEMETOLOGY METHOD 09/04/2025 4:57 PM [facility] NRBC 0.0 <1.0 % LAB HEMETOLOGY METHOD 09/04/2025 4:57 PM [facility] NRBC Absolute 0.00 <0.10 K/mcL LAB HEMETOLOGY METHOD 09/04/2025 4:57 PM [facility] Neutrophils Relative 67.8 % LAB HEMETOLOGY METHOD 09/04/2025 4:57 PM [facility] Lymphocytes Relative 17.6 % LAB HEMETOLOGY METHOD 09/04/2025 4:57 PM [facility] Monocytes Relative 10.6 % LAB HEMETOLOGY METHOD 09/04/2025 4:57 PM [facility] Eosinophils Relative 2.4 % LAB HEMETOLOGY METHOD 09/04/2025 4:57 PM EST [facility] Basophils Relative 1.3 % LAB HEMETOLOGY METHOD 09/04/2025 4:57 PM EST [facility] Immature Granulocytes Relative 0.3 % LAB HEMETOLOGY METHOD 09/04/2025 4:57 PM EST [facility] Neutrophils Absolute 4.16 1.50 - 7.00 K/mcL LAB HEMETOLOGY METHOD 09/04/2025 4:57 PM EST [facility] Lymphocytes Absolute 1.08 1.00 - 5.00 K/mcL LAB HEMETOLOGY METHOD 09/04/2025 4:57 PM EST [facility] Monocytes Absolute 0.65 0.20 - 1.00 K/mcL LAB HEMETOLOGY METHOD 09/04/2025 4:57 PM EST [facility] Eosinophils Absolute 0.15 0.00 - 0.50 K/mcL LAB HEMETOLOGY METHOD 09/04/2025 4:57 PM EST [facility] Basophils Absolute 0.08 0.00 - 0.20 K/mcL LAB HEMETOLOGY METHOD 09/04/2025 4:57 PM EST [facility] Immature Granulocytes Absolute 0.02 0.00 - 0.03 K/mcL LAB HEMETOLOGY METHOD 09/04/2025 4:57 PM EST [facility] Blood Venous blood specimen / Unknown Venipuncture / Unknown 09/04/2025 1:37 PM EST 09/04/2025 4:49 PM EST us Stacia Petersen DO LAB BLOOD ORDERABLES Final Result [facility] [address] [place] [address], * Hemoglobin electrophoresis (09/04/2025 1:37 PM EST) Hemoglobin A1 96.7 96.5 - 97.8 % 09/07/2025 9:49 AM EST [facility] Hemoglobin A2 2.6 2.2 - 3.2 % 09/07/2025 9:49 AM EST [facility] Hemoglobin F 0.7 <2.0 % 09/07/2025 9:49 AM EST [facility] Hemoglobin S 0.0 0.0 % 09/07/2025 9:49 AM EST [facility] Hemoglobin C 0.0 0.0 % 09/07/2025 9:49 AM EST [facility] Interpretation See Below 09/07/2025 9:49 AM EST [facility] Comment: No abnormal hemoglobin variants seen on hemoglobin electrophoresis. Test performed at [facility], [address] , [place] [address] Thea Loomis MD, PhD - Advertising Display Rotator Blood Venous blood specimen / Unknown Venipuncture / Unknown 09/04/2025 1:37 PM EST 09/04/2025 4:49 PM EST us Stacia Petersen DO LAB BLOOD ORDERABLES Final Result [facility] [address] [place] [address] * Iron and TIBC (09/04/2025 1:37 PM EST) Iron 92 50 - 160 mcg/dL 09/04/2025 5:14 PM EST [facility] TIBC 316 250 - 450 mcg/dL 09/04/2025 5:14 PM EST [facility] Iron Saturation 29 20 - 50 % 5:14 PM EST [facility] Blood Venous blood specimen / Unknown Venipuncture / Unknown 09/04/2025 1:37 PM EST 09/04/2025 4:48 PM EST us Stacia Petersen DO LAB BLOOD ORDERABLES Final Result [facility] [address] [place] [address], [place] [phone] * (ABNORMAL) Lactate dehydrogenase (09/04/2025 1:37 PM EST) LDH 248(H) 120 - 246 unit/L 09/04/2025 5:11 PM EST [facility] Blood Venous blood specimen / Unknown Venipuncture / Unknown 09/04/2025 1:37 PM EST 09/04/2025 4:48 PM EST Stacia Petersen DO LAB BLOOD ORDERABLES Final Result Performing Organization Address City/[facility]/ZIP Co de Phone Number [facility] [address] [place] [address], [place] [phone] * Haptoglobin (09/04/2025 1:37 PM EST) Pathologist [facility] Haptoglobin 51 30 - 200 mg/dL 09/04/2025 5:11 PM EST [facility] Blood Venous blood specimen / Unknown Venipuncture / Unknown 09/04/2025 1:37 PM EST 09/04/2025 4:48 PM EST Stacia Petersen DO LAB BLOOD ORDERABLES Final Result [facility] [address] [place] [address], [place] [phone] * (ABNORMAL) Ferritin (09/04/2025 1:37 PM EST) Ferritin 401(H) 11 - 307 ng/mL 09/04/2025 5:11 PM EST [facility] Blood Venous blood specimen / Unknown Venipuncture / Unknown 09/04/2025 1:37 PM EST 09/04/2025 4:48 PM EST us Stacia Kay Nicola DO LAB BLOOD ORDERABLES Final Result [facility] [address] [facility] [place] [address], * Cardiac device check - Remote- MURJ (08/24/2025 8:24 PM EST) Only the most recent of3 resultswithin the time period is included. Date Time Interrogation Session [id number] CV DEVICE CHECK Type Interrogation Session Remote CV DEVICE CHECK Implantable Pulse Generator Pipeline Dispatch Operator MDT CV DEVICE CHECK Implantable Pulse Generator Type IPG CV DEVICE CHECK Implantable Pulse Generator Model Rajeev XT SR MRI [id number] CV DEVICE CHECK Implantable Pulse Generator Serial Number [id number] CV DEVICE CHECK Implantable Pulse Generator Implant Date 20230123 CV DEVICE CHECK Battery Remaining Longevity 119.0 CV DEVICE CHECK Battery Voltage 3.010 CV D EVICE CHECK Battery ANTIQUE COLLECTOR Trigger 2.625 CV DEVICE CHECK Battery Status Middle of Service CV DEVICE CHECK Isaias Statistic RV Percent Paced 98.69 CV DEVICE CHECK Lead Channel Sensing Intrinsic Amplitude 21.875 CV DEVICE CHECK Lead Channel Setting Sensing Sensitivity 0.90 CV DEVICE CHECK Lead Channel Impedance Value 380 CV DEVICE CHECK Lead Channel Pacing Threshold Amplitude 0.625 CV DEVICE CHECK Lead Channel Pacing Threshold Pulse Width 0.4 CV DEVICE CHECK Lead Channel RV Pacing Threshold Date 2025-08-16 CV DEVICE CHECK Lead Channel Setting Pacing [...] Anatomical Region Laterality Modality Device Interroga tion 08/16/2025 6:12 PM EST Impressions 08/23/2025 5:16 PM EST Normal Remote: No Events Monthly for [place] * Normal Device Function * Alerts or events: None * Battery: OK, 9.92 yrs * Sensing, impedance and thresholds reviewed * Programmed parameters reviewed * Presenting rhythm reviewed * Heart Rate Histograms reviewed * No significant changes noted Narrative Procedure Note Aleksander Newman MD - 08/24/2025 IMPRESSION: Normal Remote: No Events Monthly for VT * Normal Device Function * Alerts or events: None * Battery: OK, 9.92 yrs * Sensing, impedance and thresholds reviewed * Programmed parameters reviewed * Presenting rhythm reviewed * Heart Rate Histograms reviewed * No significant changes noted Aleksander Newman MD CV IMPLANTABLE CARDIAC DEVICE PROCEDURES Final Result * External MRI Report (08/24/2025) Only the most recent of3 resultswithin the time period is included. Anatomical Region Laterality Modality Magnetic Resonan ce Provider [facility] IMG MRI PROCEDURES Final Result * Basic metabolic panel (04/26/2025 2:57 PM EDT) Blood Venous blood specimen / Unknown Anand Sanchez MD LAB BLOOD ORDERABLES Final Res ult * COLONOSCOPY Anesthesia - MAC; [facility] ENDOSCOPY (02/06/2025 11:18 AM EDT) Anatomical Region [...] malignant neoplasm of colon CPT copyright 2020 [employer]. All rights reserved. The codes documented in this report are preliminary and upon back sewer review may be revised to meet current compliance requirements. MD Jose Armando Trejo MD 02/06/2025 11:19:43 AM This report has been signed electronically.Jose Armando Prasad MD Number of Addenda: 0 Note Initiated On: 02/06/2025 10:56 AM Scope In: Scope Out: Endoscopy Department at [facility] - [address] [place] [phone] Procedure Note Jose Armando Prasad MD - [...] for malignantneoplasm of colon CPT copyright 2020 [employer]. All rights reserved. The codes documented in this report are preliminary and upon back sewer reviewmay be revised to meet current compliance requirements. MD Jose Armando Trejo MD 02/06/2025 11:19:43 AM This report has been signed electronically.Jose Armando Prasad MD Number of Addenda: 0 Note Initiated On: 02/06/2025 10:56 AM Scope In: Scope Out: Endoscopy Department at [facility] - [address] [place] [phone] IMPRESSION: - Diverticulosis in the left colon. [...] LAB CHEMISTRY METHOD 08/26/2024 11:48 AM [facility] Triglycerides 22 0 - 150 mg/dL LAB CHEMISTRY METHOD 08/26/2024 11:48 AM [facility] HDL 79 >=40 mg/dL LAB CHEMISTRY METHOD 08/26/2024 11:48 AM [facility] LDL Calculated 57 0 - 100 mg/dL LAB CHEMISTRY METHOD 08/26/2024 11:48 AM [facility] VLDL Cholesterol Trev 4.4 mg/dL LAB CHEMISTRY METHOD 08/26/2024 11:48 AM [facility] Non HDL Chol. (LDL+VLDL) 61 <145 mg/dL LAB CHEMISTRY METHOD 08/26/2024 11:48 AM [facility] Chol/HDL Ratio 1.8 0.0 - 4.4 LAB CHEMISTRY METHOD 08/26/2024 11:48 AM [facility] Blood Venous blood specimen / Unknown Venipuncture / Unknown 08/26/2024 9:33 AM EST 08/26/2024 9:33 AM EST Anand Sanchez MD LAB BLOOD ORDERABLES Final Res ult [facility] [address] [place] [address], from Last 3 Months or Most Recently Relevant to Health [place] [id number] [employer] [place] MEDICARE ADVANTAGE Advance Directives Documents on File Type Date Recorded Patient Amf Mechanic Expl anation Advance Directives and Living Will [...] (hx) 11/16/2018 AD GRIMES DIRECTIVE Care Teams Dx Board Operator Relationship Specialty Start Date End Date Anand Sanchez MD [address] [place] [phone] PCP - General Internal Medicine 06/05/15
--- OUTSIDE RECORDS SUMMARY | 2025-09-12 07:28 | XMS_ITS | Clinical Summary ---
Author Organization [facility] Prior to 02/18/[address] [place] [address] Care Team Providers Care Business Development Agent Name Role Phone Aannd Sanchez MD Primary Care Provider [phone] Allergies No known active allergies Medications Medication [...] age to complete this topic Care Teams Business Development Agent Relationship Specialty Start Date End Date Anand Sanchez MD PCP - General Internal Medicine 06/02/18
--- OUTSIDE RECORDS SUMMARY | 2025-09-12 07:28 | XMS_ITS | Encounter Summary ---
Author Organization [facility], Address [address] [place] [address] Phone Care Team Providers Care Alterations Expert Name Role Phone Anand Sanchez MD Primary Care Provider [phone] Encounter Details Date Type Department Care Team (Late st Contact Info) Description 02/26/2024 Documentation Only [facility], [address] [place] [address] Zora Machuca [address] [place] [phone] Social History Tobacco Use Types Packs/Day Years [...] on filedocumented in this encounter Care Teams Alterations Expert Relationship Specialty Start Date [place] [address] PCP - General Internal Medicine 02/17/23 documented as of this encounter
--- OUTSIDE RECORDS SUMMARY | 2025-09-12 07:28 | XMS_ITS | Encounter Summary ---
Author Organization [facility], Address [address] [place] [address] Phone Care Team Providers Care Estate Planning Counselor Name Role Phone Anand Sanchez MD Primary Care Provider [phone] Encounter Details Date Type Department Care Team (Late st Contact Info) Description 02/26/2024 Documentation Only [facility], [address] [place] [address] Zora Machuca [address] [place] [phone] Social History Tobacco Use Types Packs/Day Years [...] on filedocumented in this encounter Care Teams Estate Planning Counselor Relationship Specialty Start [place] [address] PCP - General Internal Medicine 02/17/23 documented as of this encounter
--- OUTSIDE RECORDS SUMMARY | 2025-09-12 07:28 | XMS_ITS | Encounter Summary ---
Author Organization [facility], Address [address] [place] [address] Phone Care Team Providers Care Backup Administrator Name Role Phone Anand Sanchez MD Primary Care Provider [phone] Encounter Details Date Type Department Care Team (Late st Contact Info) Description 02/26/2024 Documentation Only [facility], [address] [place] [address] Zora Machuca [address] [place] [phone] Social History Tobacco Use Types Packs/Day Years [...] on filedocumented in this encounter Care Teams Backup Administrator Relationship Specialty Start Date [place] [address] PCP - General Internal Medicine 02/17/23 documented as of this encounter
--- OUTSIDE RECORDS SUMMARY | 2025-09-12 07:29 | XMS_ITS | Encounter Summary ---
Author Organization [facility], Address [address] [place] [address] Phone Care Team Providers Care Supervisor Throwing Department Name Role Phone Anand Sanchez MD Primary Care Provider [phone] Encounter Details Date Type Department Care Team (Late st Contact Info) Description 02/26/2024 Documentation Only [facility], [address] [place] [address] Zora Machuca [address] [place] [phone] Social History Tobacco Use Types Packs/Day Years [...] on filedocumented in this encounter Care Teams Supervisor Throwing Department Relationship Specialty Start Date [place] [address] PCP - General Internal Medicine 02/17/23 documented as of this encounter
--- OUTSIDE RECORDS SUMMARY | 2025-09-12 07:29 | XMS_ITS | Encounter Summary ---
Author Organization [facility], Address [address] [place] [address] Phone Care Team Providers Care [facility] Office Supervisor Name Role Phone Anand Sanchez MD Primary Care Provider [phone] Encounter Details Date Type Department Care Team (Late st Contact Info) Description 04/02/2023 Documentation Only [facility], [address] [place] [address] Anand Sanchez MD [address] [place] [phone] Social History Tobacco Use Types Packs/Day Years [...] on filedocumented in this encounter Care Teams [facility] Office Supervisor Relationship Specialty Start Date [place] [address] PCP - General Internal Medicine 02/17/23 documented as of this encounter
--- OUTSIDE RECORDS SUMMARY | 2025-09-12 07:29 | XMS_ITS | Encounter Summary ---
Author Organization [facility], Address [address] [place] [address] Phone Care Team Providers Care Twister Hand Name Role Phone Anand Sanchez MD Primary Care Provider [phone] Encounter Details Date Type Department Care Team (Late st Contact Info) Description 04/02/2023 Documentation Only [facility], [address] [place] [address] Anand Sanchez MD [address] [place] [id number] Social History Tobacco Use Types Packs/Day Years [...] on filedocumented in this encounter Care Teams Twister Hand Relationship Specialty Start Date [place] [address] PCP - General Internal Medicine 02/17/23 documented as of this encounter
--- NOTE | 2025-09-12 08:44 | W.PM.OPN ---
Operative Note Operative Note Date of Service: 09/12/25 Narrative: Preoperative diagnosis: Elevated PSA Postoperative diagnosis: Elevated PSA Procedure: 1. transrectal ultrasound measurement of prostate 2. transrectal ultrasound-guided pudendal nerve block 3. transrectal ultrasound-guided prostate biopsy 12 core Surgeon: Dr. Neo Mcgraw Anesthetic: 10cc 1% lidocaine Indications for procedure: Elevated PSA Counselling: Technical aspects, risks and benefits of proposed procedure were discussed in full. All questions have been answered, written consent has been obtained and patient agrees to proceed. Procedure: The patient was brought into the procedure area and placed in a left lateral decubitus position. Patient identity confirmed. Perioperative antibiotics confirmed. Safety pause time out performed. ROSEANNA was performed to dilate rectal sphincter Iodine 10cc with 60 cc gel was placed per rectum to reduce infection risk using a catheter tip syringe. 8 Hz Maribel rectal end-fire ultrasound probe was placed transrectally without difficulty. The prostate was visualized. Seminal vesicles were normal. Prostate margins were clearly demarcated. Bladder was seen superiorly. No cystic structures were noted Yes calcifications were noted at the surgical margin The prostate was otherwise heterogenous in nature The prostate was measured in 3 dimensions Prostatic Width: 3.4 cm Prostatic Height: 3.3 cm Urethral Length: 3.6 cm Total volume equals : 38 ml An ultrasound-guided pudendal nerve block was performed using a 22 gauge spinal needle in the sagittal plane. 4 cc of 1% lidocaine placed at the junction of each seminal vesicle and 2 cc placed at the apex of the prostate. A 12 core biopsy was performed with 6 cores each side using an 18 gauge prostate biopsy gun. Two cores each were taken at the prostate apex, mid and base on each side. Cores were spaced between lateral and medial aspects. Each core was examined as placed on specimen foam as part of quality assurance auditor to ensure a minimum 1 cm of length and minimal discontinuity. He tolerated the procedure well with minimal rectal bleeding. Blood pressure remained stable following procedure. He was able to ambulate to bathroom after 5 minutes. Printed instructions regarding antibiotic use and common adverse events from the procedure such as low-grade temperature, potential infection and bleeding were given. He understands to call the office or go to an emergency room should any of these events arise. Pathology: 12 core prostate biopsy. CPT code 14317: Biopsy, prostate, transrectal, ultrasound-guided sextant CPT code 22481: Ultrasonic guidance for needle placement (eg, biopsy, aspiration, injection, localization device), imaging supervision and interpretation
[2025-09-12] MEDS: Lidocaine HCl 1 % MPF 5 ML VIAL 10 ML SUBCUT (08:56)
== END 2025-09-12 07:26 | disposition home or self-care (01) ==
LOC: HO.US 07:25
PROVIDERS: PCP Internal Medicine; Visit Provider Urology
DX: R97.20 Elevated prostate specific antigen [PSA] (principal)
CPT/HCPCS: 55700; 76942; 88305; J2003

== ENCOUNTER → 2025-09-12 07:25 | Outpatient (BNV) | payer MEDICARE, SELFPAY | PROVIDERS: PCP Internal Medicine; Visit Provider Urology | DX: R97.20 Elevated prostate specific antigen [PSA] (principal) | CPT/HCPCS: 55700; 76872; 76942 ==